=== PATIENT | female | born 1980 | race Two or more races ===

== ENCOUNTER 2016-06-27 13:14 | Emergency (ER) | payer OTHER ==
[2016-06-27 13:26] VITALS: TEMP 98; BMI 27.1
--- NOTE | 2016-06-27 13:28 | PDOC ---
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 HISTORY OF PRESENT ILLNESS: The patient's significant other states they were lying in bed this afternoon and while she was sleeping she began shaking and her eyes rolled back inside her head. He states it lasted about 1 minute and then she woke up with no knowledge of what happened. She admits that 2 days ago she had a few episodes of diarrhea, yesterday she vomited and felt lightheaded. She denies biting her tongue, urinary or bowel incontinence, neck pain, changes in vision/hearing. She admits she has chronically low sugar and has had low BP since she lost 110 pounds over the past 1 year. Vital signs on arrival are within normal limits. REVIEW OF SYSTEMS: GENERAL/CONSTITUTIONAL: No fever/chills. No weakness. No weight change. HEAD, EYES, EARS, NOSE AND THROAT: No change in vision. No ear pain or discharge. No sore throat. No tongue biting. CARDIOVASCULAR: No chest pain or shortness of breath. RESPIRATORY: No cough, wheezing, or hemoptysis. GASTROINTESTINAL: No abd pain, nausea, vomiting, diarrhea. GENITOURINARY: No dysuria, frequency, or change in urination. MUSCULOSKELETAL: No joint or muscle swelling or pain. No neck or back pain. SKIN: No rash or easy bruising. NEUROLOGIC: +witnessed seizure. +headache. PHYSICAL EXAM: GENERAL: The patient is awake, alert, and fully oriented, in no acute distress. She is well appearing and ambulatory. HEAD: Normal with no signs of trauma. No hematomas. ENT: Pupils equal, round and reactive to light, extraocular movements intact, sclera anicteric, conjunctiva clear. Neck supple. No tongue lacerations. LUNGS: Clear to auscultation bilaterally. Normal excursion. No respiratory distress or use of accessory muscles. CV: RRR, S1/S2, no MRG. Cap refill < 2 sec. ABDOMEN: Soft, non-distended, non-tender even to deep palpation, no hepatomegaly or splenomegaly, no masses. EXTREMITIES: Normal range of motion, no edema. NEUROLOGICAL: Normal speech, normal gait. CN II-XII grossly intact. PSYCH: Normal mood, normal affect. SKIN: Warm, dry, normal turgor, no rashes or lesions noted. Past History - Past Medical History Allergies/Adverse Reactions: Allergies Allergy/AdvReac Type Severity Reaction Status Date / Time Iodinated Contrast Media - Allergy Verified 06/27/16 13:26 Oral and [Iodinated Contrast Media - IV Dye] mushroom Allergy Verified 06/27/16 13:26 Home Medications: Ambulatory Orders Cyanocobalamin [Vitamin B12 -] 1,000 mcg PO DAILY 06/27/16 Loratadine [Claritin] 10 mg PO DAILY 06/27/16 Meclizine HCl 0 mg PO PRN PRN 06/27/16 Methocarbamol 500 mg PO BID 06/27/16 Metoprolol Tartrate 25 mg PO BID 06/27/16 Naproxen [EC-Naprosyn] 375 mg PO BID PRN 06/27/16 Omeprazole 40 mg PO DAILY 06/27/16 Anemia: Yes Asthma: Yes Cancer: No Cardiac Disorders: Yes (tachy) CVA: No COPD: No CHF: No Dementia: No Diabetes: ("chronically hypoglycemic") GI Disorders: Yes (GASTRIC REFLUX) Disorders: No HTN: Yes Hypercholesterolemia: No Liver Disease: No Seizures: Yes Thyroid Disease: Yes - Surgical History Abdominal Surgery: Yes Appendectomy: No Cardiac Surgery: No Cholecystectomy: No GI Surgery: Yes (gastric bypass: 08/22/2015) Lung Surgery: No Neurologic Surgery: No - Reproductive History (#): 6 Para: 3 Tubal Ligation: Yes - Immunization History Td Vaccination: Yes TDAP Vaccination: Yes Immunization Up to Date: Yes - Psycho/Social/Smoking Cessation Hx Anxiety: No Suicidal Ideation: No Smoking Status: Yes Smoking History: Never smoked Have you smoked in the past 12 months: No Number of Cigarettes Smoked Daily: 0 Cigars Per Day: 0 Hx Alcohol Use: No Drug/Substance Use Hx: No Substance Use Type: None Hx Substance Use Treatment: No *Physical Exam - Vital Signs Last Vital Signs Temp Pulse Resp BP Pulse Ox 98 F 72 18 104/80 100 06/27/16 13:21 06/27/16 13:21 06/27/16 13:21 06/27/16 13:21 06/27/16 13:21 Heart Score/ECG Review - ECG Intrepretation Comment:: Twelve-lead EKG was performed and reviewed by Dr. Talley. There is normal sinus rhythm with a normal rate. The axis is normal. The intervals are normal. There are no ST or T wave abnormalities. Impression: Normal twelve-lead EKG ED Treatment Course - LABORATORY CBC & Chemistry Diagram: 06/27/16 13:50 06/27/16 13:50 Medical Decision Making - Medical Decision Making A/P: 36 y/o female with prior history of stress induced seizures (not on medication) with witnessed seizure today. Plan is as follows: 1. EKG 2. Labs to check glucose and electrolytes 3. UA/hcg 4. Head CT 5. IV fluids Labs normal EKG normal Head CT IMPRESSION: No evidence of acute intracranial pathology. Discussed all results with the patient. Will not start her on daily seizure medication. Instructed her to f/u with Dr. Fiore as soon as possible and return to the ER with any worsening or concerning symptoms. The patient verbalizes understanding of all instructions, has no further questions and is awaiting discharge. *DC/Admit/Observation/Transfer Diagnosis at time of Disposition: Seizure - Discharge Dispostion Disposition: HOME Condition at time of disposition: Good - Referrals Referrals: Santino Guevara [Primary Care Provider] - Ryland Fiore MD [Staff Physician] - Call tomorrow - Patient Instructions Printed Discharge Instructions: DI for Seizure (Not Epilepsy/Seizure Disorder) Additional Instructions: Discharge Instructions: -All of your lab work and the CT scan of your head were normal -Please call Dr. Fiore tomorrow to schedule a follow up appointment -Return to the ER with any worsening or concerning symptoms
[2016-06-27] MEDS ORDERED: SODIUM CHLORIDE 500 ML IV STA (13:37)
[2016-06-27 14:26] LABS: BASOPHIL 0.5 % (0-2.0); EOSINOPHIL 3.6 % (0-4.5); MCH 29.6 pg (25.7-33.7); MCHC 33.6 g/dl (32.0-36.0); MEAN CELL VOLUME 88.1 fl (80-96); NEUTROPHILS 69.6 % (42.8-82.8); PLATELET COUNT 162 K/MM3 (134-434); RDW 13.4 % (11.6-15.6); WHITE BLOOD COUNT 7.4 K/mm3 (4.0-10.0)
[2016-06-27 14:49] LABS: ALBUMIN 3.5 g/dl (3.4-5.0); ANION GAP 5 (8-16); CALCIUM 8.6 mg/dL (8.5-10.1); CO2 27 mmol/L (21-32); CREATININE 0.8 mg/dL (0.55-1.02); GLUCOSE,RANDOM 87 mg/dL (74-106); SGOT/AST 11 U/L (15-37); SGPT/ALT 18 U/L (12-78)
[2016-06-27 14:51] LABS: ALK PHOS 88 U/L (45-117); BILIRUBIN,TOTAL 0.7 mg/dL (0.2-1.0); TOT PROT 6.4 g/dl (6.4-8.2)
--- NOTE | 2016-06-27 16:46 | PDOC ---
*Physical Exam - Vital Signs Last Vital Signs Temp Pulse Resp BP Pulse Ox 98 F 72 18 160/90 100 06/27/16 13:21 06/27/16 13:21 06/27/16 13:21 06/27/16 14:41 06/27/16 13:21 ED Treatment Course - LABORATORY CBC & Chemistry Diagram: 06/27/16 13:50 06/27/16 13:50 - ADDITIONAL ORDERS Additional order review: Laboratory Results 06/27/16 06/27/16 15:06 13:50 Sodium 139 Potassium 4.6 Chloride 107 Carbon Dioxide 27 Anion Gap 5 L BUN 9 Creatinine 0.8 Creat Clearance w eGFR > 60 Random Glucose 87 Calcium 8.6 Magnesium 2.0 Total Bilirubin 0.7 D AST 11 L D ALT 18 D Alkaline Phosphatase 88 Total Protein 6.4 Albumin 3.5 D Serum , Qual Negative 06/27/16 13:50 RBC 4.69 MCV 88.1 MCHC 33.6 RDW 13.4 MPV 10.0 Neutrophils % 69.6 Lymphocytes % 20.7 Monocytes % 5.6 Eosinophils % 3.6 D Basophils % 0.5 - Medications Given in the ED: ED Medications Discontinued Medications Generic Name Dose Route Start Last Admin Trade Name Freq PRN Reason Stop Dose Admin Sodium Chloride 500 mls @ 500 mls/hr 06/27/16 13:37 06/27/16 14:41 Normal Saline - IV 06/27/16 14:36 500 mls/hr ASDIR STA Administration Medical Decision Making - Medical Decision Making 06/27/16 16:43 Patient seen and evaluated with the nurse practitioner. I agree with the overall evaluation, assessment, and management with the following summary of visit: 36y/o F h/o seizures now resolved and off antiepileptics, h/o gastric bypass p/ w GTC seizure in her sleep this AM. lasted < 1 minute, brief post-ictal now feels well. no recent infections. VSS neuro intact labs, CT head, urine all negative. agrees with d/c, understands return criteria. If sz repeat, should restart her meds. Otherwise will f/u with neuro. *DC/Admit/Observation/Transfer Diagnosis at time of Disposition: Seizure - Discharge Dispostion Disposition: HOME Condition at time of disposition: Good - Referrals Referrals: Ryland Fiore MD [Staff Physician] - Call tomorrow Santino Guevara [Primary Care Provider] - - Patient Instructions Printed Discharge Instructions: DI for Seizure (Not Epilepsy/Seizure Disorder) Additional Instructions: Discharge Instructions: -All of your lab work and the CT scan of your head were normal -Please call Dr. Fiore tomorrow to schedule a follow up appointment -Return to the ER with any worsening or concerning symptoms - Post Discharge Activity
[2016-06-27 16:49] VITALS: BP 152/70; PULSE 69
--- NOTE | 2016-06-28 12:30 | EKG ---
Test Reason : Blood Pressure : / mmHG Vent. Rate : 065 BPM Atrial Rate : 065 BPM P-R Int : 138 ms QRS Dur : 056 ms QT Int : 364 ms P-R-T Axes : 000 059 031 degrees QTc Int : 378 ms POOR DATA QUALITY, INTERPRETATION MAY BE ADVERSELY AFFECTED NORMAL SINUS RHYTHM NORMAL ECG WHEN COMPARED WITH ECG OF 30-NOV-2012 15:21, QT HAS SHORTENED Confirmed by MARIANA ELLSWORTH, JUAN ALBERTO ([id number]) on 06/28/2016 12:30:07 PM Referred By: Confirmed By:JUAN ALBERTO PEÑA MD
== END 2016-06-27 16:49 | disposition home or self-care (01) ==
LOC: JER 13:14
PROC: 3E0337Z Introduction of Electrolytic and Water Balance Substance into Peripheral Vein, Percutaneous Approach (ICD-10-PCS; principal; 2016-06-27)
DX: G40.509 Epileptic seizures related to external causes, not intractable, without status epilepticus (principal); I10 Essential (primary) hypertension; K21.9 Gastro-esophageal reflux disease without esophagitis; E16.1 Other hypoglycemia; E07.9 Disorder of thyroid, unspecified
CPT/HCPCS: 36415; 70450-TC; 80053; 83735; 84703; 85025; 93005; 93010; 99283-25

== ENCOUNTER 2016-07-25 21:36 | Emergency (ER) | payer OTHER ==
[2016-07-25 23:04] VITALS: BP 109/66; PULSE 68; TEMP 99.5; BMI 25.8
--- NOTE | 2016-07-26 00:18 | PDOC ---
History of Present Illness - History of Present Illness Initial Comments: 07/26/16 00:44 Patient is a 36 year old female with significant medical hx of asthma, vertigo, GERD, and HTN who is presenting to the ED with two days of left sided chest pain , nasal congestion, sore throat, and cough. Patient describes her chest pain as sharp and non-radiating that hurts when she presses on it. The patient also endorses some facial tenderness, chills, and productive cough with green sputum production. Denies fever. Patient notes shes taken percocet for her symptoms which provided relief. Lnmp: 2012 (uterine ablation) <Rebecca Mota - Last Filed: 07/26/16 00:44> - General History Source: Patient, Old Records Exam Limitations: No Limitations <Muriel Vargas - Last Filed: 07/26/16 00:51> <Justice Ramos - Last Filed: 07/26/16 06:20> - General Chief Complaint: Pain Stated Complaint: ASTHMA Time Seen by Provider: 07/25/16 23:24 Past History <Rebecca Mota - Last Filed: 07/26/16 00:44> - Past Medical History Anemia: Yes Asthma: Yes Cancer: No Cardiac Disorders: Yes (tachy) CVA: No COPD: No CHF: No Dementia: No Diabetes: ("chronically hypoglycemic") GI Disorders: Yes (GASTRIC REFLUX) Disorders: No HTN: Yes Hypercholesterolemia: No Liver Disease: No Seizures: Yes Thyroid Disease: Yes - Surgical History Abdominal Surgery: Yes Appendectomy: No Cardiac Surgery: No Cholecystectomy: No GI Surgery: Yes (gastric bypass: 08/22/2015) Lung Surgery: No Neurologic Surgery: No - Reproductive History (#): 6 Para: 3 Tubal Ligation: Yes - Immunization History Td Vaccination: Yes TDAP Vaccination: Yes Immunization Up to Date: Yes - Psycho/Social/Smoking Cessation Hx Anxiety: No Suicidal Ideation: No Smoking Status: Yes Smoking History: Never smoked Have you smoked in the past 12 months: No Number of Cigarettes Smoked Daily: 0 Cigars Per Day: 0 Information on smoking cessation initiated: No Hx Alcohol Use: No Drug/Substance Use Hx: No Substance Use Type: None Hx Substance Use Treatment: No <Muriel Vargas - Last Filed: 07/26/16 00:51> <Justice Ramos - Last Filed: 07/26/16 06:20> - Past Medical History Allergies/Adverse Reactions: Allergies Allergy/AdvReac Type Severity Reaction Status Date / Time Iodinated Contrast Media - Allergy Verified 07/26/16 00:42 Oral and [Iodinated Contrast Media - IV Dye] mushroom Allergy Verified 07/26/16 00:42 Home Medications: Ambulatory Orders Cyanocobalamin [Vitamin B12 -] 1,000 mcg PO DAILY 06/27/16 Loratadine [Claritin] 10 mg PO DAILY 06/27/16 Meclizine HCl 0 mg PO PRN PRN 06/27/16 Methocarbamol 500 mg PO BID 06/27/16 Metoprolol Tartrate 25 mg PO BID 06/27/16 Naproxen [EC-Naprosyn] 375 mg PO BID PRN 06/27/16 Omeprazole 40 mg PO DAILY 06/27/16 Amoxicillin/Potassium Clav [Augmentin 875-125 Tablet] 1 each PO BID #14 tablet 07/26/16 Ibuprofen 800 mg PO TID #30 tablet 07/26/16 Loratadine [Claritin] 10 mg PO DAILY #30 tablet 07/26/16 Review of Systems - Review of Systems Comments:: 07/26/16 00:45 GENERAL/CONSTITUTIONAL: Chills, generalized weakness. No fever. HEAD, EYES, EARS, NOSE AND THROAT: Sore throat, nasal congestion. Facial tenderness. No change in vision. No ear pain or discharge. CARDIOVASCULAR: Chest pain. No shortness of breath. RESPIRATORY: Productive cough. No wheezing or hemoptysis. GASTROINTESTINAL: No nausea, vomiting, diarrhea or constipation. GENITOURINARY: No dysuria, frequency, or change in urination. MUSCULOSKELETAL: No joint or muscle swelling or pain. No neck or back pain. ENDOCRINE: No increased thirst. No abnormal weight change. SKIN: No rash NEUROLOGIC: No headache, vertigo, loss of consciousness, or change in strength/ sensation. <Rebecca Mota - Last Filed: 07/26/16 00:44> *Physical Exam - Vital Signs Last Vital Signs Temp Pulse Resp BP Pulse Ox 99.5 F 68 14 109/66 100 07/25/16 21:47 07/25/16 21:47 07/25/16 21:47 07/25/16 21:47 07/25/16 21:47 - Physical Exam Comments: 07/26/16 00:47 GENERAL: Awake, alert, and fully oriented, in no acute distress HEAD: No signs of trauma EYES: PERRLA, EOMI, sclera anicteric, conjunctiva clear ENT: Auricles normal inspection, hearing grossly normal, nares patent. Left TM erythematous. Right TM normal with positive light reflex. Oropharynx mildly erythematous but no exudates. Moist mucosa NECK: Normal ROM, supple, posterior cervical lymphadenopathy, JVD, or masses LUNGS: Breath sounds equal, clear to auscultation bilaterally. No wheezes, and no crackles HEART: Regular rate and rhythm, normal S1 and S2, no murmurs, rubs or gallops ABDOMEN: Soft, nontender, normoactive bowel sounds. No guarding, no rebound. No masses EXTREMITIES: Normal range of motion, no edema. No clubbing or cyanosis. No cords, erythema, or tenderness NEUROLOGICAL: Cranial nerves II through XII grossly intact. Normal speech, normal gait SKIN: Warm, Dry, normal turgor, no rashes or lesions noted. HEMATOLOGIC/LYMPHATIC: No anemia, easy bleeding, or history of blood clots. ALLERGIC/IMMUNOLOGIC: No hives or skin allergy. <Rebecca Mota - Last Filed: 07/26/16 00:44> - Vital Signs Last Vital Signs Temp Pulse Resp BP Pulse Ox 99.5 F 68 14 109/66 100 07/25/16 21:47 07/25/16 21:47 07/25/16 21:47 07/25/16 21:47 07/25/16 21:47 <Muirel Vargas - Last Filed: 07/26/16 00:51> - Vital Signs Last Vital Signs Temp Pulse Resp BP Pulse Ox 99.5 F 68 14 109/66 100 07/25/16 21:47 07/25/16 21:47 07/25/16 21:47 07/25/16 21:47 07/25/16 21:47 <Justice Ramos - Last Filed: 07/26/16 06:20> ED Treatment Course - Medications Given in the ED: ED Medications Discontinued Medications Generic Name Dose Route Start Last Admin Trade Name Freq PRN Reason Stop Dose Admin Acetaminophen 1,000 mg 07/26/16 00:26 07/26/16 00:32 Tylenol - PO 07/26/16 00:27 1,000 mg ONCE ONE Administration <Rebecca Mota - Last Filed: 07/26/16 00:44> - ADDITIONAL ORDERS Additional order review: Laboratory Results 07/26/16 00:19 Urine HCG, Qual Negative 07/26/16 00:20 Influenza Types A,B Antigen (SURINDER) - Final Nasopharyngeal Swab - Final 07/26/16 00:20 Group A Strep Rapid Antigen - Final Throat - Medications Given in the ED: ED Medications Discontinued Medications Generic Name Dose Route Start Last Admin Trade Name Roz PRN Reason Stop Dose Admin Acetaminophen 1,000 mg 07/26/16 00:26 07/26/16 00:32 Tylenol - PO 07/26/16 00:27 1,000 mg ONCE ONE Administration Amoxicillin/Clavulanate Potassium 1 tab 07/26/16 01:30 07/26/16 01:54 Augmentin - 875mg Tablet PO 07/26/16 01:31 1 tab ONCE ONE Administration <Justice Ramos - Last Filed: 07/26/16 06:20> Medical Decision Making - Medical Decision Making 07/26/16 00:51 36-year-old female with history of asthma, vertigo presents the emergency department with 2 day history of left-sided neck and ear pain as well as cough productive with green sputum and pleuritic chest pain. Differential diagnosis includes but is not limited to: Influenza, URI, pneumonia, strep pharyngitis, otitis media. Plan: 1. EKG 2. Chest x-ray 3. Influenza PCR 4. Rapid check 5. Observe and reevaluate <Muriel Vargas - Last Filed: 07/26/16 00:51> *DC/Admit/Observation/Transfer - Attestations Scribe Attestion: 07/26/16 00:49 Documentation prepared by Rebecca Mota, acting as health care / medical job titles for Muriel Vargas MD. <Rebecca Mota - Last Filed: 07/26/16 00:44> - Attestations Physician Attestion: 07/26/16 00:53 I, Dr. Muriel Vargas, attest that the scribes documentation that appears above has been prepared under my direction and personally reviewed by me in its entirety. I confirmed that the note above accurately reflects all work, treatment, procedures, and medical decision-making performed by me. <Muriel Vargas - Last Filed: 07/26/16 00:51> - Discharge Dispostion Admit: No <TimothyJustice solis - Last Filed: 07/26/16 06:20> Diagnosis at time of Disposition: Left otitis media, URI (upper respiratory infection) - Discharge Dispostion Disposition: HOME Condition at time of disposition: Stable - Prescriptions Prescriptions: Amoxicillin/Potassium Clav [Augmentin 875-125 Tablet] 1 each PO BID #14 tablet Loratadine [Claritin] 10 mg PO DAILY #30 tablet Ibuprofen 800 mg PO TID #30 tablet - Referrals Referrals: Santino Guevara [Primary Care Provider] -
[2016-07-26] MEDS ORDERED: ACETAMINOPHEN 500 MG TABLET (FP) PO ONE (00:26)
[2016-07-26] MEDS ORDERED: ACETAMINOPHEN 325 MG TABLET (FP) ONE (00:30)
[2016-07-26] MEDS ORDERED: AMOX TR/POT CLAV 875MG/125MG TABLETS (FP) PO ONE (01:30)
[2016-07-26] MEDS ORDERED: AMOX TR/POT CLAV 875MG/125MG TABLETS (FP) ONE (01:54)
--- NOTE | 2016-07-26 11:32 | EKG ---
Test Reason : Blood Pressure : / mmHG Vent. Rate : 073 BPM Atrial Rate : 073 BPM P-R Int : 150 ms QRS Dur : 076 ms QT Int : 366 ms P-R-T Axes : 064 050 034 degrees QTc Int : 403 ms NORMAL SINUS RHYTHM NORMAL ECG WHEN COMPARED WITH ECG OF 27-JUN-2016 13:57, NO SIGNIFICANT CHANGE WAS FOUND Confirmed by JUAN ALBERTO PEÑA MD ([id number]) on 07/26/2016 11:32:26 AM Referred By: Confirmed By:JUAN ALBERTO PEÑA MD
== END 2016-07-26 06:28 | disposition home or self-care (01) ==
LOC: JER 21:36
DX: J06.9 Acute upper respiratory infection, unspecified (principal); H66.92 Otitis media, unspecified, left ear
CPT/HCPCS: 71020-TC; 84703; 87070; 87430; 87804; 93005; 93010; 99282-25

== ENCOUNTER 2016-09-08 12:30 | Emergency (ER) | payer OTHER ==
[2016-09-08 12:36] VITALS: BMI 25.8
--- NOTE | 2016-09-08 12:48 | PDOC ---
History of Present Illness - General History Source: Patient Exam Limitations: No Limitations <Ghazal Nava - Last Filed: 09/08/16 16:28> - General History Source: Patient Exam Limitations: No Limitations - History of Present Illness Initial Comments: 09/08/16 13:38 The patient is a 36 year old female with past medical history of hypertension, GERD, vertigo, stress induced seizures who presents to the ED with complaints of RUQ pain for the past several days. She states the pain is stabbing and radiates down to her RLQ. It is accompanied with nausea, vomiting, and diarrhea as well. She denies any melena or hematochezia. She reports eating breakfast this morning and drinking plenty of water. The patient denies any fever, chills , cough, shortness of breath, chest pain, or urinary symptoms. She adds that she suffers from chronically low blood sugar and low blood pressure. Surgical Hx: Gastric bypass 1 year ago, , uterine ablation PCP: Isabell Beth <Airam Benitez - Last Filed: 09/08/16 16:32> - General Chief Complaint: Pain Stated Complaint: ABD PAIN (PCP SENT) Time Seen by Provider: 09/08/16 12:46 Past History - Past Medical History Anemia: Yes Asthma: Yes Cancer: No Cardiac Disorders: Yes (tachy) CVA: No COPD: No CHF: No Dementia: No Diabetes: ("chronically hypoglycemic") GI Disorders: Yes (GASTRIC REFLUX) Disorders: No HTN: Yes Hypercholesterolemia: No Liver Disease: No Seizures: Yes Thyroid Disease: Yes - Surgical History Abdominal Surgery: Yes Appendectomy: No Cardiac Surgery: No Cholecystectomy: No GI Surgery: Yes (gastric bypass: 08/22/2015) Lung Surgery: No Neurologic Surgery: No - Reproductive History (#): 6 Para: 3 Tubal Ligation: Yes - Immunization History Td Vaccination: Yes TDAP Vaccination: Yes Immunization Up to Date: Yes - Psycho/Social/Smoking Cessation Hx Anxiety: No Suicidal Ideation: No Smoking Status: Yes Smoking History: Never smoked Have you smoked in the past 12 months: No Number of Cigarettes Smoked Daily: 0 Cigars Per Day: 0 Hx Alcohol Use: No Drug/Substance Use Hx: No Substance Use Type: None Hx Substance Use Treatment: No <Ghazal Nava - Last Filed: 09/08/16 16:28> <Airam Benitez - Last Filed: 09/08/16 16:32> - Past Medical History Allergies/Adverse Reactions: Allergies Allergy/AdvReac Type Severity Reaction Status Date / Time Iodinated Contrast Media - Allergy Verified 09/08/16 12:36 Oral and [Iodinated Contrast Media - IV Dye] mushroom Allergy Verified 09/08/16 12:36 Home Medications: Ambulatory Orders Cyanocobalamin [Vitamin B12 -] 1,000 mcg PO DAILY 06/27/16 Methocarbamol 500 mg PO BID 06/27/16 Metoprolol Tartrate 25 mg PO BID 06/27/16 Omeprazole 40 mg PO DAILY 06/27/16 Ibuprofen 800 mg PO TID #30 tablet 07/26/16 Loratadine [Claritin] 10 mg PO DAILY #30 tablet 07/26/16 Dicyclomine HCl [Bentyl] 10 mg PO BID PRN #10 capsule 09/08/16 Ondansetron HCl [Zofran] 4 mg PO BID PRN #10 tablet 09/08/16 Oxycodone HCl/Acetaminophen [Percocet 10-325 mg Tablet] 1 each PO BID 09/08/16 Review of Systems - Review of Systems Able to Perform ROS?: Yes Comments:: 09/08/16 13:39 GENERAL/CONSTITUTIONAL: No fever or chills. No weakness. HEAD, EYES, EARS, NOSE AND THROAT: No change in vision. No ear pain or discharge. No sore throat. CARDIOVASCULAR: No chest pain or shortness of breath. RESPIRATORY: No cough, wheezing, or hemoptysis. GASTROINTESTINAL: Present: RUQ pain, nausea, vomiting, diarrhea No constipation. GENITOURINARY: No dysuria, frequency, or change in urination. MUSCULOSKELETAL: No joint or muscle swelling or pain. No neck or back pain. SKIN: No rash NEUROLOGIC: No headache, vertigo, loss of consciousness, or change in strength/ sensation. ENDOCRINE: No increased thirst. No abnormal weight change. HEMATOLOGIC/LYMPHATIC: No anemia, easy bleeding, or history of blood clots. ALLERGIC/IMMUNOLOGIC: No hives or skin allergy. All Other Systems: Reviewed and Negative <Airam Benitez - Last Filed: 09/08/16 16:32> *Physical Exam - Vital Signs Last Vital Signs Temp Pulse Resp BP Pulse Ox 98.3 F 70 20 110/59 100 07/01/17 12:33 09/08/16 12:33 09/08/16 12:33 09/08/16 12:33 09/08/16 12:33 <Ghazal Nava - Last Filed: 09/08/16 16:28> - Vital Signs Last Vital Signs Temp Pulse Resp BP Pulse Ox 98.3 F 70 20 110/59 100 09/08/16 12:33 09/08/16 12:33 09/08/16 12:33 09/08/16 12:33 09/08/16 12:33 - Physical Exam Comments: 09/08/16 13:41 GENERAL: Awake, alert, and fully oriented, in no acute distress HEAD: No signs of trauma EYES: PERRLA, EOMI, sclera anicteric, conjunctiva clear ENT: Auricles normal inspection, hearing grossly normal, nares patent, oropharynx clear without exudates. Moist mucosa NECK: Normal ROM, supple, no lymphadenopathy, JVD, or masses LUNGS: Breath sounds equal, clear to auscultation bilaterally. No wheezes, and no crackles HEART: Regular rate and rhythm, normal S1 and S2, no murmurs, rubs or gallops ABDOMEN: RUQ and RLQ tenderness, RUQ is worse than RLQ. Soft, normoactive bowel sounds. No guarding, no rebound. No masses EXTREMITIES: Normal range of motion, no edema. No clubbing or cyanosis. No cords, erythema, or tenderness NEUROLOGICAL: Cranial nerves II through XII grossly intact. Normal speech, normal gait SKIN: Warm, Dry, normal turgor, no rashes or lesions noted. <Airam Benitez - Last Filed: 09/08/16 16:32> ED Treatment Course - LABORATORY CBC & Chemistry Diagram: 09/08/16 13:13 09/08/16 13:13 <Ghazal Nava - Last Filed: 09/08/16 16:28> - LABORATORY CBC & Chemistry Diagram: 09/08/16 13:13 09/08/16 13:13 - ADDITIONAL ORDERS Additional order review: Laboratory Results 09/08/16 12:52 Serum , Qual Negative Urine Color Yellow Urine Appearance Clear Urine pH 6.0 Urine Protein Negative Urine Glucose (UA) Negative Urine Ketones Trace H Urine Blood Negative Urine Nitrite Negative Urine Bilirubin Negative Urine Urobilinogen Negative Ur Leukocyte Esterase Negative 09/08/16 13:13 RBC 4.66 MCV 87.2 MCHC 33.7 RDW 13.0 MPV 9.9 Neutrophils % 64.6 Lymphocytes % 25.6 D Monocytes % 7.2 Eosinophils % 1.8 Basophils % 0.8 <Airam Benitez - Last Filed: 09/08/16 16:32> Medical Decision Making - Medical Decision Making 09/08/16 12:47 A portion of this note was documented by scribe services under my direction. I have reviewed the details of the note, within reason, and agree with the documentation with the following case summary and management plan written by me. Nursing documentation reviewed and incorporated into medical decision making This is a 36 yo F with a history of gastric bypass, prior history of lichen planus (per patient caused by IV contrast) Pt presents to the ER with a complaint of abdominal pain, located on the right side of the abdomen for several days Pain located in the RUQ by does radiate down to the RLQ Pain increases when she eats She denies fevers or chills She has had no vomiting History of chronic back pain as well No recent travel No ill contacts Currently pain is sharp, constant Pain worsens with palpation of the abdomen No alleviating factors DD: cholelithiasis, cholecystitis, colitis, Appendicitis Will do labs Will do US Dr Murray was consulted by CNM He saw this patient in consultation 09/08/16 16:10 Laboratory Tests 09/08/16 09/08/16 09/08/16 12:52 13:13 13:13 WBC 8.0 Hgb 13.7 Hct 40.6 Plt Count 174 Sodium 140 Potassium 4.0 Chloride 103 Carbon Dioxide 29 BUN 14 D Creatinine 0.7 Random Glucose 85 Serum , Qual Negative Urine Blood Negative Urine Nitrite Negative Ur Leukocyte Esterase Negative 09/08/16 16:13 CT: no acute appendicitis, no colitis, no mass, no fluid collection U/S no evidence of cholelithiasis, cholecystitis Vitals repeated Pt states her blood pressure runs low Dr Murray updated Will discharge to home follow up with bariatric surgeon 09/08/16 16:28 <Ghazal Nava - Last Filed: 09/08/16 16:28> - Medical Decision Making 09/08/16 14:15 Abdominal Ultrasound as reviewed by Dr. Leong reports normal abdominal sonogram without acute pathology. 09/08/16 16:31 Abdominal/Pelvic C scan as reviewed by Dr. Leong report no acute pathology. <Airam Benitez - Last Filed: 09/08/16 16:32> *DC/Admit/Observation/Transfer - Discharge Dispostion Admit: No <Ghazal Nava - Last Filed: 09/08/16 16:28> - Attestations Scribe Attestion: 09/08/16 13:41 Documentation prepared by Airam Benitez, acting as district medical examiner for Ghazal Nava MD. <Airam Benitez - Last Filed: 09/08/16 16:32> Diagnosis at time of Disposition: Abdominal pain Qualifiers: Abdominal location: right upper quadrant Qualified Code(s): R10.11 - Right upper quadrant pain - Discharge Dispostion Disposition: HOME Condition at time of disposition: Stable - Prescriptions Prescriptions: Dicyclomine HCl [Bentyl] 10 mg PO BID PRN #10 capsule PRN Reason: abdominal pain Ondansetron HCl [Zofran] 4 mg PO BID PRN #10 tablet PRN Reason: Nausea - Referrals Referrals: Isabell Beth [Primary Care Provider] - - Patient Instructions Printed Discharge Instructions: DI for Abdominal Pain-Adult Additional Instructions: Thank you for coming in to the ER today Please take medications as prescribed Please follow up with your gastric surgeon within 1 week (to re assess your surgical site) Please also follow up with Project Management Professor as you may need an endoscopy Please return to the ER for persistent symptoms or new symptoms Please review your studies
--- NOTE | 2016-09-08 13:14 | CONSULT ---
Consult Consult Specialty:: Surgery Reason for Consultation:: Abdominal pain - History of Present Illness History of Present Illness: 36 female presents with on and off abdominal pain x several days Pain is mostly in her RUQ but radiates to the RLQ States that it increases when she eats Has a history of a Abhay en Y gastric Bypass last year at [facility] Denies fevers/chills No vomiting + Diarrhea History of chronic back pain as well - History Source History Provided By: Patient Limitations to Obtaining History: No Limitations - Past Medical History Gastrointestinal: Yes: Other (Morbid obesity s/p abhay en Y gastric bypass) ...LMP: 08/11/15 - Past Surgical History Past Surgical History: Yes: Bariatric Surgery (Gastric bypass) - Alcohol/Substance Use Hx Alcohol Use: No - Smoking History Smoking history: Never smoked Have you smoked in the past 12 months: No Aproximately how many cigarettes per day: 0 Home Medications - Allergies Allergies/Adverse Reactions: Allergies Allergy/AdvReac Type Severity Reaction Status Date / Time Iodinated Contrast Media - Allergy Verified 09/08/16 12:36 Oral and [Iodinated Contrast Media - IV Dye] mushroom Allergy Verified 09/08/16 12:36 - Home Medications Home Medications: Ambulatory Orders Cyanocobalamin [Vitamin B12 -] 1,000 mcg PO DAILY 06/27/16 Loratadine [Claritin] 10 mg PO DAILY 06/27/16 Meclizine HCl 0 mg PO PRN PRN 06/27/16 Methocarbamol 500 mg PO BID 06/27/16 Metoprolol Tartrate 25 mg PO BID 06/27/16 Naproxen [EC-Naprosyn] 375 mg PO BID PRN 06/27/16 Omeprazole 40 mg PO DAILY 06/27/16 Amoxicillin/Potassium Clav [Augmentin 875-125 Tablet] 1 each PO BID #14 tablet 07/26/16 Ibuprofen 800 mg PO TID #30 tablet 07/26/16 Loratadine [Claritin] 10 mg PO DAILY #30 tablet 07/26/16 Family Disease History - Family Disease History Family History: Unremarkable Review of Systems - Review of Systems Constitutional: denies: Chills, Fever Neck: reports: No Symptoms Cardiovascular: denies: Chest Pain Respiratory: denies: Cough Gastrointestinal: reports: Abdominal Pain, Diarrhea. denies: Nausea, Vomiting Genitourinary: reports: No Symptoms Neurological: denies: Change in LOC Pain Intensity: 4 Physical Exam Vital Signs: Vital Signs Temperature 98.3 F 09/08/16 12:33 Pulse Rate 70 09/08/16 12:33 Respiratory Rate 20 09/08/16 12:33 Blood Pressure 110/59 09/08/16 12:33 O2 Sat by Pulse Oximetry (%) 100 09/08/16 12:33 Constitutional: Yes: Calm Eyes: Yes: WNL HENT: Yes: WNL Neck: Yes: Supple Cardiovascular: Yes: Regular Rate and Rhythm Respiratory: Yes: CTA Bilaterally Gastrointestinal: Yes: Soft, Tenderness (RUQ mild tenderness, no Mccray's sign) . No: Tenderness, Rebound Extremities: Yes: WNL Neurological: Yes: Alert, Oriented Problem List - Problems (1) Abdominal pain Code(s): R10.9 - UNSPECIFIED ABDOMINAL PAIN Qualifiers: Abdominal location: right upper quadrant Qualified Code(s): R10.11 - Right upper quadrant pain Assessment/Plan 36 female with Right sided abdominal pain mostly in the RUQ NPO IV fluids CT A/P- rule out appendicitis U/S- evaluate her gallbladder CBC, CMP Will follow
[2016-09-08 13:15] LABS: URINE APPEARANCE CLEAR; URINE BILIRUBIN NEGATIVE (NEGATIVE); URINE BLOOD NEGATIVE (NEGATIVE); URINE COLOR YELLOW; URINE GLUCOSE (UA) NEGATIVE (NEGATIVE); URINE KETONE TRACE (NEGATIVE); URINE LEUK ESTERASE NEGATIVE (NEGATIVE); URINE NITRITE NEGATIVE (NEGATIVE); URINE PROTEIN NEGATIVE (NEGATIVE); URINE UROBILINOGEN NEGATIVE E.U./dl (0.2-1.0)
[2016-09-08 13:16] LABS: BASOPHIL 0.8 % (0-2.0); EOSINOPHIL 1.8 % (0-4.5); MCH 29.4 pg (25.7-33.7); MCHC 33.7 g/dl (32.0-36.0); MEAN CELL VOLUME 87.2 fl (80-96); MEAN PLT VOLUME 9.9 fl (7.5-11.1); NEUTROPHILS 64.6 % (42.8-82.8); PLATELET COUNT 174 K/MM3 (134-434)
[2016-09-08 13:40] LABS: ALK PHOS 91 U/L (45-117); ANION GAP 8 (8-16); BILIRUBIN,TOTAL 0.5 mg/dL (0.2-1.0); CO2 29 mmol/L (21-32); CREATININE 0.7 mg/dL (0.55-1.02); GLUCOSE,RANDOM 85 mg/dL (74-106); SGOT/AST 9 U/L (15-37); SGPT/ALT 17 U/L (12-78); TOT PROT 7.2 g/dl (6.4-8.2)
[2016-09-08 16:20] VITALS: BP 97/58; PULSE 65; TEMP 98.2
== END 2016-09-08 16:46 | disposition home or self-care (01) ==
LOC: JER 12:30
DX: R10.9 Unspecified abdominal pain (principal); Z98.84 Bariatric surgery status; I10 Essential (primary) hypertension
CPT/HCPCS: 36415; 74176-TC; 76705-TC; 80053; 81003; 84703; 85025; 87086; 99284-25

== ENCOUNTER 2016-10-13 13:10 | Emergency (ER) | payer OTHER ==
[2016-10-13 13:18] VITALS: BP 108/65; PULSE 67; TEMP 98.1; BMI 24.3
[2016-10-13] MEDS ORDERED: MAG HYDROX/AL HYDROX/SIMETH 30 ML UNIT-DOSE CUP PO ONE (13:35)
[2016-10-13] MEDS ORDERED: FAMOTIDINE 20 MG/50 ML IVPB 50 ML IVPB ONE ×2 (13:35→13:51)
[2016-10-13] MEDS ORDERED: SUCRALFATE 1 GM/10 ML UNIT DOSE CUPS PO ONE (13:35)
[2016-10-13] MEDS ORDERED: morphine CARPU-JECT 4 MG/1 ML DISP.SYRIN IVPUSH ONE (13:35)
--- NOTE | 2016-10-13 13:47 | PDOC ---
History of Present Illness - General Chief Complaint: Pain, Acute Stated Complaint: BACK/STOMACH PAIN Time Seen by Provider: 10/13/16 13:27 History Source: Patient - History of Present Illness Timing/Duration: reports: other (this am) Abdominal Pain Onset Location: reports: RUQ, epigastric Past History - Past Medical History Allergies/Adverse Reactions: Allergies Allergy/AdvReac Type Severity Reaction Status Date / Time Iodinated Contrast- Oral and Allergy Verified 10/13/16 13:15 IV Dye [Iodinated Contrast Media - IV Dye] mushroom Allergy Verified 10/13/16 13:15 Home Medications: Ambulatory Orders Cyanocobalamin [Vitamin B12 -] 1,000 mcg PO DAILY 06/27/16 Methocarbamol 500 mg PO BID 06/27/16 Metoprolol Tartrate 25 mg PO BID 06/27/16 Omeprazole 40 mg PO DAILY 06/27/16 Ibuprofen 800 mg PO TID #30 tablet 07/26/16 Loratadine [Claritin] 10 mg PO DAILY #30 tablet 07/26/16 Dicyclomine HCl [Bentyl] 10 mg PO BID PRN #10 capsule 09/08/16 Ondansetron HCl [Zofran] 4 mg PO BID PRN #10 tablet 09/08/16 Oxycodone HCl/Acetaminophen [Percocet 10-325 mg Tablet] 1 each PO BID 09/08/16 Sucralfate 1 gm PO BID #420 oral.susp 10/13/16 Anemia: Yes Asthma: Yes Cancer: No Cardiac Disorders: Yes (tachy) CVA: No COPD: No CHF: No Dementia: No Diabetes: ("chronically hypoglycemic") GI Disorders: Yes (GASTRIC REFLUX) Disorders: No HTN: Yes Hypercholesterolemia: No Liver Disease: No Seizures: Yes Thyroid Disease: Yes - Surgical History Abdominal Surgery: Yes Appendectomy: No Cardiac Surgery: No Cholecystectomy: No GI Surgery: Yes (gastric bypass: 08/22/2015) Lung Surgery: No Neurologic Surgery: No - Reproductive History (#): 6 Para: 3 Tubal Ligation: Yes - Immunization History Td Vaccination: Yes TDAP Vaccination: Yes Immunization Up to Date: Yes - Psycho/Social/Smoking Cessation Hx Anxiety: No Suicidal Ideation: No Smoking Status: Yes Smoking History: Never smoked Have you smoked in the past 12 months: No Number of Cigarettes Smoked Daily: 0 Cigars Per Day: 0 Hx Alcohol Use: No Drug/Substance Use Hx: No Substance Use Type: None Hx Substance Use Treatment: No Review of Systems - Review of Systems Constitutional: No: Chills, Fever Respiratory: No: Cough, Shortness of Breath Cardiac (ROS): No: Chest Pain ABD/GI: Yes: Nausea. No: Blood Streaked Bowels, Constipated, Diarrhea, Rectal Bleeding, Vomiting : No: Burning, Dysuria, Flank Pain, Hematuria Musculoskeletal: Yes: Back Pain Neurological: No: Numbness, Tingling, Weakness *Physical Exam - Vital Signs Last Vital Signs Temp Pulse Resp BP Pulse Ox 98.1 F 67 19 108/65 98 10/13/16 13:15 10/13/16 13:15 10/13/16 13:15 10/13/16 13:15 10/13/16 13:15 - Physical Exam General Appearance: Yes: Appropriately Dressed. No: Apparent Distress HEENT: positive: Normal Voice Neck: positive: Supple Respiratory/Chest: positive: Lungs Clear, Normal Breath Sounds. negative: Respiratory Distress Cardiovascular: positive: Regular Rate, S1, S2 Gastrointestinal/Abdominal: positive: Normal Bowel Sounds, Tender (minimal ttp to RUQ and epigastrium), Soft. negative: Distended, Guarding, Rebound, Mass, Hepatomegaly, Spleenomegaly Musculoskeletal: positive: Normal Inspection. 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 Patient states this a.m. she developed right upper quadrant pain that is constant, with no exacerbating or alleviating factors. Also endorses nausea, no vomiting, acute change in bowel movements or dysuria. Patient states she's had similar right upper quadrant pain in the past and was seen here at [facility] and had negative US and CAT scan. Patient also complaining of epigastric pain that might be similar to her ulcer but is unsure. Took galviscon and tums w/ no relief. No melena or hematochezia. Patient also reports that her usual back pain was exacerbated this a.m. and that Percocet is no longer working. No LE weakness, saddle anesthesia or B/B incontinence. Denies any recent trauma. Patient adds that her menses came on this a.m. but denies any lower abdominal cramping See exam RUQ Recurrent Neg US (no gallstones seen) and CT > 3 weeks ago at [facility] Well brianna w/ minimal ttp on exam, neg murpehys -labs -pain control Epigastric pain Endorses h/o ulcer on scope 6 months ago at OSH, neg for hpylori per pt On omeprazole daily +ttp to epigastrium on exam -GI cocktail -reassess Acute on chronic back pain On perc w/ no relief now No e/o cauda equina or infxn -pain control 10/13/16 13:47 10/13/16 14:40 Patient reports feeling significantly better with meds. Labs unremarkable. Patient requesting refill of her percocet in ED. I performed ISTOP on pt, and noted multiple rx for percocet, which appears to be written by 1 provider, for the most part. No suspicious activity on records. I explained to patient that she will need refill from her pain management doctor who she already has an agreement with but that I would give her 1 percocet tab to take at home as needed until she can see her pain provider. Prescription for sucralfate will also be sent to pharmacy. Patient instructed to follow-up with her heavy equipment technician 10/13/16 14:48 *DC/Admit/Observation/Transfer Diagnosis at time of Disposition: Abdominal pain Qualifiers: Abdominal location: unspecified location Qualified Code(s): R10.9 - Unspecified abdominal pain Low back pain Qualifiers: Chronicity: acute Back pain laterality: unspecified Sciatica presence: without sciatica Qualified Code(s): M54.5 - Low back pain - Discharge Dispostion Disposition: HOME Condition at time of disposition: Improved - Prescriptions Prescriptions: Sucralfate 1 gm PO BID #420 oral.susp - Patient Instructions Printed Discharge Instructions: Low Back Pain Additional Instructions: Take meds as directed and f/u with your GI doc and your pain management doctor
[2016-10-13] MEDS ORDERED: morphine CARPU-JECT 4 MG/1 ML DISP.SYRIN ONE (13:50)
[2016-10-13] MEDS ORDERED: SUCRALFATE 1 GM TABLET (FP) ONE (13:50)
[2016-10-13] MEDS ORDERED: MAG HYDROX/AL HYDROX/SIMETH 30 ML UNIT-DOSE CUP ONE (13:51)
[2016-10-13 14:07] LABS: BASOPHIL 0.7 % (0-2.0); EOSINOPHIL 2.8 % (0-4.5); MCHC 33.2 g/dl (32.0-36.0); MEAN CELL VOLUME 87.6 fl (80-96); MEAN PLT VOLUME 9.2 fl (7.5-11.1); NEUTROPHILS 65.4 % (42.8-82.8); PLATELET COUNT 176 K/MM3 (134-434); RDW 13.4 % (11.6-15.6); WHITE BLOOD COUNT 7.7 K/mm3 (4.0-10.0)
[2016-10-13 14:11] LABS: URINE APPEARANCE CLEAR; URINE BLOOD NEGATIVE (NEGATIVE); URINE COLOR AMBER; URINE GLUCOSE (UA) NEGATIVE (NEGATIVE); URINE KETONE NEGATIVE (NEGATIVE); URINE LEUK ESTERASE NEGATIVE (NEGATIVE); URINE NITRITE NEGATIVE (NEGATIVE); URINE PROTEIN NEGATIVE (NEGATIVE); URINE UROBILINOGEN 4.0 E.U/dl mg/dL (0.2-1.0)
[2016-10-13 14:32] LABS: ALBUMIN 3.6 g/dl (3.4-5.0); ANION GAP 5 (8-16); BILIRUBIN,TOTAL 0.5 mg/dL (0.2-1.0); CALCIUM 8.6 mg/dL (8.5-10.1); CO2 28 mmol/L (21-32); CREATININE 0.8 mg/dL (0.55-1.02); GLUCOSE,RANDOM 91 mg/dL (74-106); SGOT/AST 8 U/L (15-37); SGPT/ALT 19 U/L (12-78); TOT PROT 6.4 g/dl (6.4-8.2)
[2016-10-13 14:33] LABS: ALK PHOS 80 U/L (45-117)
[2016-10-13] MEDS ORDERED: OXYCODONE/APAP 5/325MG COMBO TABLET PO ONE (14:40)
[2016-10-13] MEDS ORDERED: OXYCODONE/APAP 5/325MG COMBO TABLET ONE (14:51)
--- NOTE | 2016-10-13 18:50 | PDOC ---
*Physical Exam - Vital Signs Last Vital Signs Temp Pulse Resp BP Pulse Ox 98.1 F 67 19 108/65 98 10/13/16 13:15 10/13/16 13:15 10/13/16 13:15 10/13/16 13:15 10/13/16 13:15 ED Treatment Course - LABORATORY CBC & Chemistry Diagram: 10/13/16 13:50 10/13/16 13:50 - ADDITIONAL ORDERS Additional order review: Laboratory Results 10/13/16 10/13/16 13:50 13:50 Sodium 138 Potassium 4.4 Chloride 105 Carbon Dioxide 28 Anion Gap 5 L BUN 15 Creatinine 0.8 Creat Clearance w eGFR > 60 Random Glucose 91 Calcium 8.6 Total Bilirubin 0.5 AST 8 L ALT 19 Alkaline Phosphatase 80 Total Protein 6.4 Albumin 3.6 Lipase 74 Urine Color Felicia Urine Appearance Clear Urine pH 5.0 Ur Specific [place] >= 1.030 H Urine Protein Negative Urine Glucose (UA) Negative Urine Ketones Negative Urine Blood Negative Urine Nitrite Negative Urine Bilirubin 2.0 Urine Urobilinogen 4.0 e.u/dl H Ur Leukocyte Esterase Negative 10/13/16 13:50 RBC 4.48 MCV 87.6 MCHC 33.2 RDW 13.4 MPV 9.2 Neutrophils % 65.4 Lymphocytes % 24.5 Monocytes % 6.6 Eosinophils % 2.8 Basophils % 0.7 - Medications Given in the ED: ED Medications Discontinued Medications Generic Name Dose Route Start Last Admin Trade Name Freq PRN Reason Stop Dose Admin Al Hydroxide/Mg Hydroxide 30 ml 10/13/16 13:35 10/13/16 14:01 Mylanta Oral Suspension - PO 10/13/16 13:36 30 ml ONCE ONE Administration Famotidine/Sodium Chloride 50 mls @ 100 mls/hr 10/13/16 13:35 10/13/16 14:01 Pepcid 20 Mg Premixed Ivpb - IVPB 10/13/16 14:04 100 mls/hr ONCE ONE Administration Morphine Sulfate 2 mg 10/13/16 13:35 10/13/16 14:01 Morphine Injection - IVPUSH 10/13/16 13:36 2 mg ONCE ONE Administration Oxycodone/Acetaminophen 1 combo 10/13/16 14:40 10/13/16 14:56 Percocet 5/325 - PO 10/13/16 14:41 1 combo ONCE ONE Administration Sucralfate 1 gm 10/13/16 13:35 10/13/16 14:01 Carafate Oral Suspension - PO 10/13/16 13:36 1 gm ONCE ONE Administration Medical Decision Making - Medical Decision Making 10/13/16 18:52 Agree with PA's evaluation, asseessment, and plan. 36 F with acute on chronic abdominal pain, now resolved s/p GI meds - DC home with GI f/u *DC/Admit/Observation/Transfer Diagnosis at time of Disposition: Abdominal pain Qualifiers: Abdominal location: unspecified location Qualified Code(s): R10.9 - Unspecified abdominal pain Low back pain Qualifiers: Chronicity: acute Back pain laterality: unspecified Sciatica presence: without sciatica Qualified Code(s): M54.5 - Low back pain - Discharge Dispostion Disposition: HOME Condition at time of disposition: Improved - Prescriptions Prescriptions: Sucralfate 1 gm PO BID #420 oral.susp - Referrals Referrals: Santino Guevara [Primary Care Provider] - - Patient Instructions Printed Discharge Instructions: Low Back Pain Additional Instructions: Take meds as directed and f/u with your GI doc and your pain management doctor - Post Discharge Activity - Attestations Physician Attestion: 10/13/16 18:53 I, Dr. Rogers Castaneda MD, attest that this document has been prepared under my direction and personally reviewed by me in its entirety. I further attest, that it accurately reflects all work, treatment, procedures and medical decision -making performed by me.
== END 2016-10-13 14:58 | disposition home or self-care (01) ==
LOC: JER 13:10
PROC: 3E033GC Introduction of Other Therapeutic Substance into Peripheral Vein, Percutaneous Approach (ICD-10-PCS; principal; 2016-10-13)
PROC: 3E033NZ Introduction of Analgesics, Hypnotics, Sedatives into Peripheral Vein, Percutaneous Approach (ICD-10-PCS; 2016-10-13)
DX: R10.9 Unspecified abdominal pain (principal); M54.5 Low back pain; G89.29 Other chronic pain; I10 Essential (primary) hypertension; D64.9 Anemia, unspecified; J45.909 Unspecified asthma, uncomplicated; K21.9 Gastro-esophageal reflux disease without esophagitis; G40.909 Epilepsy, unspecified, not intractable, without status epilepticus; Z91.041 Radiographic dye allergy status; Z91.018 Allergy to other foods; Z98.84 Bariatric surgery status
CPT/HCPCS: 36415; 80053; 81003; 83690; 85025; 96365; 96375; 99284-25

== ENCOUNTER 2016-11-01 03:10 | Emergency (ER) | payer OTHER ==
[2016-11-01] MEDS ORDERED: SODIUM CHLORIDE 0.9% 1000 ML INFUS.BAG IV ONE (03:24)
[2016-11-01 03:34] VITALS: BP 112/73; PULSE 72; TEMP 98.3; BMI 24.3
--- NOTE | 2016-11-01 03:50 | PDOC ---
Attending Attestation - Resident Resident Name: Maurice Mix - ED Attending Attestation I have performed the following: I have examined & evaluated the patient, The case was reviewed & discussed with the resident, I agree w/resident's findings & plan, Exceptions are as noted - HPI HPI: 11/01/16 03:48 history of gastric bypass. Patient has hypoglycemia. Patient states she ate just prior to going to bed. Pt s/p seizure due to hypoglycemia. Pt denies any complaints at this time. Denies fever or dysuria - Physicial Exam PE: 11/01/16 03:48 *Physical Exam General Appearance: Yes: Appropriately Dressed. No: Apparent Distress, Intoxicated HEENT: positive: EOMI, JOSE, Normal ENT Inspection, Normal Voice, TMs Normal, Pharynx Normal. negative: Pale Conjunctivae, Photophobia, Scleral Icterus (R), Scleral Icterus (L) Neck: positive: Trachea midline, Normal Thyroid, Supple. negative: Tender, Rigid, Carotid bruit, Stridor, Lymphadenopathy (R), Lymphadenopathy (L), Thyromegaly Respiratory/Chest: positive: Lungs Clear, Normal Breath Sounds. negative: Chest Tender, Respiratory Distress, Accessory Muscle Use, Labored Respiration, RES, Crackles, Rales, Rhonchi, Stridor, Wheezing, Dullness Cardiovascular: positive: Regular Rhythm, Regular Rate, S1, S2. negative: Edema , JVD, Murmur, Bradycardia, Tachycardia Vascular Pulses: Dorsalis-Pedis (R): 2+, Doralis-Pedis (L): 2+ Gastrointestinal/Abdominal: positive: Normal Bowel Sounds, Flat, Soft. negative : Tender, Organomegaly, Pulsatile Mass, Increased Bowel Sounds, Decreased BS, Distended, Guarding, Rebound, Hernia, Hepatomegaly, Spleenomegaly Lymphatic: negative: Adenopathy, Tenderness Musculoskeletal: positive: Normal Inspection. negative: CVA Tenderness, Decreased Range of Motion Extremity: positive: Normal Capillary Refill, Normal Inspection, Normal Range of Motion, Pelvis Stable. negative: Tender, Pedal Edema, Swelling, Erythema Integumentary: positive: Normal Color, Dry, Warm. 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 negative: EOM Palsy, Facial Droop, Sensory Deficit - Medical Decision Making 11/01/16 19:37 Pt discharged as all studies were stable.
[2016-11-01 03:59] LABS: BASOPHIL 0.5 % (0-2.0); MCH 29.6 pg (25.7-33.7); MCHC 33.7 g/dl (32.0-36.0); MEAN CELL VOLUME 88.1 fl (80-96); MEAN PLT VOLUME 9.9 fl (7.5-11.1); NEUTROPHILS 61.1 % (42.8-82.8); PLATELET COUNT 184 K/MM3 (134-434); RDW 13.8 % (11.6-15.6); WHITE BLOOD COUNT 9.6 K/mm3 (4.0-10.0)
--- NOTE | 2016-11-01 04:03 | PDOC ---
History of Present Illness - General Stated Complaint: DIABETES Time Seen by Provider: 11/01/16 03:23 History Source: Patient Exam Limitations: No Limitations - History of Present Illness Initial Comments: 11/01/16 04:49 The patient is a 36F with a PMH of hypoglycemia who presented to the ED via EMS for a witnessed seizure, possibly 2/2 to a hypoglycemic episode. The daughter is present and providing some of the history. The daughter states that she heard her mother having some deep breathing then saw her shaking. The mother was disoriented when she woke up from her seizure. No head trauma and no tongue biting was noted. EMS was called and BG was 62 on their arrival. BP was 128/62. They administered D10 with fluids and her BG was 142 on recheck. She was stable on arrival. Past History - Past Medical History Allergies/Adverse Reactions: Allergies Allergy/AdvReac Type Severity Reaction Status Date / Time Iodinated Contrast- Oral and Allergy Verified 11/01/16 04:35 IV Dye [Iodinated Contrast Media - IV Dye] mushroom Allergy Verified 11/01/16 04:35 Home Medications: Ambulatory Orders Metoprolol Tartrate 25 mg PO BID 06/27/16 Oxycodone HCl/Acetaminophen [Percocet 10-325 mg Tablet] 1 each PO BID 09/08/16 Metformin HCl [Glucophage] 500 mg PO 11/01/16 Anemia: Yes Asthma: Yes Cancer: No Cardiac Disorders: Yes (tachy) CVA: No COPD: No CHF: No Dementia: No Diabetes: ("chronically hypoglycemic") GI Disorders: Yes (GASTRIC REFLUX) Disorders: No HTN: Yes Hypercholesterolemia: No Liver Disease: No Seizures: Yes Thyroid Disease: Yes - Surgical History Abdominal Surgery: Yes Appendectomy: No Cardiac Surgery: No Cholecystectomy: No GI Surgery: Yes (gastric bypass: 08/22/2015) Lung Surgery: No Neurologic Surgery: No - Reproductive History (#): 6 Para: 3 Tubal Ligation: Yes - Immunization History Td Vaccination: Yes TDAP Vaccination: Yes Immunization Up to Date: Yes - Psycho/Social/Smoking Cessation Hx Anxiety: No Suicidal Ideation: No Smoking Status: Yes Smoking History: Never smoked Have you smoked in the past 12 months: No Number of Cigarettes Smoked Daily: 0 Cigars Per Day: 0 Hx Alcohol Use: No Drug/Substance Use Hx: No Substance Use Type: None Hx Substance Use Treatment: No Review of Systems - Review of Systems Able to Perform ROS?: Yes Is the patient limited [place]ian proficient: No Constitutional: No: Chills, Fever HEENTM: No: Blurred Vision Respiratory: No: Shortness of Breath Cardiac (ROS): No: Chest Pain ABD/GI: No: Nausea, Vomiting, Other (abd pain) : No: Burning, Dysuria Neurological: Yes: Headache. No: Numbness, Tingling, Weakness *Physical Exam - Vital Signs Last Vital Signs Temp Pulse Resp BP Pulse Ox 98.3 F 72 18 112/73 100 11/01/16 03:15 11/01/16 03:15 11/01/16 03:15 11/01/16 03:15 11/01/16 03:15 - Physical Exam General Appearance: Yes: Nourished, Appropriately Dressed. No: Mild Distress HEENT: positive: Normal Voice, Hearing Grossly Normal Respiratory/Chest: positive: Lungs Clear, Normal Breath Sounds. negative: Chest Tender, Respiratory Distress, Accessory Muscle Use Cardiovascular: positive: Regular Rhythm, Regular Rate, S1, S2. negative: Diastolic Murmur, Systolic Murmur Gastrointestinal/Abdominal: positive: Normal Bowel Sounds, Flat, Soft. negative : Tender, Protuberent, Distended, Guarding, Rebound Extremity: negative: Swelling, Calf Tenderness Integumentary: positive: Dry, Warm. 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 negative: EOM Palsy, Facial Droop, Numbness, Sensory Deficit, Depressed Affect ED Treatment Course - LABORATORY CBC & Chemistry Diagram: 11/01/16 03:34 11/01/16 03:34 Medical Decision Making - Medical Decision Making 11/01/16 05:24 The patient is a 36F with a PMH of hypoglycemia who presented to the ED via EMS after having a witnessed seizure. The patient did not hit her head. She is currently on a D10 drip and BG is being monitored. Basic labs have been sent. Will reassess when labs return. 11/01/16 06:14 Repeat BG is 170. Patient desires d/c. All labs WNL. *DC/Admit/Observation/Transfer Diagnosis at time of Disposition: Hypoglycemia - Discharge Dispostion Disposition: HOME Condition at time of disposition: Improved Admit: No - Patient Instructions Printed Discharge Instructions: DI for Hypoglycemia, Hypoglycemia Additional Instructions: Please return to the ED if symptoms persist, worsen, or if new symptoms arise. Please follow up with your primary care doctor in 2-3 days. - Attestations Physician Attestion: 11/01/16 06:15 I, Dr. Maurice Mix, attest that this document has been prepared under my direction and personally reviewed by me in its entirety. I further attest, that it accurately reflects all work, treatment, procedures, and medical decision- making performed by me.
[2016-11-01 04:22] LABS: ALBUMIN 3.6 g/dl (3.4-5.0); ALK PHOS 76 U/L (45-117); ANION GAP 6 (8-16); BILIRUBIN,TOTAL 0.3 mg/dL (0.2-1.0); CALCIUM 8.5 mg/dL (8.5-10.1); CO2 29 mmol/L (21-32); CREATININE 0.8 mg/dL (0.55-1.02); GLUCOSE,RANDOM 79 mg/dL (74-106); SGOT/AST 6 U/L (15-37); SGPT/ALT 17 U/L (12-78); TOT PROT 6.4 g/dl (6.4-8.2)
[2016-11-01 05:17] LABS: URINE APPEARANCE CLEAR; URINE BILIRUBIN NEGATIVE (NEGATIVE); URINE BLOOD NEGATIVE (NEGATIVE); URINE COLOR YELLOW; URINE GLUCOSE (UA) 1+ (NEGATIVE); URINE KETONE NEGATIVE (NEGATIVE); URINE LEUK ESTERASE NEGATIVE (NEGATIVE); URINE NITRITE NEGATIVE (NEGATIVE); URINE PROTEIN NEGATIVE (NEGATIVE)
--- NOTE | 2016-11-01 10:51 | EKG ---
Test Reason : Blood Pressure : / mmHG Vent. Rate : 063 BPM Atrial Rate : 063 BPM P-R Int : 146 ms QRS Dur : 076 ms QT Int : 378 ms P-R-T Axes : 076 071 058 degrees QTc Int : 386 ms NORMAL SINUS RHYTHM SEPTAL INFARCT , AGE UNDETERMINED ABNORMAL ECG WHEN COMPARED WITH ECG OF 26-JUL-2016 01:16, NO SIGNIFICANT CHANGE WAS FOUND Confirmed by MARIANA ELLSWORTH, JUAN ALBERTO ([id number]) on 11/01/2016 10:51:01 AM Referred By: Confirmed By:JUAN ALBERTO PEÑA MD
== END 2016-11-01 05:20 | disposition home or self-care (01) ==
LOC: JER 03:10
DX: E11.649 Type 2 diabetes mellitus with hypoglycemia without coma (principal); Z79.84 Long term (current) use of oral hypoglycemic drugs; G40.909 Epilepsy, unspecified, not intractable, without status epilepticus
CPT/HCPCS: 36415; 80053; 81003; 84703; 85025; 93005; 93010; 99282-25

== ENCOUNTER 2017-01-08 11:35 | Emergency (ER) | payer OTHER ==
[2017-01-08 11:52] VITALS: BP 117/66; PULSE 78; TEMP 98.2; BMI 24.3
--- NOTE | 2017-01-08 13:11 | PDOC ---
History of Present Illness - General Chief Complaint: Pain, Acute Stated Complaint: POST OP/ MOUTH PAIN Time Seen by Provider: 01/08/17 12:51 History Source: Patient Exam Limitations: No Limitations - History of Present Illness Initial Comments: 01/08/17 13:29 Chief complaint:Headache , pain at extraction site upper and rt. lower posterior molar HPI: She is a 36-year-old female with a history of anemia, asthma, tachycardia, GERD, hypertension, and gastric sleeve here today due to having the patient describes as a migraine generalized headache and nausea today unrelieved by taking ibuprofen. Patient reports having extraction of her bilateral upper wisdom tooth and right lower wisdom tooth on 12/31/2016. Patient denies any fever. So reports being slightly nauseous denies any vomiting. Patient denies any chance of had tubal ligation. PMH: asthma, gerd, Meds: pen vk 500 mg bid Allergies: iodinated contrast, oral and IV dye, mushrrom PSH:, gastric bypass, gerd tubal ligation, anemia, tachycardia REVIEW OF SYSTEMS GENERAL/CONSTITUTIONAL: No fever or chills. No weakness. No weight change. HEAD, EYES, EARS, NOSE AND THROAT: No change in vision, photophobia, phonophobia. No ear pain or discharge. No sore throat Pain posterior upper and rt lower posterior molar site CARDIOVASCULAR: No chest pain or shortness of breath. RESPIRATORY: No cough, wheezing, or hemoptysis. GASTROINTESTINAL: nausea, no vomiting. No diarrhea or constipation. No rectal bleeding. GENITOURINARY: No dysuria, frequency, or change in urination. MUSCULOSKELETAL: No joint or muscle swelling or pain. No neck or back pain. SKIN AND BREASTS: No rash or easy bruising. NEUROLOGIC: headache, denies vertigo, loss of consciousness, altered mental status, or loss of sensation. PHYSICAL EXAM General Appearance: Appropriately dressed. No apparent distress, no intoxication HEENT: EOMI, JOSE. No nystagmus. Normal voice. TMs normal, pharynx normal. No pallor of conjunctivae, no scleral icterus, extraction cavity posterior molar b/ l upper and rt. lower minimal surrounding edema Neck: Supple, trachea midline. No tenderness, rigidity, carotid bruit, stridor , lymphadenopathy, thyromegaly. Respiratory/Chest: Lungs CTAB. Breath sounds normal. No chest tenderness, despiratory ristress, accessory muscle Use, labored respiration, crackles, rales, rhonchi, stridor, wheezing, dullness Cardiovascular: Regular Rhythm, Regular Rate, S1, S2. No JVD, Murmur, Bradycardia, Tachycardia Vascular Pulses: Dorsalis-Pedis (R): 2+, Doralis-Pedis (L): 2+] Gastrointestinal/Abdominal: positive for Normal Bowel Sounds, Flat, Soft. No Tenderness, Organomegaly, Pulsatile Mass, Distention, Guarding, Rebound, Hernia , Hepatomegaly, Spleenomegaly Musculoskeletal: Normal Inspection. No CVA Tenderness, Decreased Range of Motion] Integumentary: Normal Color, Dry, Warm, . 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 No appreciable EOM Palsy, Facial Droop or Sensory Deficit 01/08/17 13:41 01/08/17 14:37 Timing/Duration: getting worse Severity: mild Associated Symptoms: reports: headaches, nausea/vomiting (NAUSEA TODAY ) Past History - Past Medical History Allergies/Adverse Reactions: Allergies Allergy/AdvReac Type Severity Reaction Status Date / Time Iodinated Contrast- Oral and Allergy Severe Swelling Verified 01/08/17 11:47 IV Dye [Iodinated Contrast Media - IV Dye] mushroom Allergy Severe Rash Verified 01/08/17 11:47 Home Medications: Ambulatory Orders Albuterol Sulfate [Proair Respiclick] 90 mcg IH ASDIR 01/08/17 Omeprazole 20 mg PO ASDIR 01/08/17 Anemia: Yes Asthma: Yes Cancer: No Cardiac Disorders: Yes (tachy) CVA: No COPD: No CHF: No Dementia: No Diabetes: ("chronically hypoglycemic") GI Disorders: Yes (GASTRIC REFLUX) Disorders: No HTN: Yes Hypercholesterolemia: No Liver Disease: No Seizures: Yes Thyroid Disease: Yes - Surgical History Abdominal Surgery: Yes Appendectomy: No Cardiac Surgery: No Cholecystectomy: No GI Surgery: Yes (gastric bypass: 08/22/2015) Lung Surgery: No Neurologic Surgery: No - Reproductive History (#): 6 Para: 3 Tubal Ligation: Yes - Immunization History Td Vaccination: Yes TDAP Vaccination: Yes Immunization Up to Date: Yes - Suicide/Smoking/Psychosocial Hx Smoking Status: Yes Smoking History: Never smoked Have you smoked in the past 12 months: No Number of Cigarettes Smoked Daily: 0 Cigars Per Day: 0 Hx Alcohol Use: No Drug/Substance Use Hx: No Substance Use Type: None Hx Substance Use Treatment: No Review of Systems - Review of Systems Able to Perform ROS?: Yes Constitutional: No: Symptoms Reported HEENTM: Yes: Mouth Pain (site of extractions wisdom upper and rt. lower) Respiratory: No: Symptoms reported Cardiac (ROS): No: Symptoms Reported ABD/GI: Yes: Nausea : No: Symptoms Reported Musculoskeletal: No: Symptoms Reported Integumentary: No: Symptoms Reported Neurological: Yes: Headache (generalized ) *Physical Exam - Vital Signs Last Vital Signs Temp Pulse Resp BP Pulse Ox 98.2 F 78 18 117/66 100 01/08/17 11:47 01/08/17 11:47 01/08/17 11:47 01/08/17 11:47 01/08/17 11:47 - Physical Exam General Appearance: Yes: Appropriately Dressed HEENT: positive: TMs Normal, Other (b/l upper posterior extraction site, rt. lower minimal surrounding edema). negative: Pharyngeal Erythema, Tonsillar Exudate, Tonsillar Erythema, Nasal Congestion, Rhinorrhea, Sinus Tenderness Neck: negative: Lymphadenopathy (R), Lymphadenopathy (L) Respiratory/Chest: positive: Lungs Clear, Normal Breath Sounds. negative: Chest Tender, Respiratory Distress Cardiovascular: positive: Regular Rhythm, Regular Rate, S1, S2 Gastrointestinal/Abdominal: positive: Normal Bowel Sounds, Soft. 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 negative: Respond to painful stimul, Numbness, Sensory Deficit Medical Decision Making - Medical Decision Making 01/08/17 13:41 She is a 36-year-old female with a history of anemia, asthma, tachycardia, GERD , hypertension, and gastric sleeve here today due to having the patient describes as a migraine generalized headache and nausea today unrelieved by taking ibuprofen. Patient reports having extraction of her bilateral upper wisdom tooth and right lower wisdom tooth on 12/31/2016. Patient denies any fever. So reports being slightly nauseous denies any vomiting. Patient denies any chance of had tubal ligation. Migraine Nausea PLAN: IV insert NS 1 liter bolus toradol 30 mg IV push reglan 10 mg IV PB Search Terms: Susan Mendosa, 1980 Search Date: 01/08/2017 01:16:30 PM This report was requested by: Katherine Dietrich | Reference #: [id number] Others' Prescriptions Patient Name: Susan Shaikh Date: 1980 Address: [address] [place] [address] Sex: Female Rx Written Rx Dispensed Drug Quantity Days Supply Prescriber Name 12/29/2016 12/31/2016 zolpidem tartrate 5 mg tablet 30 30 Ryanne Guevara MD 12/31/2016 12/31/2016 hydrocodone-acetaminophen 5-325 tablet 20 5 Dilshad Acuña () Patient Name: Susan Mendosa Date: 1980 Address: [address] [place] [address] Sex: Female Rx Written Rx Dispensed Drug Quantity Days Supply Prescriber Name 12/10/2016 12/24/2016 oxycodone-acetaminophen 10-325 mg tab 90 30 Aguila , Priscilla 01/08/17 14:39 feeling much better will go home follow up with oral surgeon continue with pen VK until finished *DC/Admit/Observation/Transfer Diagnosis at time of Disposition: Pain, dental Migraine Qualifiers: Migraine type: unspecified Status migrainosus presence: without status migrainosus Intractability: not intractable Qualified Code(s): G43.909 - Migraine, unspecified, not intractable, without status migrainosus - Discharge Dispostion Disposition: HOME Condition at time of disposition: Stable - Referrals Referrals: Santino Guevara [Primary Care Provider] - - Patient Instructions Additional Instructions: FOLLOW UP WITH ORAL SURGEON SOON POSSIBLE CONTINUE PENICILLIN UNTIL COMPLETED RETURN TO EMERGENCY ROOM IF SYMPTOMS WORSEN ANY FACIAL SWELLING OR FEVER OR WORSENING PAIN TAKE ACETAMINOPHEN NEEDED DIRECTED BY ACADEMIC ASSOCIATE PATIENT VOICED understanding of discharge instructions and all questions were answered Thank you for choosing [facility] emergency room for your medical needs today
[2017-01-08] MEDS ORDERED: KETOROLAC TROMETHAMINE 60 MG/2 ML VIAL IVPUSH ONE (13:20)
[2017-01-08] MEDS ORDERED: METOCLOPRAMIDE HCL INJECTION 10 MG/2 ML VIAL IVPB ONE (13:22)
[2017-01-08] MEDS ORDERED: METOCLOPRAMIDE HCL INJECTION 10 MG/2 ML VIAL ONE (13:23)
[2017-01-08] MEDS ORDERED: KETOROLAC TROMETHAMINE 30 MG/1 ML VIAL ONE (13:24)
[2017-01-08] MEDS ORDERED: SODIUM CHLORIDE 1,000 ML IV STA (13:47)
== END 2017-01-08 14:56 | disposition home or self-care (01) ==
LOC: JERFT 11:35
PROC: 3E0337Z Introduction of Electrolytic and Water Balance Substance into Peripheral Vein, Percutaneous Approach (ICD-10-PCS; principal; 2017-01-08)
PROC: 3E0333Z Introduction of Anti-inflammatory into Peripheral Vein, Percutaneous Approach (ICD-10-PCS; 2017-01-08)
PROC: 3E033GC Introduction of Other Therapeutic Substance into Peripheral Vein, Percutaneous Approach (ICD-10-PCS; 2017-01-08)
DX: G43.909 Migraine, unspecified, not intractable, without status migrainosus (principal); K08.9 Disorder of teeth and supporting structures, unspecified; G89.18 Other acute postprocedural pain
CPT/HCPCS: 96361; 96374; 96375; 99281-25

== ENCOUNTER 2017-03-27 10:49 | Emergency (ER) | payer OTHER ==
[2017-03-27 11:00] VITALS: BMI 24.3
--- NOTE | 2017-03-27 13:41 | PDOC ---
History of Present Illness - General Chief Complaint: Lightheaded Stated Complaint: FELL Time Seen by Provider: 03/27/17 13:24 History Source: Patient - History of Present Illness Initial Comments: 03/27/17 13:38 Patient is a 36 y.o. female with a PMH of seizure disorder (on Gabapentin, most recent seizure 01/2017 2/2 to hypoglycemia) and HTN who presents to the ED today following a mechanical fall down a flight of stairs. Patient states she was walking down a flight of stairs in her apartment complex when she caught her shoe on a nailhead protruding from the staircase. Patient states she attempted to brace her fall using the siderails but fell backwards hitting her back but denies any head trauma/LOC. Patient was immediately ambulatory after the fall and is now c/o diffuse back pain and B/L UE pain. Allergies: IV contrast Surgical: Gastric Bypass Past History - Past Medical History Allergies/Adverse Reactions: Allergies Allergy/AdvReac Type Severity Reaction Status Date / Time Iodinated Contrast- Oral and Allergy Severe Swelling Verified 03/27/17 11:00 IV Dye [Iodinated Contrast Media - IV Dye] mushroom Allergy Severe Rash Verified 03/27/17 11:00 Home Medications: Ambulatory Orders Gabapentin 100 mg PO HS 03/27/17 Metoprolol Succinate [Toprol Xl] 50 mg PO DAILY 03/27/17 Anemia: Yes Asthma: Yes Cancer: No Cardiac Disorders: Yes (tachy) CVA: No COPD: No CHF: No Dementia: No Diabetes: ("chronically hypoglycemic") GI Disorders: Yes (GASTRIC REFLUX) Disorders: No HTN: Yes Hypercholesterolemia: No Liver Disease: No Seizures: Yes Thyroid Disease: Yes - Surgical History Abdominal Surgery: No Appendectomy: No Cardiac Surgery: No Cholecystectomy: No GI Surgery: Yes (gastric bypass: 08/22/2015) Lung Surgery: No Neurologic Surgery: No - Reproductive History (#): 6 Para: 3 Tubal Ligation: Yes - Immunization History Td Vaccination: Yes TDAP Vaccination: Yes Immunization Up to Date: Yes - Suicide/Smoking/Psychosocial Hx Smoking Status: Yes Smoking History: Never smoked Have you smoked in the past 12 months: No Number of Cigarettes Smoked Daily: 0 Cigars Per Day: 0 Hx Alcohol Use: No Drug/Substance Use Hx: No Substance Use Type: None Hx Substance Use Treatment: No Review of Systems - Review of Systems Constitutional: No: Chills, Fever HEENTM: No: Blurred Vision, Double Vision Respiratory: No: Shortness of Breath Cardiac (ROS): No: Chest Pain ABD/GI: No: Constipated, Diarrhea, Nausea, Vomiting : No: Burning, Dysuria Musculoskeletal: Yes: Back Pain *Physical Exam - Vital Signs Last Vital Signs Temp Pulse Resp BP Pulse Ox 98.1 F 92 H 18 119/63 100 03/27/17 10:56 03/27/17 10:56 03/27/17 10:56 03/27/17 10:56 03/27/17 10:56 - Physical Exam General Appearance: Yes: Nourished, Appropriately Dressed HEENT: positive: EOMI, JOSE Neck: positive: Tender, Supple Respiratory/Chest: positive: Lungs Clear Cardiovascular: positive: S1, S2 Vascular Pulses: Dorsalis-Pedis (R): 2+, Doralis-Pedis (L): 2+ Gastrointestinal/Abdominal: positive: Normal Bowel Sounds, Soft Musculoskeletal: positive: Vertebral Tenderness Extremity: positive: Normal Capillary Refill, Normal Inspection, Normal Range of Motion, Pelvis Stable Integumentary: positive: Normal Color, Dry, Warm 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 On PE patient is hemodynamically stable, has full ROM of her extremities, neurologically intact and displays vertebral tenderness. Will XR spine and pain control with Tylenol. 03/27/17 15:54 C/L/T/S imaging negative for acute fracture or dislocation. Patient ambulatory , improved, tolerating PO intake and affirms understanding of her follow-up care. Patient to be discharged home with return precautions and NSAIDs for pain relief. *DC/Admit/Observation/Transfer Diagnosis at time of Disposition: Back pain - Discharge Dispostion Disposition: HOME Condition at time of disposition: Good Admit: No - Referrals Referrals: Santino Guevara [Primary Care Provider] - - Patient Instructions Printed Discharge Instructions: DI for Low Back Pain Additional Instructions: You can use Ibuprofen for your pain. Please return to the Emergency Department for any new/worsening/concerning symptoms. - Post Discharge Activity
[2017-03-27] MEDS ORDERED: IBUPROFEN 400 MG TABLET (FP) PO ONE ×2 (13:57→14:11)
--- NOTE | 2017-03-27 14:05 | PDOC ---
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 She states that she fell after catching her foot on a nail. No LOC. She states she tried to brace herself as she fell. Presents with BUE pain and diffuse back pain. Did not take anything for pain HVAC R TECH. - Physicial Exam PE: GENERAL: Awake, alert, and fully oriented, in no acute distress HEAD: No signs of trauma EYES: PERRLA, EOMI, sclera anicteric, conjunctiva clear ENT: Auricles normal inspection, hearing grossly normal, nares patent, oropharynx clear without exudates. Moist mucosa NECK: Normal ROM, supple, no lymphadenopathy, JVD, or masses LUNGS: Breath sounds equal, clear to auscultation bilaterally. No wheezes, and no crackles HEART: Regular rate and rhythm, normal S1 and S2, no murmurs, rubs or gallops ABDOMEN: Soft, nontender, normoactive bowel sounds. No guarding, no rebound. No masses EXTREMITIES: Normal range of motion, no edema. No clubbing or cyanosis. No cords, erythema, or tenderness NEUROLOGICAL: Cranial nerves II through XII grossly intact. Normal speech, normal gait SKIN: Warm, Dry, normal turgor, no rashes or lesions noted. SPINE: +Mild midline tenderness to C5-6, mid-T spine, and L3-5. +B/L lumbar soft tissue tenderness. - Medical Decision Making XR obtained for C, T, and L-spine. No acute findings. Low suspicion for fx. Stable for DC home.
[2017-03-27 16:45] VITALS: BP 110/72; PULSE 74; TEMP 98.5
== END 2017-03-27 16:45 | disposition home or self-care (01) ==
LOC: JER 10:49
DX: M54.89 Other dorsalgia (principal); W10.8XXA Fall (on) (from) other stairs and steps, initial encounter; Y93.89 Activity, other specified; Y92.038 Other place in apartment as the place of occurrence of the external cause; Y99.8 Other external cause status; I10 Essential (primary) hypertension; G40.509 Epileptic seizures related to external causes, not intractable, without status epilepticus; K21.9 Gastro-esophageal reflux disease without esophagitis
CPT/HCPCS: 72050-TC; 72070-TC; 72100-TC; 84703; 99282-25

== ENCOUNTER 2018-02-10 17:56 | Emergency (ER) | payer OTHER ==
[2018-02-10 18:13] VITALS: BMI 21.2
--- NOTE | 2018-02-10 18:15 | PDOC ---
Rapid Medical Evaluation Chief Complaint: Pain, Acute Time Seen by Provider: 02/10/18 18:10 Medical Evaluation: Allergies Allergy/AdvReac Type Severity Reaction Status Date / Time Iodinated Contrast- Oral and Allergy Severe Swelling Verified 02/10/18 18:09 IV Dye [Iodinated Contrast Media - IV Dye] mushroom Allergy Severe Rash Verified 02/10/18 18:09 12 18:10 I have performed a brief in-person evaluation of this patient. The patient presents with a chief complaint of:RUQ pain, worse after meals x 3 days. Pertinent physical exam findings: pale, RUQ tenderness I have ordered the following: CBC.CMP.Lipase. UA, UCG, US -RUQ The patient will proceed to the ED for further evaluation. 02/10/18 18:13 Discharge Disposition - Diagnosis Abdominal pain Qualifiers: Abdominal location: right upper quadrant Qualified Code(s): R10.11 - Right upper quadrant pain - Referrals Referrals: Santino Guevara [Primary Care Provider] - - Patient Instructions - Post Discharge Activity
[2018-02-10 18:38] LABS: BASO % 0.7 % (0-2.0); EOS % 2.6 % (0-4.5); HEMATOCRIT 41.1 % (32.4-45.2); HEMOGLOBIN 14.1 GM/dL (10.7-15.3); LYMPH % 18.7 % (8-40); MCH 30.2 pg (25.7-33.7); MCHC 34.4 g/dl (32.0-36.0); MEAN CELL VOLUME 87.7 fl (80-96); MEAN PLT VOLUME 9.5 fl (7.5-11.1); MONO % 4.6 % (3.8-10.2); NEUT % 73.4 % (42.8-82.8); PLATELET COUNT 228 K/MM3 (134-434); RBC 4.68 M/mm3 (3.60-5.2); RDW 12.4 % (11.6-15.6); WHITE BLOOD COUNT 8.7 K/mm3 (4.0-10.0)
[2018-02-10 18:42] LABS: URINE APPEARANCE CLEAR; URINE BILIRUBIN NEGATIVE (<2.0 mg/dL); URINE COLOR YELLOW; URINE GLUCOSE (UA) 1+ (NEGATIVE); URINE KETONE TRACE (NEGATIVE); URINE LEUK ESTERASE NEGATIVE (NEGATIVE); URINE NITRITE NEGATIVE (NEGATIVE); URINE PROTEIN NEGATIVE (NEGATIVE); URINE UROBILINOGEN 4.0 E.U/dl mg/dL (0.2-1.0)
[2018-02-10 18:44] LABS: HCG,QUALITATIVE URINE Negative
[2018-02-10 19:22] LABS: LIPASE 107 U/L (73-393)
--- NOTE | 2018-02-10 19:33 | PDOC ---
History of Present Illness - General Chief Complaint: Pain, Acute Stated Complaint: PAIN Time Seen by Provider: 02/10/18 18:10 History Source: Patient Exam Limitations: No Limitations - History of Present Illness Initial Comments: 02/10/18 19:29 Pt is a 37yo F with PMH of fibromyalgia, gastric bypass 2015, presenting to ED with complaints of RUQ pain that started 4 days ago. Pt says pain is in the RUQ , worsened after eating, radiates to the back, feels like a stabbing pain, 10/10 , not relieved by anything associated with nausea and 2 episodes of emesis which she describes as green that happened after she ate. She endorses fevers at home up to 101. She denies headaches, chest pain, diarrhea, blood in stool, urinary symptoms, numbness/tingling, weakness. Bypass done at [facility]. LMP today. Last BM today. PMD: Sun PMH: see hpi PSH: gastric bypass, breast reduction Meds: Percocet, gabapentin Allergies: contrast Past History - Past Medical History Allergies/Adverse Reactions: Allergies Allergy/AdvReac Type Severity Reaction Status Date / Time Iodinated Contrast- Oral and Allergy Severe Swelling Verified 02/10/18 18:09 IV Dye [Iodinated Contrast Media - IV Dye] mushroom Allergy Severe Rash Verified 02/10/18 18:09 Home Medications: Ambulatory Orders Gabapentin 100 mg PO HS 03/27/17 Oxycodone HCl/Acetaminophen [Percocet 5-325 mg Tablet] 1 tab PO Q6H PRN Tizanidine HCl [Zanaflex (Nf)] 4 mg PO ASDIR 02/10/18 Anemia: Yes Asthma: Yes Cancer: No Cardiac Disorders: Yes (tachy) CVA: No COPD: No CHF: No Dementia: No Diabetes: ("chronically hypoglycemic") GI Disorders: Yes (GASTRIC REFLUX) Disorders: No HTN: Yes Hypercholesterolemia: No Liver Disease: No Seizures: Yes Thyroid Disease: Yes - Surgical History Abdominal Surgery: No Appendectomy: No Cardiac Surgery: No Cholecystectomy: No GI Surgery: Yes (gastric bypass: 08/22/2015) Lung Surgery: No Neurologic Surgery: No - Reproductive History (#): 6 Para: 3 Tubal Ligation: Yes - Immunization History Td Vaccination: Yes TDAP Vaccination: Yes Immunization Up to Date: Yes - Suicide/Smoking/Psychosocial Hx Smoking Status: Yes Smoking History: Never smoked Have you smoked in the past 12 months: No Number of Cigarettes Smoked Daily: 0 Cigars Per Day: 0 Hx Alcohol Use: No Drug/Substance Use Hx: No Substance Use Type: None Hx Substance Use Treatment: No Review of Systems - Review of Systems Constitutional: Yes: Fever. No: Chills HEENTM: No: Symptoms Reported Respiratory: No: Cough, Shortness of Breath, Hemoptysis Cardiac (ROS): No: Chest Pain, Lightheadedness, Palpitations, Syncope ABD/GI: Yes: See HPI, Nausea, Vomiting. No: Constipated, Diarrhea, Rectal Bleeding, Tarry Stools : No: Burning, Dysuria Musculoskeletal: Yes: See HPI, Back Pain. No: Gout, Joint Pain, Neck Pain Integumentary: No: Symptoms Reported Neurological: No: Headache, Numbness, Tingling, Tremors, Weakness *Physical Exam - Vital Signs Last Vital Signs Temp Pulse Resp BP Pulse Ox 97.9 F 84 20 119/76 100 02/10/18 18:11 02/10/18 18:11 02/10/18 18:11 02/10/18 18:11 02/10/18 18:11 - Physical Exam General Appearance: Yes: Nourished, Appropriately Dressed. No: Apparent Distress HEENT: positive: EOMI, JOSE, Normal ENT Inspection Neck: positive: Trachea midline, Supple. negative: Lymphadenopathy (R), Lymphadenopathy (L) Respiratory/Chest: positive: Lungs Clear, Normal Breath Sounds. negative: Crackles, Rales, Rhonchi, Stridor, Wheezing Cardiovascular: positive: Regular Rhythm, Regular Rate, S1, S2. negative: Edema , JVD, Murmur Vascular Pulses: Carotid (R): 2+, Carotid (L): 2+, Dorsalis-Pedis (R): 2+, Doralis-Pedis (L): 2+ Gastrointestinal/Abdominal: positive: Normal Bowel Sounds, Soft, Tenderness (RUQ , RLQ). negative: Guarding, Rebound, Hernia, Mass Musculoskeletal: positive: CVA Tenderness (R). negative: CVA Tenderness (L), Vertebral Tenderness Extremity: positive: Normal Capillary Refill. negative: Swelling, Calf Tenderness Integumentary: positive: Normal Color, Dry, Warm, Other (old scar on abdomen from adhesive reaction) Neurologic: positive: shaper machine hand II-XII NML intact, Fully Oriented, Alert, Normal Mood/ Affect, Normal Response, Motor Strength 5/5 Moderate Sedation - Procedure Monitoring Vital Signs: Procedure Monitoring Vital Signs Temperature 97.9 F 02/10/18 18:11 Pulse Rate 84 02/10/18 18:11 Respiratory Rate 20 02/10/18 18:11 Blood Pressure 119/76 02/10/18 18:11 O2 Sat by Pulse Oximetry (%) 100 02/10/18 18:11 ED Treatment Course - LABORATORY CBC & Chemistry Diagram: 02/10/18 18:17 02/10/18 19:18 - ADDITIONAL ORDERS Additional order review: Laboratory Results 02/10/18 02/10/18 18:24 18:17 Lipase 107 Urine Color Yellow Urine Appearance Clear Urine pH 5.0 Ur Specific [place] 1.030 Urine Protein Negative Urine Glucose (UA) 1+ H Urine Ketones Trace H Urine Blood Negative Urine Nitrite Negative Urine Bilirubin Negative Urine Urobilinogen 4.0 e.u/dl H Ur Leukocyte Esterase Negative Urine HCG, Qual Negative 02/10/18 18:17 RBC 4.68 MCV 87.7 MCHC 34.4 RDW 12.4 D MPV 9.5 Neutrophils % 73.4 D Lymphocytes % 18.7 D Monocytes % 4.6 Eosinophils % 2.6 Basophils % 0.7 Medical Decision Making - Medical Decision Making Pt is a 37yo F with PMH of fibromyalgia, gastric bypass 2016, presenting to ED with complaints of RUQ pain that started 4 days ago. Vitals: wnl PE: RUQ >RLQ tenderness, R CVA/back tenderness. DDx: cholecystitis, pancreatitis, appendicitis, pancreatitis, nephrolithiaisis, pyelonephritis. Labs ordered by E. Upreg and UA negative. CBC and CMP wnl. RUQ ultrasound ordered. U/S: contracted GB. no signs of stones or evidence of cholecystis. Orderd fluids, 2mg morhpine and pepcid. CT ordered. CT showed signs of s/p bypass otherwise no pathology. Do not have reason as to why pt is having pain. Will possibly need endoscopy. 02/10/18 22:26 Pt has GI and can schedule appointment for this week. Feels better, pain is reduced. No acute pathology at this time, can be dc home. Has appropriate follow up. Pt agreed to plan. *DC/Admit/Observation/Transfer Diagnosis at time of Disposition: Abdominal pain Qualifiers: Abdominal location: right upper quadrant Qualified Code(s): R10.11 - Right upper quadrant pain - Discharge Dispostion Disposition: HOME Condition at time of disposition: Improved - Referrals Referrals: Santino Guevara [Primary Care Provider] - - Patient Instructions Printed Discharge Instructions: DI for Abdominal Pain-Adult Additional Instructions: You were seen here today for abdominal pain. Your tests were normal. The ultrasound did not show evidence of gallbladder disease and the CT scan did not show evidence of any infection or problems with your other organs. I highly recommend you make an appointment with your securities analyst for further evaluation and management of your symptoms. It is important to make this appointment to see what may be causing your pain. Continue to take antacids when you eat. Stay hydrated. Come back to the emergency room if your pain gets worse, you are unable to eat anything, there is blood in the vomit, you develop fever, you do not have any bowel movements or if any new concerning symptom develops. Thank you - Post Discharge Activity
[2018-02-10 19:44] LABS: ALBUMIN 4.2 g/dl (3.4-5.0); ALK PHOS 94 U/L (45-117); ANION GAP 11 MMOL/L (8-16); BILIRUBIN,TOTAL 0.4 mg/dL (0.2-1); BLOOD UREA NITROGEN 15 mg/dL (7-18); CALCIUM 9.1 mg/dL (8.5-10.1); CHLORIDE 105 mmol/L (98-107); CO2 24 mmol/L (21-32); CREATININE 0.8 mg/dL (0.55-1.3); GLUCOSE,RANDOM 93 mg/dL (74-106); POTASSIUM 4.1 mmol/L (3.5-5.1); SGOT/AST 14 U/L (15-37); SGPT/ALT 20 U/L (13-61); SODIUM 140 mmol/L (136-145); TOT PROT 7.7 g/dl (6.4-8.2)
[2018-02-10] MEDS ORDERED: morphine CARPU-JECT 4 MG/1 ML DISP.SYRIN IVPUSH ONE (20:42)
[2018-02-10] MEDS ORDERED: SODIUM CHLORIDE 1,000 ML IV STA (20:42)
[2018-02-10] MEDS ORDERED: FAMOTIDINE 20 MG/50 ML IVPB 20 MG/50 ML MG IVPB ONE ×2 (20:42→20:52)
[2018-02-10] MEDS ORDERED: MORPHINE SULFATE 2 MG/ML VIAL ONE (20:51)
--- NOTE | 2018-02-10 21:44 | PDOC ---
Attending Attestation - [facility] HPI: 02/10/18 22:23 The patient is a 37 year old female, with a significant PMH of fibromyalgia and gastric bypass in 2016 who presents to the emergency department with right upper quadrant pain for the past 4 days. Patient describes the right upper quadrant pain as stabbing in nature, 10/10 in severity, that is exacerbated after food intake and associated with nausea and 2 episodes of non bloody, green colored vomit. Patient states she follows up with GI, cannot recall the name of the doctor. The patient denies chest pain, shortness of breath, headache and dizziness. Denies fever, chills, diarrhea and constipation. Denies dysuria, frequency, urgency and hematuria. Allergies: Contrast Past surgical history: gastric bypass Social history: No reported alcohol, drug or cigarette use. PCP: Dr. Guevara <Garima Bills - Last Filed: 02/10/18 22:36> - Resident Resident Name: Sondra Nathan - ED Attending Attestation I have performed the following: I have examined & evaluated the patient, The case was reviewed & discussed with the resident, I agree w/resident's findings & plan, Exceptions are as noted - HPI HPI: 02/10/18 21:43 37 yo female p/w RUQ pain - Physicial Exam PE: 02/10/18 21:44 wnwd 37 yo female head ncat neck supple, no jvd,no bruits lungs cta b/l cvs [id number] abd RUQ tenderness ext no edema,no deformities no cva tenderness skin warm and dry neuro axox3, no focal neuro deficits psych appropriate - Medical Decision Making 02/10/18 22:37 37 yo female with 3 days of RUQ pain, no fever ct scan abd/pel and abd ultrasound did not show any acute surgical emergencies labs were unremarkable 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
[2018-02-10 23:00] VITALS: BP 110/78; PULSE 88; TEMP 98.3
== END 2018-02-10 23:00 | disposition home or self-care (01) ==
LOC: JER 17:56
PROC: 3E033GC Introduction of Other Therapeutic Substance into Peripheral Vein, Percutaneous Approach (ICD-10-PCS; principal; 2018-02-10)
PROC: 3E033NZ Introduction of Analgesics, Hypnotics, Sedatives into Peripheral Vein, Percutaneous Approach (ICD-10-PCS; 2018-02-10)
PROC: 3E0337Z Introduction of Electrolytic and Water Balance Substance into Peripheral Vein, Percutaneous Approach (ICD-10-PCS; 2018-02-10)
DX: R10.11 Right upper quadrant pain (principal)
CPT/HCPCS: 36415; 74176-TC; 76705-TC; 80053; 81003; 83690; 84703; 85025; 96361; 96365; 96375; 99282-25; J7030

== ENCOUNTER 2018-02-24 19:45 | Emergency (ER) | payer OTHER ==
[2018-02-24 19:57] VITALS: BP 96/66; PULSE 72; TEMP 97.9; BMI 25.7
--- NOTE | 2018-02-24 20:02 | PDOC ---
Rapid Medical Evaluation Chief Complaint: Pain Medical Evaluation: Allergies Allergy/AdvReac Type Severity Reaction Status Date / Time Iodinated Contrast- Oral and Allergy Severe Swelling Verified 02/24/18 19:56 IV Dye [Iodinated Contrast Media - IV Dye] mushroom Allergy Severe Rash Verified 02/24/18 19:56 Vital Signs Temp Pulse Resp BP Pulse Ox 97.9 F 72 18 96/66 99 02/24/18 19:54 02/24/18 19:54 02/24/18 19:54 02/24/18 19:54 02/24/18 19:54 02/24/18 20:01 I have performed a brief in-person evaluation of this patient. The patient presents with a chief complaint of:general malaise and dysuria Pertinent physical exam findings: pale, abd soft/ no rebound or guarding I have ordered the following: urinalysis, UCG The patient will proceed to the ED for further evaluation. 02/24/18 20:18 02/24/18 20:19 Discharge Disposition - Diagnosis Abdominal pain - Referrals Referrals: Santino Guevara [Primary Care Provider] - - Patient Instructions - Post Discharge Activity
[2018-02-24 20:13] LABS: URINE APPEARANCE CLEAR; URINE BILIRUBIN NEGATIVE (<2.0 mg/dL); URINE COLOR YELLOW; URINE GLUCOSE (UA) NEGATIVE (NEGATIVE); URINE KETONE NEGATIVE (NEGATIVE); URINE LEUK ESTERASE NEGATIVE (NEGATIVE); URINE NITRITE NEGATIVE (NEGATIVE); URINE PROTEIN NEGATIVE (NEGATIVE)
[2018-02-24 20:16] LABS: HCG,QUALITATIVE URINE Negative
--- NOTE | 2018-02-24 21:42 | PDOC ---
History of Present Illness - General Chief Complaint: Pain Stated Complaint: BACK PAIN Time Seen by Provider: 02/24/18 20:57 History Source: Patient Exam Limitations: No Limitations - History of Present Illness Initial Comments: 02/24/18 21:27 37 yo female pmh fibromyalgia, gastric bypass in 2016 and recently being seen by psych for anxiety/bipolar presents to the ED with bilateral flank pain. Pt seen in this ED 2 weeks ago for the same complaints but now it is bilateral. Abdomen/pelvis CT and RUQ US normal at that time. Pt describes pain as sharp and radiates to the RUQ, made worse with movement. Admits to 1 episode of NB/NB vomiting yesterday and recent constipation. Pt recently seen by PCP and Pain specialist who prescribes Percocets and tizanadine for pain Denies burning or pain on with urination, cloudy or foul smelling urine, F/C, abdominal pain, cp, SOB. Past History - Past Medical History Allergies/Adverse Reactions: Allergies Allergy/AdvReac Type Severity Reaction Status Date / Time Iodinated Contrast- Oral and Allergy Severe Swelling Verified 02/24/18 19:56 IV Dye [Iodinated Contrast Media - IV Dye] mushroom Allergy Severe Rash Verified 02/24/18 19:56 Home Medications: Ambulatory Orders Gabapentin 100 mg PO HS 03/27/17 Oxycodone HCl/Acetaminophen [Percocet 5-325 mg Tablet] 1 tab PO Q6H PRN Tizanidine HCl [Zanaflex (Nf)] 4 mg PO ASDIR 02/10/18 Anemia: Yes Asthma: Yes Cancer: No Cardiac Disorders: Yes (tachy) CVA: No COPD: No CHF: No Dementia: No Diabetes: ("chronically hypoglycemic") GI Disorders: Yes (GASTRIC REFLUX) Disorders: No HTN: Yes Hypercholesterolemia: No Liver Disease: No Seizures: Yes Thyroid Disease: Yes - Surgical History Abdominal Surgery: No Appendectomy: No Cardiac Surgery: No Cholecystectomy: No GI Surgery: Yes (gastric bypass: 08/22/2015) Lung Surgery: No Neurologic Surgery: No - Reproductive History (#): 6 Para: 3 Tubal Ligation: Yes - Immunization History Td Vaccination: Yes TDAP Vaccination: Yes Immunization Up to Date: Yes - Suicide/Smoking/Psychosocial Hx Smoking Status: Yes Smoking History: Never smoked Have you smoked in the past 12 months: No Number of Cigarettes Smoked Daily: 0 Cigars Per Day: 0 Hx Alcohol Use: No Drug/Substance Use Hx: No Substance Use Type: None Hx Substance Use Treatment: No Review of Systems - Review of Systems Constitutional: No: Chills, Fever Respiratory: No: Shortness of Breath Cardiac (ROS): No: Chest Pain, Edema ABD/GI: Yes: Vomiting (1 episode yesterday) : Yes: Frequency, Flank Pain (bilateral). No: Burning, Dysuria Psychiatric: Yes: Anxiety *Physical Exam - Vital Signs Last Vital Signs Temp Pulse Resp BP Pulse Ox 97.9 F 72 18 96/66 99 02/24/18 19:54 02/24/18 19:54 02/24/18 19:54 02/24/18 19:54 02/24/18 19:54 - Physical Exam General Appearance: Yes: Nourished, Appropriately Dressed. No: Apparent Distress HEENT: positive: EOMI Respiratory/Chest: positive: Lungs Clear, Normal Breath Sounds Cardiovascular: positive: Regular Rhythm, Regular Rate, S1, S2. negative: Edema , JVD, Murmur Vascular Pulses: Dorsalis-Pedis (R): 4+, Doralis-Pedis (L): 4+ Gastrointestinal/Abdominal: positive: Normal Bowel Sounds, Flat, Soft, Tenderness (distractable RUQ). negative: Pulsatile Mass, Distended, Guarding, Rebound Musculoskeletal: negative: CVA Tenderness Integumentary: positive: Normal Color, Dry, Warm Neurologic: positive: Fully Oriented, Alert, Normal Mood/Affect, Normal Response Moderate Sedation - Procedure Monitoring Vital Signs: Procedure Monitoring Vital Signs Temperature 97.9 F 02/24/18 19:54 Pulse Rate 72 02/24/18 19:54 Respiratory Rate 18 02/24/18 19:54 Blood Pressure 96/66 02/24/18 19:54 O2 Sat by Pulse Oximetry (%) 99 02/24/18 19:54 ED Treatment Course - LABORATORY CBC & Chemistry Diagram: 02/24/18 21:52 - ADDITIONAL ORDERS Additional order review: Laboratory Results 02/24/18 20:08 Urine Color Yellow Urine Appearance Clear Urine pH 6.0 Ur Specific [place] 1.025 Urine Protein Negative Urine Glucose (UA) Negative Urine Ketones Negative Urine Blood Negative Urine Nitrite Negative Urine Bilirubin Negative Urine Urobilinogen 2.0 H Ur Leukocyte Esterase Negative Urine HCG, Qual Negative Medical Decision Making - Medical Decision Making 02/24/18 22:40 37 yo female pmh fibromyalgia and recent ED visit with similar complaints ( negative Abdomen/Pelvis CT and RUQ US) presents for bilateral flank pain. Vitals: WNL DDX includes but is not limited to: Nephrolithiasis (no blood in UA) gall stone (negative recent RUQ US) Muscle strain, fibromyalgia Discussed options with pt regarding recent negative findings and radiation burden if more scans were done today along with the fact that any scan would be unlikely to find a source of her pain. Pt understands and is agreeable with plan to check UA and CMP with MG (pt adamant that she had low mg in the past that caused pain and therefore would like it checked today.) 02/24/18 22:59 Mg normal and pt resting comfortably in bed, able to ambulate and fulfill all ADLs Will DC the pt with PCP follow up and discussion with Pain specialist. Patient should continue taking home dosed medications as prescribed. strict return precautions given *DC/Admit/Observation/Transfer Diagnosis at time of Disposition: Abdominal pain Qualifiers: Abdominal location: unspecified location Qualified Code(s): R10.9 - Unspecified abdominal pain - Discharge Dispostion Disposition: HOME Condition at time of disposition: Stable Decision to Admit order: No - Referrals Referrals: Santino Guevara [Primary Care Provider] - - Patient Instructions Printed Discharge Instructions: DI for Abdominal Pain-Adult Additional Instructions: Please make appointment with your Primary Care Provider and Pain specialist within the next 24-48 hours. Continue taking your medications as prescribed by your Physicians Return to the [facility] for new or concerning symptoms including but not limited to: high fevers, severe abdominal pain, inability to have bowel movements, pain with urination or generalized weakness. Thank you - Post Discharge Activity
--- NOTE | 2018-02-24 22:34 | PDOC ---
Attending Attestation - HPI HPI: 02/24/18 22:34 The patient is a 37 year old female, with a significant past medical history of fibromyalgia and gastric bypass (2016), who presents to the emergency department with worsening bilateral flank pain. The patient was most recently seen in this emergency department on 02/10/2018 with similar complaints. She describes the flank pain as sharp and notes that the flank pain on the right does radiate around to the front. She reports one episode of nonbilious nonbloody emesis yesterday but no episodes since then. She denies fever, chills , headache, shortness of breath or chest pain. Allergies: Iodinated Contrast Past surgical history: Gastric Bypass (2016). Social history: Non-smoker. Denies alcohol or drug use. PCP: Dr. Guevara Documentation prepared by Florinda Kumar, acting as medical support specialist for Antoinette Schmitz MD. - Physicial Exam PE: 02/24/18 22:34 GENERAL: Awake, alert, and fully oriented, in no acute distress. HEAD: No signs of trauma. EYES: PERRLA, EOMI, sclera anicteric, conjunctiva clear. ENT: Auricles normal inspection, hearing grossly normal, nares patent, oropharynx clear without exudates. Moist mucosa. NECK: Normal ROM, supple, no lymphadenopathy, JVD, or masses. LUNGS: Breath sounds equal, clear to auscultation bilaterally. No wheezes, and no crackles. HEART: Regular rate and rhythm, normal S1 and S2, no murmurs, rubs or gallops. ABDOMEN: Soft, nontender, normoactive bowel sounds. No guarding, no rebound. No masses. EXTREMITIES: Normal range of motion, no edema. No clubbing or cyanosis. No cords , erythema, or tenderness. NEUROLOGICAL: Cranial nerves II through XII intact. Normal speech, normal gait. SKIN: Warm, dry, normal turgor, no rashes or lesions noted. Documentation prepared by Florinda Kumar, acting as medical support specialist for Antoinette Schmitz MD. <Florinda Castellanos - Last Filed: 02/24/18 22:37> - Resident Resident Name: Bandar Pacheco (]) - ED Attending Attestation I have performed the following: I have examined & evaluated the patient, The case was reviewed & discussed with the resident, I agree w/resident's findings & plan, Exceptions are as noted - Medical Decision Making 02/25/18 00:10 37 yo female p/w multiple complaints which include chronic epigastric and flank pain,fibromylagia with diffuse muscle soreness,insomnia, anxiety and depression SHe feels that her magnesium maybe low -she had a benign physicial exam normal vital signs normal magnesium and labs abd she was discharged to continue her care with her GI doctor, pain doctor, her tester electronic scale and psychiatrist <Antoinette Schmitz - Last Filed: 02/25/18 00:26>
[2018-02-24 22:58] LABS: ALBUMIN 3.8 g/dl (3.4-5.0); ALK PHOS 86 U/L (45-117); ANION GAP 5 MMOL/L (8-16); BILIRUBIN,TOTAL 0.3 mg/dL (0.2-1); BLOOD UREA NITROGEN 15 mg/dL (7-18); CALCIUM 8.5 mg/dL (8.5-10.1); CHLORIDE 105 mmol/L (98-107); CO2 27 mmol/L (21-32); CREATININE 0.8 mg/dL (0.55-1.3); GLUCOSE,RANDOM 74 mg/dL (74-106); MAGNESIUM 2.2 mg/dL (1.8-2.4); POTASSIUM 4.5 mmol/L (3.5-5.1); SGOT/AST 13 U/L (15-37); SGPT/ALT 18 U/L (13-61); SODIUM 137 mmol/L (136-145)
== END 2018-02-25 00:10 | disposition home or self-care (01) ==
LOC: JER 19:45
DX: R10.9 Unspecified abdominal pain (principal); M79.7 Fibromyalgia; I10 Essential (primary) hypertension; Z98.84 Bariatric surgery status; R00.0 Tachycardia, unspecified; E07.9 Disorder of thyroid, unspecified; R56.9 Unspecified convulsions; E16.2 Hypoglycemia, unspecified
CPT/HCPCS: 36415; 80053; 81003; 83735; 84703; 99281-25

== ENCOUNTER 2018-07-08 16:42 | Emergency (ER) | payer OTHER ==
--- NOTE | 2018-07-08 16:56 | PDOC ---
Rapid Medical Evaluation Chief Complaint: Pain Time Seen by Provider: 07/08/18 16:52 Medical Evaluation: Allergies Allergy/AdvReac Type Severity Reaction Status Date / Time Iodinated Contrast- Oral and Allergy Severe Swelling Verified 02/24/18 19:56 IV Dye [Iodinated Contrast Media - IV Dye] mushroom Allergy Severe Rash Verified 02/24/18 19:56 07/08/18 16:54 I have performed a brief in person evaluation at triage on this patient. CC: Pain HPI: Pt is a 38 YO female who states that her pain management provider ordered cervical spine and lumbar spine xrays and she states they informed her, "I might have a fracture." Pt takes Percocet, Lyrica and Zanaflex for her pain. She denies injury or trauma. PE: Skin: clear Lungs: clear Heart: RRR MS: Moves all extremities without difficulty Neuro: Alert and oriented Psych: Appropriate affect Pt will proceed to [facility] for further evaluation. Discharge Disposition - Diagnosis Pain - Referrals - Patient Instructions - Post Discharge Activity
[2018-07-08 16:57] VITALS: BP 107/68; PULSE 82; TEMP 98; BMI 26.2
--- NOTE | 2018-07-08 17:28 | PDOC ---
History of Present Illness - General Chief Complaint: Pain Stated Complaint: SENT BY PCP Time Seen by Provider: 07/08/18 16:52 - History of Present Illness Initial Comments: 07/08/18 17:26 38-year-old female with a past medical history significant for chronic pain of the neck and back without radicular symptoms presents for evaluation from her pain management doctor to rule out a fracture of her cervical and lumbar spine. She did have an MRI done earlier this month however those results are not available and the facility where she had the MRI done does not want to fax her results to the hospital. She has no systemic symptoms loss of bowel bladder function saddle paresthesias or radicular symptoms. Past History - Past Medical History Allergies/Adverse Reactions: Allergies Allergy/AdvReac Type Severity Reaction Status Date / Time Iodinated Contrast- Oral and Allergy Severe Swelling Verified 07/08/18 16:53 IV Dye [Iodinated Contrast Media - IV Dye] mushroom Allergy Severe Rash Verified 07/08/18 16:53 Home Medications: Ambulatory Orders Gabapentin 100 mg PO HS 03/27/17 Oxycodone HCl/Acetaminophen [Percocet 5-325 mg Tablet] 1 tab PO Q6H PRN Tizanidine HCl [Zanaflex (Nf)] 4 mg PO ASDIR 02/10/18 Anemia: Yes Asthma: Yes Cancer: No Cardiac Disorders: Yes (tachy) CVA: No COPD: No CHF: No Dementia: No Diabetes: ("chronically hypoglycemic") GI Disorders: Yes (GASTRIC REFLUX) Disorders: No HTN: Yes Hypercholesterolemia: No Liver Disease: No Seizures: Yes Thyroid Disease: Yes - Surgical History Abdominal Surgery: No Appendectomy: No Cardiac Surgery: No Cholecystectomy: No GI Surgery: Yes (gastric bypass: 08/22/2015) Lung Surgery: No Neurologic Surgery: No - Reproductive History (#): 6 Para: 3 Tubal Ligation: Yes - Immunization History Td Vaccination: Yes TDAP Vaccination: Yes Immunization Up to Date: Yes - Suicide/Smoking/Psychosocial Hx Smoking Status: Yes Smoking History: Never smoked Have you smoked in the past 12 months: No Number of Cigarettes Smoked Daily: 0 Cigars Per Day: 0 Hx Alcohol Use: No Drug/Substance Use Hx: No Substance Use Type: None Hx Substance Use Treatment: No Review of Systems - Review of Systems Constitutional: No: Fever : No: Incontinence Musculoskeletal: Yes: Back Pain, Neck Pain *Physical Exam - Vital Signs Last Vital Signs Temp Pulse Resp BP Pulse Ox 98.0 F 82 16 107/68 100 07/08/18 16:55 07/08/18 16:55 07/08/18 16:55 07/08/18 16:55 07/08/18 16:55 - Physical Exam Comments: 07/08/18 17:27 Cervical spine skin color and temperature are normal. Decreased range of motion mild bilateral paracervical musculature spasm and tenderness. 5 out of 5 strength bilateral upper extremities without gross sensorimotor deficits neurovascularly intact. Lumbar spine skin color and temperature are normal. Mild right and left paralumbar musculature spasm and tenderness 5 out of 5 lower extremity strength no gross sensorimotor deficits neurovascularly intact. ED Treatment Course - RADIOLOGY Radiology Studies Ordered: Category Date Time Status CERVICAL SPINE CT W/O CONTR [CT] Stat CT Scan 07/08/18 17:[address] W/O CONTRAST [CT] Stat CT Scan 07/08/18 17:23 Ordered Medical Decision Making - Medical Decision Making 07/08/18 17:27 CT ordered to rule out fracture of the cervical and lumbar spine. Rash this patient has had increased neck and back pain over the last week. I am unsure of her underlying pathology. 07/08/18 20:42 Radiology called several times, pt eloped prior to results of CT scans *DC/Admit/Observation/Transfer Diagnosis at time of Disposition: Pain, Neck pain, Chronic lower back pain - Discharge Dispostion Disposition: ELOPED - Referrals - Patient Instructions - Post Discharge Activity
== END 2018-07-08 20:44 | disposition left against medical advice (07) ==
LOC: JERFT 16:42
DX: M62.830 Muscle spasm of back (principal); M54.2 Cervicalgia; M54.5 Low back pain; G89.29 Other chronic pain; I10 Essential (primary) hypertension; K21.9 Gastro-esophageal reflux disease without esophagitis; Z86.2 Personal history of diseases of the blood and blood-forming organs and certain disorders involving the immune mechanism; Z87.09 Personal history of other diseases of the respiratory system
CPT/HCPCS: 72125-TC; 72131-TC; 99281-25

== ENCOUNTER 2018-09-26 17:41 | Emergency (ER) | payer OTHER ==
[2018-09-26 17:55] VITALS: BP 117/71; PULSE 78; TEMP 98.2; BMI 25.8
--- NOTE | 2018-09-26 17:55 | PDOC ---
Rapid Medical Evaluation Chief Complaint: Pain, Acute Time Seen by Provider: 09/26/18 17:52 Medical Evaluation: Allergies Allergy/AdvReac Type Severity Reaction Status Date / Time Iodinated Contrast- Oral and Allergy Severe Swelling Verified 09/26/18 17:52 IV Dye [Iodinated Contrast Media - IV Dye] mushroom Allergy Severe Rash Verified 09/26/18 17:52 09/26/18 17:53 I have performed a brief in-person evaluation of this patient. The patient presents with a chief complaint of: lower abd pain w/ nausea/ vomiting. H/o fibromyalgia, gastric bypass, anxiety, ? bipolar Pertinent physical exam findings:stable but appears anxious I have ordered the following:labs/ua The patient will proceed to the ED for further evaluation. Discharge Disposition - Diagnosis Abdominal pain Qualifiers: Abdominal location: unspecified location Qualified Code(s): R10.9 - Unspecified abdominal pain - Referrals - Patient Instructions - Post Discharge Activity
--- NOTE | 2018-09-26 19:08 | PDOC ---
History of Present Illness - General Chief Complaint: Pain, Acute Stated Complaint: ABD PAIN Time Seen by Provider: 09/26/18 17:52 - History of Present Illness Initial Comments: 09/26/18 19:01 CHIEF COMPLAINT: LLQ pain HISTORY OF PRESENT ILLNESS: 38 yo F with hx of fibromyalgia, s/p tubal ligation 2007 presents to ED with LLQ pain x 1 week. LMP was last week and the pain started during the period so she thought the pain was from menstruation. Patient states she was given "hormonal medicine by a doctor in [facility]" because my boyfriend and I are trying to have a baby again. Patient reports that "something feels heavy and feels like it wants to come out of my vagina or like my ovary is about to explode or something." Patient denies any vaginal bleeding or discharge. Patient c/o of nausea and states she vomited once today. No recent travel or sick contacts. PAST MEDICAL HISTORY: fibromyalgia FAMILY HISTORY: Denies SOCIAL HISTORY: Denies tobacco, alcohol, illicit drug use. SURGICAL HISTORY: tubal ligation 2007, "uterus ablation" in 2011, gastric bypass 2015 ALLERGIES: iodine, mushroom REVIEW OF SYSTEMS General/Constitutional: Denies fever or chills. Denies weakness, weight change. HEENT: Denies change in vision. Denies ear pain or discharge. Denies sore throat. Cardiovascular: Denies chest pain or shortness of breath. Respiratory: Denies cough, wheezing, or hemoptysis. Gastrointestinal: Nausea, vomiting. Denies diarrhea, constipation. Denies rectal bleeding. Genitourinary: Denies dysuria, frequency, or change in urination. Musculoskeletal: Denies joint or muscle swelling or pain. Denies neck or back pain. Skin: Denies rash or easy bruising. Neurologic: Denies headache, vertigo, loss of consciousness, or loss of sensation. PHYSICAL EXAM General Appearance: Well-appearing, appropriately dressed. No apparent distress , no intoxication. HEENT: EOMI, PERRLA, normal ENT inspection, normal voice, TMs normal, pharynx normal. No conjunctival pallor. No photophobia, scleral icterus. Neck: Supple. Trachea midline. No tenderness, rigidity, carotid bruit, stridor , lymphadenopathy, or thyromegaly. Respiratory/Chest: Lungs CTAB. No shortness of breath, chest tenderness, respiratory distress, accessory muscle use. No crackles, rales, rhonchi, stridor , wheezing, dullness Cardiovascular: RRR. S1, S2. No JVD, murmur, bradycardia, tachycardia. Vascular Pulses: Dorsalis-Pedis (R): 2+, Dorsalis-Pedis (L): 2+ Gastrointestinal/Abdominal: Marked LLQ vs L pelvic tenderness. Normal bowel sounds. Abdomen soft, non-distended. No tenderness or rebound tenderness. No organomegaly, pulsatile mass, guarding, hernia, hepatomegaly, splenomegaly. Lymphatic: No adenopathy, tenderness. Musculoskeletal/Extremities: Normal inspection. FROM of all extremities, normal capillary refill. Pelvis Stable. No CVA tenderness. No tenderness to extremities, pedal edema, swelling, erythema or deformity. Integumentary: Appropriate color, dry, warm. No cyanosis, erythema, jaundice or rash Neurologic: body and fender mechanic II-XII intact. Fully oriented, alert. Appropriate mood/affect. Motor strength 5/5. No appreciable EOM palsy, facial droop or sensory deficit. Past History - Past Medical History Allergies/Adverse Reactions: Allergies Allergy/AdvReac Type Severity Reaction Status Date / Time Iodinated Contrast- Oral and Allergy Severe Swelling Verified 09/26/18 17:52 IV Dye [Iodinated Contrast Media - IV Dye] mushroom Allergy Severe Rash Verified 09/26/18 17:52 Home Medications: Ambulatory Orders Gabapentin 100 mg PO HS 03/27/17 Oxycodone HCl/Acetaminophen [Percocet 5-325 mg Tablet] 1 tab PO Q6H PRN Tizanidine HCl [Zanaflex (Nf)] 4 mg PO ASDIR 02/10/18 Anemia: Yes Asthma: Yes Cancer: No Cardiac Disorders: Yes (tachy) CVA: No COPD: No CHF: No Dementia: No Diabetes: ("chronically hypoglycemic") GI Disorders: Yes (GASTRIC REFLUX) Disorders: No HTN: Yes Hypercholesterolemia: No Liver Disease: No Seizures: Yes Thyroid Disease: Yes - Surgical History Abdominal Surgery: No Appendectomy: No Cardiac Surgery: No Cholecystectomy: No GI Surgery: Yes (gastric bypass: 08/22/2015) Lung Surgery: No Neurologic Surgery: No - Reproductive History (#): 6 Para: 3 Tubal Ligation: Yes - Immunization History Td Vaccination: Yes TDAP Vaccination: Yes Immunization Up to Date: Yes - Suicide/Smoking/Psychosocial Hx Smoking Status: Yes Smoking History: Never smoked Have you smoked in the past 12 months: No Number of Cigarettes Smoked Daily: 0 Cigars Per Day: 0 Hx Alcohol Use: No Drug/Substance Use Hx: No Substance Use Type: None Hx Substance Use Treatment: No *Physical Exam - Vital Signs Last Vital Signs Temp Pulse Resp BP Pulse Ox 98.2 F 78 18 117/71 98 09/26/18 17:52 09/26/18 17:52 09/26/18 17:52 09/26/18 17:52 09/26/18 17:52 ED Treatment Course - RADIOLOGY Radiology Studies Ordered: Category Date Time Status TRANSVAGINAL ULTRASOUND US [US] Stat Ultrasound 09/26/18 18:59 Ordered Medical Decision Making - Medical Decision Making 09/26/18 19:08 38 yo F with hx of fibromyalgia, s/p tubal ligation 2007 presents to ED with LLQ pain x 1 week. -labs, UA, Upreg -TVUS 09/28/18 01:26 Pt eloped. *DC/Admit/Observation/Transfer Diagnosis at time of Disposition: Abdominal pain Qualifiers: Abdominal location: unspecified location Qualified Code(s): R10.9 - Unspecified abdominal pain - Discharge Dispostion Disposition: ELOPED - Referrals - Patient Instructions - Post Discharge Activity
== END 2018-09-26 20:14 | disposition left against medical advice (07) ==
LOC: JER 17:41
DX: R10.9 Unspecified abdominal pain (principal); I10 Essential (primary) hypertension; M79.7 Fibromyalgia; Z87.09 Personal history of other diseases of the respiratory system; Z87.19 Personal history of other diseases of the digestive system; Z98.84 Bariatric surgery status
CPT/HCPCS: 99282-25

== ENCOUNTER → 2018-11-05 | Outpatient (CLI) | payer OTHER | LOC: YHH 15:38 ==

== ENCOUNTER 2018-12-17 09:40 | Emergency (ER) | payer OTHER ==
[2018-12-17 09:47] VITALS: BP 100/58; PULSE 75; TEMP 98.5; BMI 27.2
[2018-12-17] MEDS ORDERED: KETOROLAC TROMETHAMINE 30 MG/1 ML VIAL IM ONE (10:15)
[2018-12-17] MEDS ORDERED: KETOROLAC TROMETHAMINE 30 MG/1 ML VIAL ONE (10:19)
--- NOTE | 2018-12-17 11:06 | PDOC ---
History of Present Illness - General Chief Complaint: Injury Stated Complaint: FALL / BACK PAIN Time Seen by Provider: 12/17/18 10:07 - History of Present Illness Initial Comments: 12/17/18 11:06 CHIEF COMPLAINT: fall HISTORY OF PRESENT ILLNESS: 38 yo F with hx of fibromyalgia and tuba ligation presents to fast track s/p fall. Patient states she was walking down steps and her shoe got caught on a nail that tripped her. Patient states she did not fall to the ground but caught herself on the railing with her right arm. She c/ o of pain to her right shoulder. No recent travel or sick contacts. PAST MEDICAL HISTORY: Denies past medical history FAMILY HISTORY: Denies SOCIAL HISTORY: Denies tobacco, alcohol, illicit drug use. SURGICAL HISTORY: Denies ALLERGIES: contrast, mushroom REVIEW OF SYSTEMS General/Constitutional: Denies fever or chills. Denies weakness, weight change. HEENT: Denies change in vision. Denies ear pain or discharge. Denies sore throat. Cardiovascular: Denies chest pain or shortness of breath. Respiratory: Denies cough, wheezing, or hemoptysis. Gastrointestinal: Denies nausea, vomiting, diarrhea or constipation. Denies rectal bleeding. Genitourinary: Denies dysuria, frequency, or change in urination. Musculoskeletal: R shoulder pain and knee pain. Skin and breasts: Denies rash or easy bruising. Neurologic: Denies headache, vertigo, loss of consciousness, or loss of sensation. Psychiatric: Denies depression or anxiety. PHYSICAL EXAM General Appearance: Well-appearing, appropriately dressed. No apparent distress , no intoxication. HEENT: EOMI, PERRLA, normal ENT inspection, normal voice, TMs normal, pharynx normal. No conjunctival pallor. No photophobia, scleral icterus. Neck: Supple. Trachea midline. No tenderness, rigidity, carotid bruit, stridor , lymphadenopathy, or thyromegaly. Respiratory/Chest: Lungs CTAB. No shortness of breath, chest tenderness, respiratory distress, accessory muscle use. No crackles, rales, rhonchi, stridor , wheezing, dullness Cardiovascular: RRR. S1, S2. No JVD, murmur, bradycardia, tachycardia. Vascular Pulses: Dorsalis-Pedis (R): 2+, Dorsalis-Pedis (L): 2+ Gastrointestinal/Abdominal: Normal bowel sounds. Abdomen soft, non-distended. No tenderness or rebound tenderness. No organomegaly, pulsatile mass, guarding , hernia, hepatomegaly, splenomegaly. Lymphatic: No adenopathy, tenderness. Musculoskeletal/Extremities: +Neer/Hewitt test to R shoulder. No midline spine tenderness. Normal inspection. FROM of all extremities, normal capillary refill. Pelvis Stable. No CVA tenderness. No tenderness to extremities, pedal edema, swelling, erythema or deformity. Integumentary: Appropriate color, dry, warm. No cyanosis, erythema, jaundice or rash Neurologic: gear lapper II-XII intact. Fully oriented, alert. Appropriate mood/affect. Motor strength 5/5. No appreciable EOM palsy, facial droop or sensory deficit. 12/17/18 11:26 Past History - Past Medical History Allergies/Adverse Reactions: Allergies Allergy/AdvReac Type Severity Reaction Status Date / Time Iodinated Contrast Media Allergy Severe Swelling Verified 12/17/18 09:48 [Iodinated Contrast Media - IV Dye] mushroom Allergy Severe Rash Verified 12/17/18 09:48 Home Medications: Ambulatory Orders Gabapentin 100 mg PO HS 03/27/17 Oxycodone HCl/Acetaminophen [Percocet 5-325 mg Tablet] 1 tab PO Q6H PRN Tizanidine HCl [Zanaflex (Nf)] 4 mg PO ASDIR 02/10/18 Anemia: Yes Asthma: Yes Cancer: No Cardiac Disorders: Yes (tachy) CVA: No COPD: No CHF: No Dementia: No Diabetes: ("chronically hypoglycemic") GI Disorders: Yes (GASTRIC REFLUX) Disorders: No HTN: Yes Hypercholesterolemia: No Liver Disease: No Seizures: Yes Thyroid Disease: Yes Other medical history: FIBROMIALGIA - Surgical History Abdominal Surgery: No Appendectomy: No Cardiac Surgery: No Cholecystectomy: No GI Surgery: Yes (gastric bypass: 08/22/2015) Lung Surgery: No Neurologic Surgery: No - Reproductive History (#): 6 Para: 3 Tubal Ligation: Yes - Immunization History Td Vaccination: Yes TDAP Vaccination: Yes Immunization Up to Date: Yes - Psycho Social/Smoking Cessation Hx Smoking Status: Yes Smoking History: Never smoked Have you smoked in the past 12 months: No Number of Cigarettes Smoked Daily: 0 Cigars Per Day: 0 Hx Alcohol Use: No Drug/Substance Use Hx: No Substance Use Type: None Hx Substance Use Treatment: No *Physical Exam - Vital Signs Last Vital Signs Temp Pulse Resp BP Pulse Ox 98.5 F 75 16 100/58 L 100 12/17/18 09:44 12/17/18 09:44 12/17/18 09:44 10 09:44 12/17/18 09:44 ED Treatment Course - RADIOLOGY Radiology Studies Ordered: Category Date Time Status SHOULDER-RIGHT [RAD] Stat Radiology 12/17/18 10:15 Ordered - Medications Given in the ED: ED Medications Discontinued Medications Generic Name Dose Route Start Last Admin Trade Name Freq PRN Reason Stop Dose Admin Ketorolac Tromethamine 30 mg 12/17/18 10:15 12/17/18 10:25 Toradol Injection - IM 12/17/18 10:16 30 mg ONCE ONE Administration Medical Decision Making - Medical Decision Making 12/17/18 11:18 38 yo F with hx of fibromyalgia presents to fast track s/p fall. Patient is s/p tubal ligation. -toradol IM -shoulder x-ray 12/17/18 11:20 Patient has a hx of chronic neck and back pain and is persistently c/o of pain today. Will refer to pain management. Discharge - Discharge Information Problems reviewed: Yes Clinical Impression/Diagnosis: Muscle spasm Fall Qualifiers: Encounter type: initial encounter Qualified Code(s): W19.XXXA - Unspecified fall, initial encounter Shoulder pain, right Qualifiers: Chronicity: chronic Qualified Code(s): M25.511 - Pain in right shoulder; G89.29 - Other chronic pain Condition: Stable Disposition: HOME - Admission No - Follow up/Referral Referrals: Adam Malone [Primary Care Provider] - Viraj Palacios MD [Staff Physician] - - Patient Discharge Instructions Patient Printed Discharge Instructions: DI for Muscle Strain, DI for Shoulder Pain Additional Instructions: Please take medications as prescribed. Follow up with pain management for continued management of your chronic pain. If you develop any new or worsening symptoms, please return to the ER. - Post Discharge Activity
== END 2018-12-17 11:42 | disposition home or self-care (01) ==
LOC: JERFT 09:40
PROC: 3E0233Z Introduction of Anti-inflammatory into Muscle, Percutaneous Approach (ICD-10-PCS; principal; 2018-12-17)
DX: M62.838 Other muscle spasm (principal); M25.511 Pain in right shoulder; G89.29 Other chronic pain; W10.9XXA Fall (on) (from) unspecified stairs and steps, initial encounter; Y93.89 Activity, other specified; Y92.89 Other specified places as the place of occurrence of the external cause; Z91.041 Radiographic dye allergy status; J45.909 Unspecified asthma, uncomplicated; D64.9 Anemia, unspecified; R00.0 Tachycardia, unspecified; M79.7 Fibromyalgia; R56.9 Unspecified convulsions; K21.9 Gastro-esophageal reflux disease without esophagitis; I10 Essential (primary) hypertension; Z91.018 Allergy to other foods
CPT/HCPCS: 73030-TC-RT-FY; 96372; 99281-25

== ENCOUNTER 2018-12-26 14:04 | Emergency (ER) | payer OTHER ==
--- NOTE | 2018-12-26 14:09 | PDOC ---
Rapid Medical Evaluation Medical Evaluation: Allergies Allergy/AdvReac Type Severity Reaction Status Date / Time Iodinated Contrast Media Allergy Severe Swelling Verified 12/17/18 09:48 [Iodinated Contrast Media - IV Dye] mushroom Allergy Severe Rash Verified 12/17/18 09:48 12/26/18 14:07 I have performed a brief in-person evaluation of this patient. The patient presents with a chief complaint of: worsening back and neck pain s/ p fall on the . H/o fibromyalgia, ran out of her percocet. Pt sees pain management and has an appointment Saturday. Also c/o mild lightheadedness. The patient will proceed to the ED for further evaluation. 12/26/18 14:12 Discharge Disposition - Diagnosis Chronic lower back pain - Referrals Referrals: Adam Malone [Primary Care Provider] - - Patient Instructions - Post Discharge Activity
[2018-12-26 14:34] VITALS: TEMP 98.1; BMI 25.8
--- NOTE | 2018-12-26 14:53 | PDOC ---
History of Present Illness - General Chief Complaint: Lightheaded Stated Complaint: CVA/TIA Time Seen by Provider: 12/26/18 14:10 History Source: Patient Exam Limitations: No Limitations - History of Present Illness Initial Comments: 12/26/18 14:53 Susan Mendosa is a 38F with PMH fibromyalgia, gastric bypass, , tubal ligation presenting with worsening lower back pain after a fall 9 days ago. Patient has history of fibromyalgia manifesting as chronic lower back and neck pain. Tripped on a nail on a narrow staircase 9 days ago, fell forward and landed on her R side, no head injury or LOC. Presented to [facility] ED, got a Toradol shot and sent home with PMD f/u. Patient states that pain has developed in R lower back that is worse than her normal fibromyalgia, difficulty walking with shooting pain down R leg. Denies numbness/tingling, bowel/bladder retention , able to ambulate with difficulty. Sees pain management Dr. Thakur, apparently her 90 count prescription for Percocet was decreased to 60 count last month without a discussion about tapering, so she ran out earlier this month, increased use due to lower back pain. Has sharp pulsing SORIA to back of head with pressure behind eyes consistent with previous migraines but worse, gets better with conservative management. NKDA PSH: gastric bypass, c-sections x2, tubal ligation Allergy to tape and contrast, causes lichen planus/skin breakdown rash Past History - Past Medical History Allergies/Adverse Reactions: Allergies Allergy/AdvReac Type Severity Reaction Status Date / Time Iodinated Contrast Media Allergy Severe Swelling Verified 12/26/18 14:11 [Iodinated Contrast Media - IV Dye] mushroom Allergy Severe Rash Verified 12/26/18 14:11 Home Medications: Ambulatory Orders Gabapentin 100 mg PO HS 03/27/17 Oxycodone HCl/Acetaminophen [Percocet 5-325 mg Tablet] 1 tab PO Q6H PRN Tizanidine HCl [Zanaflex (Nf)] 4 mg PO ASDIR 02/10/18 Ibuprofen 600 mg PO TID PRN #15 tablet 12/26/18 Anemia: Yes Asthma: Yes Cancer: No Cardiac Disorders: Yes (tachy) CVA: No COPD: No CHF: No Dementia: No Diabetes: ("chronically hypoglycemic") GI Disorders: Yes (GASTRIC REFLUX) Disorders: No HTN: Yes Hypercholesterolemia: No Liver Disease: No Seizures: Yes Thyroid Disease: Yes Other medical history: fibromyasia - Surgical History Abdominal Surgery: No Appendectomy: No Cardiac Surgery: No Cholecystectomy: No GI Surgery: Yes (gastric bypass: 08/22/2015) Lung Surgery: No Neurologic Surgery: No - Reproductive History (#): 6 Para: 3 Tubal Ligation: Yes - Immunization History Td Vaccination: Yes TDAP Vaccination: Yes Immunization Up to Date: Yes - Psycho Social/Smoking Cessation Hx Smoking Status: Yes Smoking History: Never smoked Have you smoked in the past 12 months: No Number of Cigarettes Smoked Daily: 0 Cigars Per Day: 0 Hx Alcohol Use: No Drug/Substance Use Hx: No Substance Use Type: None Hx Substance Use Treatment: No Review of Systems - Review of Systems Constitutional: Yes: Weight Stable. No: Chills, Fever, Loss of Appetite, Malaise, Weakness HEENTM: No: Blurred Vision, Hearing Loss, Difficulty Swallowing, Mouth Swelling Respiratory: No: Cough, Shortness of Breath, SOB at Rest Cardiac (ROS): No: Chest Pain, Irregular Heart Rate, Lightheadedness, Palpitations ABD/GI: No: Constipated, Diarrhea, Nausea, Vomiting : No: Burning, Dysuria, Discharge, Frequency, Flank Pain, Hematuria, Incontinence Musculoskeletal: Yes: Back Pain, Joint Pain, Muscle Pain, Neck Pain Integumentary: No: Symptoms Reported Neurological: Yes: Headache. No: Numbness, Paresthesia, Tremors, Weakness, Unsteady Gait Endocrine: No: Symptoms Reported Hematologic/Lymphatic: No: Symptoms Reported All Other Systems: Reviewed and Negative *Physical Exam - Vital Signs Last Vital Signs Temp Pulse Resp BP Pulse Ox 98.1 F 82 16 114/68 98 12/26/18 14:06 12/26/18 14:06 12/26/18 14:06 12/26/18 14:06 12/26/18 14:06 - Physical Exam General Appearance: Yes: Nourished, Appropriately Dressed, Mild Distress HEENT: positive: EOMI, JOSE, Normal ENT Inspection, Normal Voice, Symmetrical, Pharynx Normal, Hearing Grossly Normal. negative: Scleral Icterus (R), Scleral Icterus (L), Pharyngeal Erythema, Tonsillar Exudate, Tonsillar Erythema Neck: positive: Tender (R posterior neck, no midline tenderness), Trachea midline, Normal Thyroid, Supple. negative: Lymphadenopathy (R), Lymphadenopathy (L) Respiratory/Chest: positive: Lungs Clear, Normal Breath Sounds, Accessory Muscle Use. negative: Chest Tender, Respiratory Distress, Crackles, Rales, Rhonchi Cardiovascular: positive: Regular Rhythm, Regular Rate. negative: Murmur Gastrointestinal/Abdominal: positive: Normal Bowel Sounds, Tender (RUQ), Soft. negative: Organomegaly Musculoskeletal: positive: Normal Inspection, Decreased Range of Motion, Muscle Spasm (R sided spasm notable, L normal). negative: Vertebral Tenderness Extremity: positive: Normal Capillary Refill, Normal Inspection, Other (postive straight leg raise R side). negative: Normal Range of Motion (pain limited), Tender Integumentary: positive: Normal Color, Dry, Warm. negative: Pale, Cold, Clammy Neurologic: positive: Fully Oriented, Alert, Normal Mood/Affect, Normal Response , Motor Strength 5/5, Other (able to stand and walk, difficulty walking but can walk unassisted) Medical Decision Making - Medical Decision Making 12/26/18 14:53 Susan Mendosa is a 38F with PMH fibromyalgia, gastric bypass, , tubal ligation presenting with worsening lower back pain after a fall 9 days ago. Patient presentation concerning for lumbar spine pain and gait difficulty in the context of fall. On exam, abd pain and back pain are reproducible, and back exam notable for muscle spasm. Low concern for lumbar spinal fracture, no saddle anesthesia or numbness, +straight leg raise consistent with sciatica, no prior lumbar imaging from fall 9 days ago. Will get urine test, then give 15mg Toradol for pain. XR lumbar spine for worsening back pain. 12/26/18 16:22 Trigger point 1% lidocaine injection performed with 12cc lidocaine, back feels better 10 minutes after. Will get XR back and give 15mg Toradol, then dispo home with RICE instructions. Discharge - Discharge Information Problems reviewed: Yes Clinical Impression/Diagnosis: Fall (on) (from) other stairs and steps, subsequent encounter Chronic lower back pain Qualifiers: Back pain laterality: unspecified Sciatica presence: with sciatica Sciatica laterality: sciatica of right side Qualified Code(s): M54.41 - Lumbago with sciatica, right side; G89.29 - Other chronic pain Condition: Improved Disposition: HOME - Follow up/Referral Referrals: Adam Malone [Primary Care Provider] - - Patient Discharge Instructions Patient Printed Discharge Instructions: DI for Low Back Pain, How To Perform RICE (Rest, Ice, Compress, Elevate) Additional Instructions: Today you were evaluated for lower back pain that is worse than your normal. We evaluated your back and found that you had some very tense muscles. To correct this, we performed a trigger point injection of numbing medications and you felt significant relief. We also got an X-ray of your back that did not show any abnormalities. Your back pain is likely related to a pulled muscle in your back after your fall. Please use hot packs and stretch your back as much as possible to relive the muscle tension. Please follow-up with your primary doctor in the next 3 days for further care, and your pain doctor on Saturday. Let him know that the trigger point injection was effective. If you experience worsening pain, become unable to walk, lose control of your bowel or bladder, have abdominal pain, numbness, or tingling, please return to the emergency room. - Post Discharge Activity
[2018-12-26] MEDS ORDERED: LIDOCAINE HCL 1%, 10 MG/ML (50 mL VIAL) SQ ONE (15:59)
--- NOTE | 2018-12-26 16:08 | PDOC ---
Documentation entered by Dre Griffith SCRIBE, acting as scribe for Rogers Castaneda MD. Rogers Castaneda MD: This documentation has been prepared by the Nacho kinsey Daniel, SCRIBE, under my direction and personally reviewed by me in its entirety. I confirm that the documentation accurately reflects all work, treatment, procedures, and medical decision making performed by me. Attending Attestation - Resident Resident Name: Mark Hardy - ED Attending Attestation I have performed the following: I have examined & evaluated the patient, The case was reviewed & discussed with the resident, I agree w/resident's findings & plan, Exceptions are as noted - HPI HPI: 12/26/18 15:24 The patient is a 38 year old female with a past medical history of fibromyalgia here today for evaluation of worsening lower back pain. The patient reports that she fell 9 days ago and came here for evaluation. She was discharged and given pain management follow up. Patient states that since then her back pain has worsened. She also notes some intermittent lightheadedness when the pain becomes severe. Denies any lightheadedness currently. Patient denies headache. Denies fever, chills. Denies chest pain, shortness of breath. Denies nausea, vomiting, diarrhea, abdominal pain. Allergies: iodinated contrast media, mushroom Surgical history: tubal ligation, gastric bypass, PCP: Adam Malone - Physicial Exam PE: 12/26/18 16:06 "GENERAL: Awake, alert, and fully oriented, in no acute distress. HEAD: No signs of trauma EYES: PERRLA, EOMI, sclera anicteric, conjunctiva clear ENT: Auricles normal inspection, hearing grossly normal, nares patent, oropharynx clear without exudates. Moist mucosa NECK: Nontender, no stepoffs, Normal ROM, supple, no lymphadenopathy, JVD, or masses LUNGS: Breath sounds equal, clear to auscultation bilaterally. No wheezes, and no crackles HEART: Regular rate and rhythm, normal S1 and S2, no murmurs, rubs or gallops ABDOMEN: Soft, nontender, normoactive bowel sounds. No guarding, no rebound. No masses EXTREMITIES: Normal range of motion, no edema. No clubbing or cyanosis. No cords, erythema, or tenderness NEUROLOGICAL: Cranial nerves II through XII intact. 5/5 strength and sensation in all extremities, Normal speech, normal gait, normal cerebellar function SKIN: Warm, Dry, normal turgor, no rashes or lesions noted. BACK: + R paraspinal TTP, no midline TTP, no stepoffs - Medical Decision Making 12/26/18 16:07 38 F with muscle spasm L lower back. - XR to r/o fx - Trigger point injection - Toradol, flexeril 12/26/18 16:25 Trigger point injection performed with 1% lidocaine 12cc Pt reports significant improvement in pain after trigger point injection Pt now able to ambulate around ED comfortably. XR negative Pt is well appearing, with normal vitals. Clinically stable for DC at this time. I discussed the physical exam findings, ancillary test results and final diagnoses with the patient. I answered all of the patient's questions. The patient was satisfied with the care received and felt comfortable with the discharge plan and treatment plan. The patient agrees to follow up with the primary care physician within 24-72 hours.
[2018-12-26] MEDS ORDERED: LIDOCAINE HCL 1%, 10 MG/ML (20ML VIAL) ONE (16:09)
[2018-12-26] MEDS ORDERED: CYCLOBENZAPRINE HCL 10 MG TABLET (FP) PO ONE (16:26)
[2018-12-26] MEDS ORDERED: KETOROLAC TROMETHAMINE 15 MG/ML VIAL IM ONE (16:26)
[2018-12-26 18:26] VITALS: BP 118/72; PULSE 78
== END 2018-12-26 18:27 | disposition home or self-care (01) ==
LOC: JER 14:04
DX: M54.41 Lumbago with sciatica, right side (principal); Z98.84 Bariatric surgery status; G89.29 Other chronic pain; M79.7 Fibromyalgia; K21.9 Gastro-esophageal reflux disease without esophagitis; I10 Essential (primary) hypertension; E07.9 Disorder of thyroid, unspecified; Z91.018 Allergy to other foods; Z91.041 Radiographic dye allergy status; R00.0 Tachycardia, unspecified; J45.909 Unspecified asthma, uncomplicated; D64.9 Anemia, unspecified; E11.9 Type 2 diabetes mellitus without complications
CPT/HCPCS: 72100-TC-FY; 84703; 99283-25

== ENCOUNTER 2019-01-15 22:09 | Emergency (ER) | payer OTHER ==
[2019-01-15 22:18] VITALS: BP 113/69; PULSE 95; TEMP 98.6; BMI 25.8
[2019-01-15] MEDS ORDERED: IBUPROFEN 600 MG TABLET (FP) PO ONE ×2 (22:42→23:06)
[2019-01-15] MEDS ORDERED: SULFAMETHOXAZOLE/TRIMETHOPRIM 800MG/160MG D.S. TABLET PO ONE (22:42)
[2019-01-15] MEDS ORDERED: CEPHALEXIN MONOHYDRATE 500 MG CAPSULE (UD) PO ONE (22:42)
--- NOTE | 2019-01-15 22:42 | PDOC ---
History of Present Illness <Harshad Plaza - Last Filed: 01/15/19 22:50> - General History Source: Patient Exam Limitations: No Limitations <Kemi Hernandez - Last Filed: 01/16/19 00:45> - General Chief Complaint: Bite Stated Complaint: BEE STING Time Seen by Provider: 01/15/19 22:26 Past History <Harshad Plaza - Last Filed: 01/15/19 22:50> - Travel Traveled outside of the country in the last 30 days: No Close contact w/someone who was outside of country & ill: No - Past Medical History Anemia: Yes Asthma: Yes Cancer: No Cardiac Disorders: Yes CVA: No COPD: No CHF: No Dementia: No Diabetes: ("chronically hypoglycemic") GI Disorders: Yes Disorders: No HTN: Yes Hypercholesterolemia: No Liver Disease: No Seizures: Yes Thyroid Disease: Yes - Surgical History Abdominal Surgery: No Appendectomy: No Cardiac Surgery: No Cholecystectomy: No GI Surgery: Yes (gastric bypass: 08/22/2015) Lung Surgery: No Neurologic Surgery: No - Reproductive History (#): 6 Para: 3 Tubal Ligation: Yes - Immunization History Td Vaccination: Yes TDAP Vaccination: Yes Immunization Up to Date: Yes - Psycho Social/Smoking Cessation Hx Smoking Status: Yes Smoking History: Never smoked Have you smoked in the past 12 months: No Number of Cigarettes Smoked Daily: 0 Cigars Per Day: 0 Hx Alcohol Use: No Drug/Substance Use Hx: No Substance Use Type: None Hx Substance Use Treatment: No <Kemi Hernandez - Last Filed: 01/16/19 00:45> - Past Medical History Allergies/Adverse Reactions: Allergies Allergy/AdvReac Type Severity Reaction Status Date / Time Iodinated Contrast Media Allergy Severe Swelling Verified 01/15/19 22:16 [Iodinated Contrast Media - IV Dye] mushroom Allergy Severe Rash Verified 01/15/19 22:16 Home Medications: Ambulatory Orders Gabapentin 100 mg PO HS 03/27/17 Oxycodone HCl/Acetaminophen [Percocet 5-325 mg Tablet] 1 tab PO Q6H PRN Tizanidine HCl [Zanaflex (Nf)] 4 mg PO ASDIR 02/10/18 Back Brace [Ultra Support] 1 each ONCE #1 each 12/26/18 Ibuprofen 600 mg PO TID PRN #15 tablet 12/26/18 Cephalexin Monohydrate [Keflex -] 500 mg PO BID #14 capsule 01/15/19 Fluticasone Prop 0.05% Nasal [Flonase -] 1 - 2 spray NS DAILY #1 spray.pump 09/26 Ibuprofen 600 mg PO Q6H #30 tablet 01/15/19 Sulfamethoxazole/Trimethoprim [Bactrim Ds -] 1 tab PO BID #14 tablet 01/15/19 Review of Systems - Review of Systems Able to Perform ROS?: Yes Comments:: 01/16/19 00:33 CONSTITUTIONAL: Absent: fever, chills, diaphoresis, generalized weakness, malaise, loss of appetite HEENT: Absent: rhinorrhea, nasal congestion, throat pain, throat swelling, difficulty swallowing, mouth swelling, ear pain, eye pain, visual Changes MUSCULOSKELETAL: Absent: myalgia, arthralgia, joint swelling SKIN: Present: rash Absent: itching, pallor NEUROLOGIC: Absent: headache, focal weakness or paresthesias, dizziness, unsteady gait, seizure, mental status changes, bladder or bowel incontinence PSYCHIATRIC: Absent: anxiety, depression, suicidal or homicidal ideation, hallucinations. Is the patient limited [place]ayan proficient: No <Kemi Hernandez - Last Filed: 01/16/19 00:45> *Physical Exam - Vital Signs Last Vital Signs Temp Pulse Resp BP Pulse Ox 98.6 F 95 H 17 113/69 100 01/15/19 22:14 01/15/19 22:14 01/15/19 22:14 01/15/19 22:14 01/15/19 22:14 <Harshad Plaza - Last Filed: 01/15/19 22:50> - Vital Signs Last Vital Signs Temp Pulse Resp BP Pulse Ox 98.6 F 95 H 17 113/69 100 01/15/19 22:14 01/15/19 22:14 01/15/19 22:14 01/15/19 22:14 01/15/19 22:14 - Physical Exam Comments: 01/16/19 00:38 GENERAL: The patient is awake, alert, and fully oriented, in no acute distress. HEAD: Normal with no signs of trauma. EYES: Pupils equal, round and reactive to light, extraocular movements intact, sclera anicteric, conjunctiva clear. EXTREMITIES: Normal range of motion, no edema. NEUROLOGICAL: Normal speech, normal gait. PSYCH: Normal mood, normal affect. SKIN: Cellulitic area 4 cm x 2 cm ovoid distribution to the right medial thigh with a puncture leonardo in the middle of the area. Right medial myrick with 2 cm round area of cellulitis. Warm, Dry, normal turgor. <Kemi Hernandez - Last Filed: 01/16/19 00:45> Medical Decision Making - Medical Decision Making 01/15/19 22:51 The patient was seen and evaluated in conjunction with CONY Hernandez under my direct supervision, ancillary studies were reviewed.I agree with the plan as outlined by CONY Hernandez . We will treat patient for superinfection/cellulitis of bee sting <Harshad Plaza - Last Filed: 01/15/19 22:50> - Medical Decision Making 01/16/19 00:40 The patient is a 38-year-old female with past medical history of MRSA, presents to the ER today for 2 bee stings that occurred 1 week ago. She states she got stung on her right inner thigh and left lower myrick. She states that the areas became red and painful the last 2 days. She is concerned she might have another MRSA infection so she came to the ER for evaluation. Denies fevers, chills, nausea, vomiting, numbness and tingling weakness the affected extremity. A/P: Cellulitis On exam cellulitic area to the right medial thigh and left lower myrick. Central area of puncture noted where bee sting could have occurred. Given history of MRSA, will treat with Bactrim and Keflex at this time. The area was marked with a sharpie. Strict return precautions given should the infection spread. Patient to follow-up with her primary care doctor this week. Will discharge home I discussed the physical exam findings, ancillary test results and final diagnoses with the patient. I answered all of the patient's questions. The patient was satisfied with the care received and felt comfortable with the discharge plan and treatment plan. The Patient agrees to follow up with the primary care physician/specialist within 24-72 hours. Return precautions were given. <Kemi Hernandez - Last Filed: 01/16/19 00:45> Discharge <Harshad Plaza - Last Filed: 01/15/19 22:50> - Discharge Information Problems reviewed: Yes - Admission No <Kemi Hernandez - Last Filed: 01/16/19 00:45> - Discharge Information Clinical Impression/Diagnosis: Cellulitis Qualifiers: Site of cellulitis: extremity Site of cellulitis of extremity: lower extremity Laterality: right Qualified Code(s): L03.115 - Cellulitis of right lower limb Eustachian tube disorder Qualifiers: Laterality: left Qualified Code(s): H69.92 - Unspecified Eustachian tube disorder, left ear Condition: Stable Disposition: HOME - Additional Discharge Information Prescriptions: Cephalexin Monohydrate [Keflex -] 500 mg PO BID #14 capsule Fluticasone Prop 0.05% Nasal [Flonase -] 1 - 2 spray NS DAILY #1 spray.pump Ibuprofen 600 mg PO Q6H #30 tablet Sulfamethoxazole/Trimethoprim [Bactrim Ds -] 1 tab PO BID #14 tablet - Follow up/Referral Referrals: Adam Malone [Primary Care Provider] - - Patient Discharge Instructions Patient Printed Discharge Instructions: DI for Cellulitis -- Adult, DI for Eustachian Tube Dysfunction-Adult Additional Instructions: You have cellulitis. This is a skin infection. Please take the Bactrim and Keflex twice a day for one week. Please take all the antibiotics even if you feel better. You may use warm water soaks to the area. Please do this approximately 4-5 times a day. Please avoid shaving the skin around the area of redness. You may take Tylenol or Motrin as needed for pain. Follow the dosing instruction on the bottle. You also have left ear pain which is due to the fluid levels being off. Please use the nasal spray twice a day until your symptoms improve. Please follow up with your primary care doctor in 1 week. Return to the emergency department if you have worsening redness, fevers, increasing pain, or have any changes in your symptoms. - Post Discharge Activity Work/Back to School Note: Back to Work
[2019-01-15] MEDS ORDERED: SULFAMETHOXAZOLE/TRIMETHOPRIM 800MG/160MG D.S. TABLET ONE (23:06)
[2019-01-15] MEDS ORDERED: CEPHALEXIN MONOHYDRATE 500 MG CAPSULE (UD) ONE (23:06)
== END 2019-01-15 23:13 | disposition home or self-care (01) ==
LOC: JER 22:09
DX: T63.441A Toxic effect of venom of bees, accidental (unintentional), initial encounter (principal); L03.115 Cellulitis of right lower limb; L03.116 Cellulitis of left lower limb; H69.92 Unspecified Eustachian tube disorder, left ear; Z91.041 Radiographic dye allergy status; Z88.8 Allergy status to other drugs, medicaments and biological substances
CPT/HCPCS: 99281-25

== ENCOUNTER 2019-01-20 18:15 | Emergency (ER) | payer OTHER ==
[2019-01-20 18:21] VITALS: BP 116/65; PULSE 90; TEMP 98; BMI 25.8
--- NOTE | 2019-01-20 18:21 | PDOC ---
Rapid Medical Evaluation Time Seen by Provider: 01/20/19 18:17 Medical Evaluation: Allergies Allergy/AdvReac Type Severity Reaction Status Date / Time Iodinated Contrast Media Allergy Severe Swelling Verified 01/15/19 22:16 [Iodinated Contrast Media - IV Dye] mushroom Allergy Severe Rash Verified 01/15/19 22:16 01/20/19 18:17 I have performed a brief in-person evaluation of this patient. The patient presents with a chief complaint of: low back pain, "my gallbladder hurts", RUQ pain, hx of fibromyalgia, "i take percocets" Pertinent physical exam findings: RUQ tenderness I have ordered the following: labs, urine 12/31/2018 01/02/2019 pregabalin 75 mg capsule 90 30 Tyler Weeks S, PA 01/02/2019 01/02/2019 endocet 10-325 mg tablet 90 30 Tyler Weeks S, PA 12/02/2018 12/05/2018 endocet 10-325 mg tablet 60 30 Blaze, Khadar 11/03/2018 11/04/2018 endocet 10-325 mg tablet 90 30 Blaze, Khadar 10/20/2018 10/24/2018 zolpidem tartrate 5 mg tablet 30 30 Obi, Nishant 09/30/2018 10/04/2018 oxycodone-acetaminophen 10-325 mg tab 90 30 [place], Khadar The patient will proceed to the ED for further evaluation. Discharge Disposition - Diagnosis Back pain, Right upper quadrant pain - Referrals - Patient Instructions - Post Discharge Activity
--- NOTE | 2019-01-20 19:19 | PDOC ---
History of Present Illness - General Chief Complaint: Pain Stated Complaint: PAIN Time Seen by Provider: 01/20/19 18:17 History Source: Patient - History of Present Illness Initial Comments: 01/20/19 19:23 38 year old female RUQ pain for "weeks" , now worsening with nausea, burping, patient reports that pain is worse after eating. subjective fever at home yesterday. denies diarrhea, urinary symptoms, chest pain PMHX: fibromyalgia( on tizandine, percocet lyrica), chronic back pain, herniated disc, GERD. PSHX: Gastric bypass, tummy tracick( 2018), uterine ablation, Past History - Past Medical History Allergies/Adverse Reactions: Allergies Allergy/AdvReac Type Severity Reaction Status Date / Time Iodinated Contrast Media Allergy Severe Swelling Verified 01/20/19 18:21 [Iodinated Contrast Media - IV Dye] mushroom Allergy Severe Rash Verified 01/20/19 18:21 Home Medications: Ambulatory Orders Gabapentin 100 mg PO HS 03/27/17 Oxycodone HCl/Acetaminophen [Percocet 5-325 mg Tablet] 1 tab PO Q6H PRN Tizanidine HCl [Zanaflex (Nf)] 4 mg PO ASDIR 02/10/18 Back Brace [Ultra Support] 1 each MC ONCE #1 each 12/26/18 Ibuprofen 600 mg PO TID PRN #15 tablet 12/26/18 Cephalexin Monohydrate [Keflex -] 500 mg PO BID #14 capsule 01/15/19 Fluticasone Prop 0.05% Nasal [Flonase -] 1 - 2 spray NS DAILY #1 spray.pump 09/26 Ibuprofen 600 mg PO Q6H #30 tablet 01/15/19 Sulfamethoxazole/Trimethoprim [Bactrim Ds -] 1 tab PO BID #14 tablet 01/15/19 Famotidine [Pepcid] 40 mg PO DAILY #30 tablet 01/20/19 Anemia: Yes Asthma: Yes Cancer: No Cardiac Disorders: Yes CVA: No COPD: No CHF: No Dementia: No Diabetes: ("chronically hypoglycemic") GI Disorders: Yes Disorders: No HTN: Yes Hypercholesterolemia: No Liver Disease: No Seizures: Yes Thyroid Disease: Yes - Surgical History Abdominal Surgery: No (UTERINE ABLATION) Appendectomy: No Cardiac Surgery: No Cholecystectomy: No GI Surgery: Yes (gastric bypass: 08/22/2015) Lung Surgery: No Neurologic Surgery: No - Reproductive History (#): 6 Para: 3 Tubal Ligation: Yes - Immunization History Td Vaccination: Yes TDAP Vaccination: Yes Immunization Up to Date: Yes - Psycho Social/Smoking Cessation Hx Smoking Status: Yes Smoking History: Never smoked Have you smoked in the past 12 months: No Number of Cigarettes Smoked Daily: 0 Cigars Per Day: 0 Hx Alcohol Use: No Drug/Substance Use Hx: No Substance Use Type: None Hx Substance Use Treatment: No Review of Systems - Review of Systems Able to Perform ROS?: Yes Is the patient limited Chinese proficient: No Constitutional: Yes: Fever ABD/GI: Yes: Nausea, Abdominal cramping, Other (burping) : No: Symptoms Reported, See HPI, Burning, Dysuria, Discharge, Frequency, Flank Pain, Hematuria, Incontinence, Pain, Urgency, Testicular Mass, Testicular Swelling, Lesions, Testicular Pain, Other Musculoskeletal: No: Symptoms Reported, See HPI, Back Pain, Gout, Joint Pain, Joint Swelling, Muscle Pain, Muscle Weakness, Neck Pain, Joint Stiffness, Other Integumentary: No: Symptoms Reported, See HPI, Bruising, Change in Color, Change in Hair/Nails, Dryness, Erythema, Flushing, Lesions, Lumps, Pallor, Pruritus, Rash, Sweating, Other *Physical Exam - Vital Signs Last Vital Signs Temp Pulse Resp BP Pulse Ox 98 F 90 18 116/65 99 01/20/19 18:17 01/20/19 18:17 01/20/19 18:17 01/20/19 18:17 01/20/19 18:17 - Physical Exam General Appearance: Yes: Appropriately Dressed Respiratory/Chest: positive: Lungs Clear, Normal Breath Sounds Cardiovascular: positive: Regular Rhythm, Regular Rate Gastrointestinal/Abdominal: positive: Normal Bowel Sounds, Tender (RUQ, RLQ pain ), Soft Musculoskeletal: positive: Normal Inspection Extremity: positive: Normal Capillary Refill, Normal Inspection, Normal Range of Motion Integumentary: positive: Normal Color, Dry, Warm Neurologic: positive: Fully Oriented, Alert, Normal Mood/Affect ED Treatment Course - LABORATORY CBC & Chemistry Diagram: 01/20/19 20:00 01/20/19 20:00 ED Progress Note - Progress Note Progress Note: 01/20/19 19:32 A: abdominal pain P: cbc cmp Abdominal US TVUS ua Urine Medical Decision Making - Medical Decision Making 01/20/19 21:37 patient has no right lower quadrant pain. pain is now at RUQ area. pain has subsided. US reviewed with patient 01/21/19 03:59 Discharge - Discharge Information Problems reviewed: Yes Clinical Impression/Diagnosis: Back pain Qualifiers: Back pain location: low back pain Chronicity: acute Back pain laterality: unspecified Sciatica presence: without sciatica Qualified Code(s): M54.5 - Low back pain Abdominal pain Qualifiers: Abdominal location: right upper quadrant Qualified Code(s): R10.11 - Right upper quadrant pain Disposition: HOME - Additional Discharge Information Prescriptions: Famotidine [Pepcid] 40 mg PO DAILY #30 tablet - Follow up/Referral Referrals: Adam Malone [Primary Care Provider] - Rogers Gomez MD [Staff Physician] - Call tomorrow Fredi Horn MD [Staff Physician] - Call tomorrow - Patient Discharge Instructions Patient Printed Discharge Instructions: DI for Abdominal Pain-Adult Additional Instructions: Drink plenty of fluids. You may continue taking your Percocet as needed for pain. Please follow-up with a head cd reactor operator and a surgeon regarding your gallbladder. A referral was given to you today. Please return immediately to the emergency room if your symptoms worsen or you are having fever or the pain is migrating to other lower abdomen. - Post Discharge Activity Work/Back to School Note: Back to Work
[2019-01-20] MEDS ORDERED: ONDANSETRON 4 MG/2 ML VIAL IVPB ONE (19:32)
[2019-01-20] MEDS ORDERED: SODIUM CHLORIDE 0.9% 500 ML INFUS.BAG IV ONE (19:32)
[2019-01-20] MEDS ORDERED: morphine CARPU-JECT 2 MG/1 ML DISP.SYRIN IVPUSH ONE (19:32)
[2019-01-20] MEDS ORDERED: MORPHINE SULFATE 2 MG/ML VIAL ONE (20:49)
[2019-01-20] MEDS ORDERED: ONDANSETRON 4 MG/2 ML VIAL ONE (20:49)
[2019-01-20 20:52] LABS: BASO % 0.8 % (0-2.0); EOS % 3.5 % (0-4.5); HEMATOCRIT 42.7 % (32.4-45.2); HEMOGLOBIN 14.3 GM/dL (10.7-15.3); LYMPH % 26.9 % (8-40); MCH 29.4 pg (25.7-33.7); MCHC 33.4 g/dl (32.0-36.0); MEAN CELL VOLUME 87.9 fl (80-96); MEAN PLT VOLUME 9.4 fl (7.5-11.1); MONO % 5.6 % (3.8-10.2); NEUT % 63.2 % (42.8-82.8); PLATELET COUNT 265 K/MM3 (134-434); RBC 4.86 M/mm3 (3.60-5.2); RDW 12.9 % (11.6-15.6); WHITE BLOOD COUNT 7.9 K/mm3 (4.0-10.0)
[2019-01-20 21:21] LABS: ALBUMIN 4.3 g/dl (3.4-5.0); BILIRUBIN,TOTAL 0.4 mg/dL (0.2-1); BLOOD UREA NITROGEN 13.9 mg/dL (7-18); CALCIUM 9.3 mg/dL (8.5-10.1); CREATININE 0.9 mg/dL (0.55-1.3); TOT PROT 7.9 g/dl (6.4-8.2)
[2019-01-20 21:33] LABS: URINE APPEARANCE CLEAR; URINE BILIRUBIN NEGATIVE (NEGATIVE); URINE COLOR YELLOW; URINE GLUCOSE (UA) NEGATIVE (NEGATIVE); URINE KETONE NEGATIVE (NEGATIVE); URINE LEUK ESTERASE NEGATIVE (NEGATIVE); URINE NITRITE NEGATIVE (NEGATIVE); URINE PROTEIN NEGATIVE (NEGATIVE)
[2019-01-20] MEDS ORDERED: KETOROLAC TROMETHAMINE 30 MG/1 ML VIAL IVPUSH ONE (21:33)
[2019-01-20] MEDS ORDERED: traMADol HCL 50 MG TABLET PO ONE (21:33)
[2019-01-20] MEDS ORDERED: FAMOTIDINE 20 MG/50 ML IVPB 20 MG/50 ML MG IVPB ONE ×2 (21:37→21:47)
[2019-01-20] MEDS ORDERED: KETOROLAC TROMETHAMINE 30 MG/1 ML VIAL ONE (21:46)
[2019-01-20] MEDS ORDERED: traMADol HCL 50 MG TABLET ONE (21:46)
== END 2019-01-20 22:50 | disposition home or self-care (01) ==
LOC: JER 18:15
PROC: 3E033GC Introduction of Other Therapeutic Substance into Peripheral Vein, Percutaneous Approach (ICD-10-PCS; principal; 2019-01-20)
PROC: 3E033NZ Introduction of Analgesics, Hypnotics, Sedatives into Peripheral Vein, Percutaneous Approach (ICD-10-PCS; 2019-01-20)
PROC: 3E0333Z Introduction of Anti-inflammatory into Peripheral Vein, Percutaneous Approach (ICD-10-PCS; 2019-01-20)
PROC: 3E033GC Introduction of Other Therapeutic Substance into Peripheral Vein, Percutaneous Approach (ICD-10-PCS; 2019-01-20)
DX: R10.11 Right upper quadrant pain (principal); K21.9 Gastro-esophageal reflux disease without esophagitis; M79.7 Fibromyalgia; E16.2 Hypoglycemia, unspecified; Z91.041 Radiographic dye allergy status; Z91.018 Allergy to other foods; I10 Essential (primary) hypertension; E07.9 Disorder of thyroid, unspecified; Z98.84 Bariatric surgery status
CPT/HCPCS: 36415; 76705-TC; 76830-TC; 76856-TC; 80053; 81003; 83690; 84703; 85025; 96365; 96375; 99282-25

== ENCOUNTER 2019-01-25 19:30 | Emergency (ER) | payer OTHER ==
[2019-01-25 19:34] VITALS: BP 118/80; PULSE 93; TEMP 98.1; BMI 27.0
[2019-01-25] MEDS ORDERED: ACETAMINOPHEN 1000 MG/100 ML VIAL (NON FORMULARY) IVPB ONE (20:49)
[2019-01-25] MEDS ORDERED: SODIUM CHLORIDE 0.9% 500 ML INFUS.BAG IV ONE (20:55)
[2019-01-25 21:29] LABS: BASO % 0.6 % (0-2.0); EOS % 2.3 % (0-4.5); HEMATOCRIT 38.4 % (32.4-45.2); HEMOGLOBIN 12.5 GM/dL (10.7-15.3); LYMPH % 17.3 % (8-40); MCH 28.6 pg (25.7-33.7); MCHC 32.7 g/dl (32.0-36.0); MEAN CELL VOLUME 87.7 fl (80-96); MEAN PLT VOLUME 9.7 fl (7.5-11.1); MONO % 6.6 % (3.8-10.2); NEUT % 73.2 % (42.8-82.8); PLATELET COUNT 235 K/MM3 (134-434); RBC 4.38 M/mm3 (3.60-5.2); RDW 12.9 % (11.6-15.6); WHITE BLOOD COUNT 7.9 K/mm3 (4.0-10.0)
--- NOTE | 2019-01-25 21:40 | PDOC ---
History of Present Illness - General Chief Complaint: Pain Stated Complaint: PAIN Time Seen by Provider: 01/25/19 20:36 - History of Present Illness Initial Comments: 01/25/19 21:29 38 yo F PMH fibromyalgia, gastric bypass (2016) s/p tylerjohn avilesck (2018), C- section X2, tubal ligation, allergies to adhesive tape and contrast, p/w RUQ abdominal pain. Reports that it feels identical to her previous gallbladder pain , which has been worked up in the past (previous RUQ US w/ thickened gallbladder , likely physiological, without evidence of calculus). States that she has not been able to see a surgeon 2/2 insurance issues. Has called them and was recommended only doctors in the [place], and patient is adamant that she wants to see someone in [place]. Reports that her RUQ abdominal pain began yesterday, 12/18, "stabbing with an icepick". Tried ibuprofen and acetaminophen without relief. Associated with nausea (one episode of vomiting yesterday), one episode of diarrhea yesterday, and throbbing frontal SORIA, 10/18, unlike her migraines, no photophobia or phonophobia. Further complains of worsened fibromyalgia. Specifically denies CP, SOB, fevers/chills, constipation, weakness, numbness, and tingling. Sees pain management Dr. Thakur, has not had her pain medications refilled in over a week (has not been able to see him). Past History - Past Medical History Allergies/Adverse Reactions: Allergies Allergy/AdvReac Type Severity Reaction Status Date / Time Iodinated Contrast Media Allergy Severe Swelling Verified 01/25/19 19:35 [Iodinated Contrast Media - IV Dye] mushroom Allergy Severe Rash Verified 01/25/19 19:35 adhesive tape Allergy Verified 01/25/19 19:36 Home Medications: Ambulatory Orders Gabapentin 100 mg PO HS 03/27/17 Oxycodone HCl/Acetaminophen [Percocet 5-325 mg Tablet] 1 tab PO Q6H PRN Tizanidine HCl [Zanaflex (Nf)] 4 mg PO ASDIR 02/10/18 Back Brace [Ultra Support] 1 each MC ONCE #1 each 12/26/18 Ibuprofen 600 mg PO TID PRN #15 tablet 12/26/18 Cephalexin Monohydrate [Keflex -] 500 mg PO BID #14 capsule 01/15/19 Fluticasone Prop 0.05% Nasal [Flonase -] 1 - 2 spray NS DAILY #1 spray.pump 09/26 Ibuprofen 600 mg PO Q6H #30 tablet 01/15/19 Sulfamethoxazole/Trimethoprim [Bactrim Ds -] 1 tab PO BID #14 tablet 01/15/19 Famotidine [Pepcid] 40 mg PO DAILY #30 tablet 01/20/19 Anemia: Yes Asthma: Yes Cancer: No Cardiac Disorders: Yes CVA: No COPD: No CHF: No Dementia: No Diabetes: ("chronically hypoglycemic") GI Disorders: Yes Disorders: No HTN: Yes Hypercholesterolemia: No Liver Disease: No Seizures: Yes Thyroid Disease: Yes Other medical history: fibromyalgia - Surgical History Abdominal Surgery: No (UTERINE ABLATION) Appendectomy: No Cardiac Surgery: No Cholecystectomy: No GI Surgery: Yes (gastric bypass: 08/22/2015) Lung Surgery: No Neurologic Surgery: No - Reproductive History (#): 6 Para: 3 Tubal Ligation: Yes - Immunization History Td Vaccination: Yes TDAP Vaccination: Yes Immunization Up to Date: Yes - Psycho Social/Smoking Cessation Hx Smoking Status: Yes Smoking History: Never smoked Have you smoked in the past 12 months: No Number of Cigarettes Smoked Daily: 0 Cigars Per Day: 0 Information on smoking cessation initiated: No Hx Alcohol Use: No (denies) Drug/Substance Use Hx: No (denies) Substance Use Type: None Hx Substance Use Treatment: No Review of Systems - Review of Systems Comments:: 01/25/19 21:43 GENERAL/CONSTITUTIONAL: No fever or chills. No weakness. HEAD, EYES, EARS, NOSE AND THROAT: No change in vision. No ear pain or discharge. No sore throat. CARDIOVASCULAR: No chest pain or shortness of breath. RESPIRATORY: No cough, wheezing, or hemoptysis. GASTROINTESTINAL: Nausea with one episode of vomiting. One episode of diarrhea. No constipation. GENITOURINARY: No dysuria, frequency, or change in urination. MUSCULOSKELETAL: No joint or muscle swelling or pain. Chronic back pain. SKIN: No rash NEUROLOGIC: Frontal headache. No vertigo, loss of consciousness, or change in strength/sensation. ENDOCRINE: No increased thirst. No abnormal weight change. HEMATOLOGIC/LYMPHATIC: No anemia, easy bleeding, or history of blood clots. ALLERGIC/IMMUNOLOGIC: No hives or skin allergy *Physical Exam - Vital Signs Last Vital Signs Temp Pulse Resp BP Pulse Ox 98.1 F 93 H 18 118/80 98 01/25/19 19:31 01/25/19 19:31 01/25/19 19:31 01/25/19 19:31 01/25/19 19:31 - Physical Exam Comments: 01/25/19 21:44 Gen: well-developed, well-nourished, NAD Neuro: AAOX4, CN II-XII intact, FTN intact, EOMI, PERRLA, 5/5 strength, SILT HEENT: atraumatic, normocephalic, dry mucous membranes Neck: trachea midline, supple CV: regular rate, regular rhythm, no murmurs, rubs, or gallops Pulm: CTA b/l, no wheezing Abd: soft, non-distended, distractible tenderness in RUQ and epigastric regions MSK: full ROM, intact pulses Extr: no edema, no deformities Skin: warm, dry ED Treatment Course - LABORATORY CBC & Chemistry Diagram: 01/25/19 21:25 01/25/19 21:25 Medical Decision Making - Medical Decision Making 01/25/19 21:29 Patient here with acute on chronic pain, in s/o not seeing her pain specialist in over a week. - CBC, CMP, lipase - Ofirmev - fluids - reassess - likely dc for further outpatient management 01/25/19 22:42 Patient feeling much better, amenable to follow up with her pain specialist. Will dc, provide list of surgeons, encourage follow up with her pain specialist. Discharge - Discharge Information Problems reviewed: Yes Clinical Impression/Diagnosis: Chronic pain, RUQ abdominal pain Condition: Improved Disposition: HOME - Admission No - Follow up/Referral Referrals: Rogers Gomez MD [Staff Physician] - Shola Cesar MD [Staff Physician] - Moe Miller MD [Non Staff, Medical] - Dominick Allen MD [Staff Physician] - Sujatha Tejeda MD [Staff Physician] - Evan Chapin MD [Staff Physician] - Maximus Frances MD [Non Staff, Medical] - Drew Owen RES [Non Staff, Medical] - Malathi Schultz MD [Staff Physician] - - Patient Discharge Instructions Patient Printed Discharge Instructions: DI for Abdominal Pain-Adult Additional Instructions: You were seen with abdominal pain. Your labs were unremarkable, and your symptoms improved with medication. We included multiple possible surgeons whom you may call to set up an appointment with. Please follow up with your pain specialist within the next few days. Follow up with your primary care doctor within one week. Return to the ED if you develop worsening symptoms. - Post Discharge Activity
[2019-01-25] MEDS ORDERED: ACETAMINOPHEN INJECTION 100 ML IVPB ONE (21:47)
--- NOTE | 2019-01-25 21:47 | PDOC ---
Documentation entered by Estrella Guerrero SCRIBE, acting as scribe for Antoinette Schmitz MD. Antoinette Schmitz MD: This documentation has been prepared by the tayloribbruno, Estrella Guerrero SCRIBE, under my direction and personally reviewed by me in its entirety. I confirm that the documentation accurately reflects all work, treatment, procedures, and medical decision making performed by me. Attending Attestation - Resident Resident Name: Carolee Miller - ED Attending Attestation I have performed the following: I have examined & evaluated the patient, The case was reviewed & discussed with the resident, I agree w/resident's findings & plan, Exceptions are as noted - HPI HPI: 01/25/19 20:50 Slender 38 yo female p/w chronic RUQ discomfort and fibromyalgia. She would like a name of a surgeon who would accept her insurance and also she said she ran out of her Percocet for the past week. 01/25/19 21:02 - Physicial Exam PE: 01/25/19 21:40 slender 38 yo female n no acute distress head ncat neck supple lungs cta b/l cvs [id number] abd no rebound, no guarding skin warm and dry no cva tenderness neuro axox3,ambulatory - Medical Decision Making 01/25/19 21:41 this pt was here last week for RUQ pain and had labs and ultrasound of abdomen and pelvic done. It was essentially a negative work up She has had this pain for many years mark before her gastric bypass She feels that if she had her gallbladder out the pain would resolve and wants some names of surgeons who take her insurance and also she wants her percocet RX renewed She currently has a benign abd exam She denies nausea ,vomiting,fever,chills labs are unremarkable will d/c home and have her followup with her pain mgnt specialist 01/25/19 22:14
[2019-01-25 21:55] LABS: BILIRUBIN,TOTAL 0.4 mg/dL (0.2-1); BLOOD UREA NITROGEN 17.6 mg/dL (7-18); CREATININE 0.8 mg/dL (0.55-1.3); POTASSIUM 4.4 mmol/L (3.5-5.1); TOT PROT 6.9 g/dl (6.4-8.2)
== END 2019-01-25 23:38 | disposition home or self-care (01) ==
LOC: JER 19:30
PROC: 3E033NZ Introduction of Analgesics, Hypnotics, Sedatives into Peripheral Vein, Percutaneous Approach (ICD-10-PCS; principal; 2019-01-25)
DX: R10.11 Right upper quadrant pain (principal); G89.29 Other chronic pain; M79.7 Fibromyalgia; I10 Essential (primary) hypertension; E07.9 Disorder of thyroid, unspecified; Z87.09 Personal history of other diseases of the respiratory system; Z86.2 Personal history of diseases of the blood and blood-forming organs and certain disorders involving the immune mechanism; Z98.84 Bariatric surgery status; E16.2 Hypoglycemia, unspecified; Z91.018 Allergy to other foods; Z91.041 Radiographic dye allergy status; Z91.048 Other nonmedicinal substance allergy status
CPT/HCPCS: 36415; 80053; 83690; 85025; 96374; 99282-25; J0131

== ENCOUNTER 2019-03-07 19:42 | Emergency (ER) | payer OTHER ==
[2019-03-07 19:50] VITALS: BMI 27.0
--- NOTE | 2019-03-07 21:02 | PDOC ---
History of Present Illness - General Chief Complaint: Cold Symptoms Stated Complaint: COLD SYMPTOMS Time Seen by Provider: 03/07/19 20:37 History Source: Patient - History of Present Illness Initial Comments: 03/07/19 20:59 Chief complaint: Nasal congestion and cough Patient is a 38-year-old female with history of fibromyalgia, asthma who for 2 weeks has had cough and nasal congestion. No fever now. Patient states she did have fever when this started. Other family members have the flu. Patient states she used her inhaler earlier today. Patient has no signs of respiratory distress. Patient has no fever today. GENERAL/CONSTITUTIONAL: No fever, weakness. dizziness HEAD, EYES, EARS, NOSE AND THROAT: No change in vision. No ear pain or discharge. No sore throat. + Nasal congestion CARDIOVASCULAR: No chest pain RESPIRATORY: No shortness of breath +cough GASTROINTESTINAL: No pain, nausea, vomiting, diarrhea or constipation GENITOURINARY: No dysuria MUSCULOSKELETAL: No neck or back pain SKIN: No rash NEUROLOGIC: No headache, vertigo, loss of consciousness, or loss of sensation. GENERAL: The patient is awake, alert, and fully oriented, in no acute distress. HEAD: Normal with no signs of trauma. EYES: Pupils equal, round and reactive to light, sclera anicteric, conjunctiva clear. ENT: pharynx: no erythema, no exudate, uvula midline NECK: supple CHEST: clear, nontender, rr ABD: soft, nontender BACK: no tenderness or signs of injury EXTREMITIES: Normal range of motion, no edema. NEUROLOGICAL: Normal speech, normal gait. SKIN: Warm, Dry Past History - Past Medical History Allergies/Adverse Reactions: Allergies Allergy/AdvReac Type Severity Reaction Status Date / Time Iodinated Contrast Media Allergy Severe Swelling Verified 01/25/19 19:35 [Iodinated Contrast Media - IV Dye] mushroom Allergy Severe Rash Verified 01/25/19 19:35 adhesive tape Allergy Verified 01/25/19 19:36 Home Medications: Ambulatory Orders Gabapentin 100 mg PO HS 03/27/17 Oxycodone HCl/Acetaminophen [Percocet 5-325 mg Tablet] 1 tab PO Q6H PRN Tizanidine HCl [Zanaflex (Nf)] 4 mg PO ASDIR 02/10/18 Back Brace [Ultra Support] 1 each MC ONCE #1 each 12/26/18 Ibuprofen 600 mg PO TID PRN #15 tablet 12/26/18 Cephalexin Monohydrate [Keflex -] 500 mg PO BID #14 capsule 01/15/19 Fluticasone Prop 0.05% Nasal [Flonase -] 1 - 2 spray NS DAILY #1 spray.pump 09/26 Ibuprofen 600 mg PO Q6H #30 tablet 01/15/19 Sulfamethoxazole/Trimethoprim [Bactrim Ds -] 1 tab PO BID #14 tablet 01/15/19 Famotidine [Pepcid] 40 mg PO DAILY #30 tablet 01/20/19 Anemia: Yes Asthma: Yes Cancer: No Cardiac Disorders: Yes CVA: No COPD: No CHF: No Dementia: No Diabetes: ("chronically hypoglycemic") GI Disorders: Yes Disorders: No HTN: Yes Hypercholesterolemia: No Liver Disease: No Seizures: Yes Thyroid Disease: Yes - Surgical History Abdominal Surgery: No (UTERINE ABLATION) Appendectomy: No Cardiac Surgery: No Cholecystectomy: No GI Surgery: Yes (gastric bypass: 08/22/2015) Lung Surgery: No Neurologic Surgery: No - Reproductive History (#): 6 Para: 3 Tubal Ligation: Yes - Immunization History Td Vaccination: Yes TDAP Vaccination: Yes Immunization Up to Date: Yes - Psycho Social/Smoking Cessation Hx Smoking Status: Yes Smoking History: Never smoked Have you smoked in the past 12 months: No Number of Cigarettes Smoked Daily: 0 Cigars Per Day: 0 Hx Alcohol Use: No (denies) Drug/Substance Use Hx: No (denies) Substance Use Type: None Hx Substance Use Treatment: No *Physical Exam - Vital Signs Last Vital Signs Temp Pulse Resp BP Pulse Ox 98 F 77 19 115/77 98 03/07/19 19:46 03/07/19 19:46 03/07/19 19:46 03/07/19 19:46 03/07/19 19:46 Medical Decision Making - Medical Decision Making 03/07/19 21:00 Patient with 2 weeks of cough and upper respiratory symptoms, history of asthma but lungs are clear, no signs of respiratory distress or hypoxia. No fever. Other families with flu symptoms with patient is long out of the window for any treatment. No other concerning clinical findings. Patient will get supportive instructions. Discussed issues, findings, results, applicable medications and treatments and follow-up. All these were understood and all questions were answered Discharge - Discharge Information Problems reviewed: Yes Clinical Impression/Diagnosis: URI (upper respiratory infection) Qualifiers: URI type: unspecified URI Qualified Code(s): J06.9 - Acute upper respiratory infection, unspecified Condition: Stable Disposition: HOME - Admission No - Follow up/Referral Referrals: Adam Malone [Primary Care Provider] - - Patient Discharge Instructions Patient Printed Discharge Instructions: DI for Viral Upper Respiratory Infection -- Adult Additional Instructions: Drink 2-3 L of water daily You can try Sudafed for your nasal congestion this will also help with the cough from the nasal congestion. Use your inhaler as needed for wheezing Take Tylenol 650 mg every 4 hours or Motrin 600 mg every 6 hours for fever and pain Return to the nearest ER if short of breath, unable to swallow or feeling sicker Followup with your doctor in one to 2 days - Post Discharge Activity
[2019-03-07 21:14] VITALS: BP 110/68; PULSE 78; TEMP 98
== END 2019-03-07 21:23 | disposition home or self-care (01) ==
LOC: JERFT 19:42
DX: J06.9 Acute upper respiratory infection, unspecified (principal); I10 Essential (primary) hypertension; Z87.09 Personal history of other diseases of the respiratory system; E16.1 Other hypoglycemia; G40.909 Epilepsy, unspecified, not intractable, without status epilepticus; Z86.2 Personal history of diseases of the blood and blood-forming organs and certain disorders involving the immune mechanism; E07.9 Disorder of thyroid, unspecified; Z91.041 Radiographic dye allergy status; Z91.018 Allergy to other foods; Z91.09 Other allergy status, other than to drugs and biological substances
CPT/HCPCS: 99281-25

== ENCOUNTER 2019-06-30 22:21 | Emergency (ER) | payer OTHER ==
[2019-06-30 22:30] VITALS: BP 113/76; PULSE 76; TEMP 97.8; BMI 26.7
[2019-06-30] MEDS ORDERED: KETOROLAC TROMETHAMINE 30 MG/1 ML VIAL IM ONE (23:02)
[2019-07-01] MEDS ORDERED: KETOROLAC TROMETHAMINE 30 MG/1 ML VIAL ONE (00:15)
[2019-07-01 01:32] LABS: PH,URINE 6.5 (5.0-8.0); URINE APPEARANCE CLEAR; URINE BILIRUBIN NEGATIVE (NEGATIVE); URINE COLOR YELLOW; URINE GLUCOSE (UA) NEGATIVE (NEGATIVE); URINE KETONE NEGATIVE (NEGATIVE); URINE LEUK ESTERASE NEGATIVE (NEGATIVE); URINE NITRITE NEGATIVE (NEGATIVE); URINE PROTEIN NEGATIVE (NEGATIVE)
== END 2019-07-01 01:50 | disposition home or self-care (01) ==
LOC: JER 22:21
PROC: 3E023GC Introduction of Other Therapeutic Substance into Muscle, Percutaneous Approach (ICD-10-PCS; principal; 2019-06-30)
DX: R51 Headache (principal)
CPT/HCPCS: 70450-TC; 81003; 82962; 84703; 96372; 99284-25

== ENCOUNTER 2019-11-13 16:24 | Emergency (ER) | payer OTHER ==
[2019-11-13 16:30] VITALS: TEMP 100.3; BMI 26.3
[2019-11-13] MEDS ORDERED: ACETAMINOPHEN 325 MG TABLET (FP) PO ONE (17:10)
[2019-11-13] MEDS ORDERED: ACETAMINOPHEN 325 MG TABLET (FP) ONE (17:20)
[2019-11-13] MEDS ORDERED: SODIUM CHLORIDE 0.9% 500 ML INFUS.BAG IV ONE (17:21)
[2019-11-13] MEDS ORDERED: morphine CARPU-JECT 4 MG/1 ML DISP.SYRIN IVPUSH ONE (17:21)
[2019-11-13] MEDS ORDERED: METOCLOPRAMIDE HCL INJECTION 10 MG/2 ML VIAL IVPUSH ONE (17:21)
--- NOTE | 2019-11-13 17:28 | PDOC ---
History of Present Illness - General Chief Complaint: Asthma Stated Complaint: ASTHMA Time Seen by Provider: 11/13/19 17:10 History Source: Patient Exam Limitations: No Limitations - History of Present Illness Initial Comments: 11/13/19 17:22 HPI Susan Mendosa is a 39F with PMH fibromyalgia, gastric bypass (2016) s/p jami alejandro (2018), X2, tubal ligation, migraines, chronic back pain s/p lumbar surgery, covid+ tested in May with most recent test is negative 1 month ago, presenting today with chest and arm pain, shortness of breath, dizziness, muscle/body aches, fever and headache x 2 days. Tmax 101. Pt states she feels there's "something compressing my chest and making my breathing difficult." Pt also admits to productive cough, with some mucus and some blood staining. Pt admits to having sinus infection, pressure in her face; she reports having frequent sinusitis. Pt states yesterday she was coughing hard and her ears started to bleed, +ear pain. denies trauma to ears. Denies palpitation, N, V, D, abdominal pain, bladder and bowel problems, focal weakness/paresthesias, leg swelling/pain, rash. No sick contacts or travel. No new changes in medications. Allergies: IV contrast, tape, mushroom Past Medical History/PSH: fibromyalgia, gastric bypass (2016) s/p tylerjohn avilesnaresh (2018), X2, tubal ligation, migraines, chronic back pain, s/p lumbar surgery, covid+ Social history: Lives with family. No tobacco, ETOH or drug use. Meds: as documented in EMR Family history: noncontributory Review of systems Constitutional: +fever and chills HEENT: +headache and dizziness. +sinus pressure, +congestion. +ear pain. +ear bleeding. CVS: no syncope. +chest pain. Resp: +sob. + cough. Gastrointestinal: no abdominal pain, nausea, vomiting, diarrhea. Genitourinary: no urinary sx, hematuria. MUSCULOSKELETAL: No joint pain and swelling. No neck or back pain. +myalgias. SKIN: no redness or skin changes, no discharge, no rash. No wounds. Hematologic: no easy bruising/bleeding. NEUROLOGIC: No LOC or altered mental status. No weakness, numbness or tingling. Psych: no anxiety or depression Allergic/Immunologic: no allergies All other systems reviewed and negative, or as documented in HPI. Physical exam General: crying, tearful, mild distress 2/2 pain. HEENT: NCAT, PERRL, EOMI, clear conjunctiva, anicteric, moist mucus membranes, clear oropharynx, no oral lesions.. b/l T.M clear. no effusion and no bleeding. +b/l maxillary sinus tenderness to percussion. Neck: neck supple, FROM Resp: CTAB, normal and even respirations, no respiratory distress CVS: RRR, no murmurs, 2+ peripheral pulses throughout, no peripheral edema Abdomen: soft, NTND, no rebound or guarding. No CVAT. Back: nontender, normal inspection and ROM MSK: no edema, MARTÍNEZ x4, ROM intact. No clubbing or cyanosis. normal bulk and tone. Extremities: no calf tenderness Neuro: alert, oriented appropriately; no focal neurologic deficits Psych: very anxious, tearful Skin: warm and well perfused, cap refill <2 sec, normal color 11/13/19 19:10 Past History - Medical History Allergies/Adverse Reactions: Allergies Allergy/AdvReac Type Severity Reaction Status Date / Time Iodinated Contrast Media Allergy Severe Swelling Verified 11/13/19 16:28 [Iodinated Contrast Media - IV Dye] mushroom Allergy Severe Rash Verified 11/13/19 16:28 adhesive tape Allergy Verified 11/13/19 16:28 Home Medications: Ambulatory Orders Gabapentin 100 mg PO HS 03/27/17 Oxycodone HCl/Acetaminophen [Percocet 5-325 mg Tablet] 1 tab PO Q6H PRN 02/10/18 Tizanidine HCl [Zanaflex (Nf)] 4 mg PO ASDIR 02/10/18 Back Brace [Ultra Support] 1 each MC ONCE #1 each 12/26/18 Ibuprofen 600 mg PO TID PRN #15 tablet 12/26/18 Cephalexin Monohydrate [Keflex -] 500 mg PO BID #14 capsule 01/15/19 Fluticasone Prop 0.05% Nasal [Flonase -] 1 - 2 spray NS DAILY #1 spray.pump 01/15/19 Ibuprofen 600 mg PO Q6H #30 tablet 01/15/19 Sulfamethoxazole/Trimethoprim [Bactrim Ds -] 1 tab PO BID #14 tablet 01/15/19 Famotidine [Pepcid] 40 mg PO DAILY #30 tablet 01/20/19 Anemia: Yes Asthma: Yes Cancer: No Cardiac Disorders: Yes CVA: No COPD: No CHF: No Dementia: No Diabetes: ("chronically hypoglycemic") GI Disorders: Yes Disorders: No HTN: Yes Hypercholesterolemia: No Liver Disease: No Seizures: Yes Thyroid Disease: Yes Other medical history: FIBRO - Surgical History Abdominal Surgery: No (UTERINE ABLATION) Appendectomy: No Cardiac Surgery: No Cholecystectomy: No GI Surgery: Yes (gastric bypass: 08/22/2015) Lung Surgery: No Neurologic Surgery: No - Reproductive History Is Patient Now?: No (#): 6 Para: 3 Tubal Ligation: Yes - Immunization History Td Vaccination: Yes TDAP Vaccination: Yes Immunization Up to Date: No - Psycho-Social/Smoking History Smoking Status: Yes Smoking History: Never smoked Have you smoked in the past 12 months: No Number of Cigarettes Smoked Daily: 0 Cigars Per Day: 0 - Substance Abuse Hx (Audit-C & DAST Scrn) How often the patient has a drink containing alcohol: Never Score: In Men: 4 or > Positive; In Women: 3 or > Positive: 0 Screen Result (Pos requires Nsg. Audit-10AR): Negative In the last yr the pt used illegal drug/Rx for NonMed reason: No Score: Yes response is considered Positive: 0 Screen Result (Positive result requires Nsg. DAST-10): Negative *Physical Exam - Vital Signs Last Vital Signs Temp Pulse Resp BP Pulse Ox 100.3 F H 123 H 20 126/78 96 11/13/19 16:28 11/13/19 16:28 11/13/19 16:28 11/13/19 16:28 11/13/19 16:28 ED Treatment Course - LABORATORY CBC & Chemistry Diagram: 11/13/19 17:50 11/13/19 17:50 - RADIOLOGY Radiology Studies Ordered: Category Date Time Status CHEST X-RAY PORTABLE* [RAD] Stat Radiology 11/13/19 17:20 Ordered Medical Decision Making - Medical Decision Making 11/13/19 17:28 Vital Signs Temp Pulse Resp BP Pulse Ox 100.3 F H 123 H 20 126/78 96 11/13/19 16:28 11/13/19 16:28 11/13/19 16:28 11/13/19 16:28 11/13/19 16:28 vitals reviewed +fever and tachycardic sats are normal on RA in distress, very anxious, c/o sob and chest pain, body aches. DDx chest pain: ACS, coronary vasospasm, NSTEMI, arrhythmia, unstable angina, PE, aortic dissection, PUD, esophageal spasm, GERD, gastritis, costochondritis, pneumonia, pleurisy, pericarditis/myocarditis. dehydration, electrolyte/metabolic derangements. needs labs/lytes, dimer, unlikely , as she has tubal ligation. no ocp use. labs and lytes wnl dimer is neg, reassuring, unlikely dissection or PE. HD appropriate. covid swab pending cxr is clear no acute pathology most likely viral etiology of her sx repeat VS and assess s/o to Dr Lopez pending reeval/ultimate dispo 11/13/19 19:10 11/13/19 19:11 Discharge - Discharge Information Problems reviewed: Yes Clinical Impression/Diagnosis: Viral syndrome, Chest pain Condition: Stable - Follow up/Referral Referrals: Adam Malone [Primary Care Provider] - - Patient Discharge Instructions - Post Discharge Activity
[2019-11-13] MEDS ORDERED: morphine SULFATE 4 MG/ML VIAL ONE (17:44)
[2019-11-13] MEDS ORDERED: METOCLOPRAMIDE HCL INJECTION 10 MG/2 ML VIAL ONE (17:44)
[2019-11-13 18:23] LABS: BASO % 0.4 % (0-2.0); EOS % 1.4 % (0-4.5); HEMATOCRIT 35.7 % (32.4-45.2); HEMOGLOBIN 11.8 GM/dL (10.7-15.3); LYMPH % 12.4 % (8-40); MCH 27.8 pg (25.7-33.7); MEAN CELL VOLUME 84.1 fl (80-96); MEAN PLT VOLUME 9.7 fl (7.5-11.1); NEUT % 78.8 % (42.8-82.8); PLATELET COUNT 192 K/MM3 (134-434); RBC 4.25 M/mm3 (3.60-5.2); RDW 13.8 % (11.6-15.6); WHITE BLOOD COUNT 7.8 K/mm3 (4.0-10.0)
[2019-11-13 19:15] LABS: ALBUMIN 3.8 g/dl (3.4-5.0); ALK PHOS 77 U/L (45-117); ANION GAP 5 MMOL/L (8-16); BILIRUBIN,TOTAL 0.4 mg/dL (0.2-1); BLOOD UREA NITROGEN 12.4 mg/dL (7-18); CALCIUM 8.5 mg/dL (8.5-10.1); CHLORIDE 106 mmol/L (98-107); CO2 27 mmol/L (21-32); CREATININE 0.9 mg/dL (0.55-1.3); GLUCOSE,RANDOM 81 mg/dL (74-106); MAGNESIUM 2.2 mg/dL (1.8-2.4); SGOT/AST 12 U/L (15-37); SGPT/ALT 15 U/L (13-61); SODIUM 138 mmol/L (136-145); TOT PROT 7.1 g/dl (6.4-8.2)
--- NOTE | 2019-11-13 19:34 | PDOC ---
*Physical Exam - Vital Signs Last Vital Signs Temp Pulse Resp BP Pulse Ox 100.3 F H 123 H 20 126/78 100 11/13/19 16:28 11/13/19 16:28 11/13/19 16:28 11/13/19 16:28 11/13/19 17:30 ED Treatment Course - LABORATORY CBC & Chemistry Diagram: 11/13/19 17:50 11/13/19 17:50 - ADDITIONAL ORDERS Additional order review: Laboratory Results 11/13/19 11/13/19 11/13/19 18:26 17:50 17:50 D-Dimer < 215 Sodium 138 Potassium 4.0 Chloride 106 Carbon Dioxide 27 Anion Gap 5 L BUN 12.4 Creatinine 0.9 Est GFR (CKD-EPI)AfAm 94.01 Est GFR (CKD-EPI)NonAf 81.11 Random Glucose 81 Calcium 8.5 Magnesium 2.2 Total Bilirubin 0.4 AST 12 L ALT 15 Alkaline Phosphatase 77 Troponin I < 0.02 Total Protein 7.1 Albumin 3.8 Serum , Qual Negative 11/13/19 17:50 RBC 4.25 MCV 84.1 MCHC 33.0 RDW 13.8 MPV 9.7 Neutrophils % 78.8 Lymphocytes % 12.4 D Monocytes % 7.0 Eosinophils % 1.4 Basophils % 0.4 - Medications Given in the ED: ED Medications Discontinued Medications Generic Name Dose Route Start Last Admin Trade Name Jackq PRN Reason Stop Dose Admin Acetaminophen 650 mg 11/13/19 17:10 11/13/19 17:23 Tylenol - PO 11/13/19 17:11 650 mg ONCE ONE Administration Metoclopramide HCl 10 mg 11/13/19 17:21 11/13/19 17:58 Reglan Injection - IVPUSH 11/13/19 17:22 10 mg ONCE ONE Administration Morphine Sulfate 4 mg 11/13/19 17:21 11/13/19 17:58 Morphine Injection - IVPUSH 11/13/19 17:22 4 mg ONCE ONE Administration Sodium Chloride 1,000 ml 11/13/19 17:21 11/13/19 17:58 Normal Saline - IV 11/13/19 17:22 1,000 ml ONCE ONE Administration Medical Decision Making - Medical Decision Making 11/13/19 19:21 Pt signed out to me; fever; SOB; CP; tachy sign out believes she has viral issue 11/13/19 19:55 Pt has normal labs, normal D-Dimer normal CXR She has normal vitals at this time 11/13/19 22:27 Pt will be treated for sinusitis and she will be discharged home. First dose of abx in the ER Discharge - Discharge Information Problems reviewed: Yes Clinical Impression/Diagnosis: Chest pain, Sinusitis Condition: Stable Disposition: HOME - Admission No - Additional Discharge Information Prescriptions: Lidocaine 5% Patch [Lidoderm Patch -] 1 patch TP DAILY #30 patch Azithromycin [Zithromax Tri-Alexandru (3 DAYS) -] 500 mg PO DAILY #3 tablet - Follow up/Referral Referrals: Adam Malone [Primary Care Provider] - - Patient Discharge Instructions Patient Printed Discharge Instructions: DI for Sinusitis - Post Discharge Activity
[2019-11-13 19:54] LABS: URINE APPEARANCE CLEAR; URINE BILIRUBIN NEGATIVE (NEGATIVE); URINE COLOR YELLOW; URINE GLUCOSE (UA) NEGATIVE (NEGATIVE); URINE KETONE TRACE (NEGATIVE); URINE LEUK ESTERASE NEGATIVE (NEGATIVE); URINE NITRITE NEGATIVE (NEGATIVE); URINE PROTEIN NEGATIVE (NEGATIVE)
[2019-11-13] MEDS ORDERED: AZITHROMYCIN IVPB 500 MG in DEXTROSE 5%-WATER - 250 ML IVPB ONE (20:06)
[2019-11-13] MEDS ORDERED: LIDOCAINE 5% TOPICAL PATCH TP ONE (20:07)
[2019-11-13] MEDS ORDERED: LIDOCAINE VISCOUS 2% ORAL/TOP 20 ML UNIT-DOSE CUP MM ONE (20:07)
[2019-11-13] MEDS ORDERED: AZITHROMYCIN IVPB 500 MG/250 ML BAG IVPB ONE (20:29)
[2019-11-13] MEDS ORDERED: LIDOCAINE VISCOUS 2% ORAL/TOP 20 ML UNIT-DOSE CUP ONE (20:29)
[2019-11-13] MEDS ORDERED: LIDOCAINE PATCH REMOVAL MC SCH (22:00)
[2019-11-14 01:17] VITALS: BP 112/80; PULSE 78
== END 2019-11-13 21:00 | disposition home or self-care (01) ==
LOC: JER 16:24
PROC: 3E02329 Introduction of Other Anti-infective into Muscle, Percutaneous Approach (ICD-10-PCS; principal; 2019-11-13)
PROC: 3E033GC Introduction of Other Therapeutic Substance into Peripheral Vein, Percutaneous Approach (ICD-10-PCS; 2019-11-13)
DX: R07.9 Chest pain, unspecified (principal); J06.9 Acute upper respiratory infection, unspecified
CPT/HCPCS: 36415; 71045-TC-FY; 80053; 81003; 83735; 84484; 84703; 85025; 85379; 99285-25; U0003

== ENCOUNTER 2019-12-19 14:30 | Emergency (ER) | payer OTHER ==
[2019-12-19 14:46] VITALS: BP 93/56; PULSE 76; TEMP 98; BMI 27.0
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
[2019-12-19] MEDS ORDERED: ACETAMINOPHEN 500 MG TABLET (FP) PO ONE (15:12)
--- NOTE | 2019-12-19 15:15 | PDOC ---
History of Present Illness - General Chief Complaint: Injury Stated Complaint: ANKLE PAIN Time Seen by Provider: 12/19/19 14:52 History Source: Patient Exam Limitations: No Limitations - History of Present Illness Initial Comments: 12/19/19 15:13 31-year-old female past medical history of fibromyalgia presented to the ED with right ankle pain. Patient states she was walking on steps and on the second to last step she tripped fell inverting her right ankle. Patient denies head trauma or loss consciousness and states the fall was strictly mechanical. Patient is complaining of 7-10 constant right lateral ankle pain worse with ambulation. Pt otherwise denies: fevers, chills, syncope, lightheadedness, dizziness, headaches, neck pain, chest pain, shortness of breath, palpitations, back pain, abdominal pain, nausea, vomiting, diarrhea, constipation. Past History - Medical History Allergies/Adverse Reactions: Allergies Allergy/AdvReac Type Severity Reaction Status Date / Time Iodinated Contrast Media Allergy Severe Swelling Verified 12/19/19 14:43 [Iodinated Contrast Media - IV Dye] mushroom Allergy Severe Rash Verified 12/19/19 14:43 adhesive tape Allergy Verified 12/19/19 14:43 Home Medications: Ambulatory Orders Gabapentin 100 mg PO HS 03/27/17 Oxycodone HCl/Acetaminophen [Percocet 5-325 mg Tablet] 1 tab PO Q6H PRN 02/10/18 Tizanidine HCl [Zanaflex (Nf)] 4 mg PO ASDIR 02/10/18 Back Brace [Ultra Support] 1 each MC ONCE #1 each 12/26/18 Ibuprofen 600 mg PO TID PRN #15 tablet 12/26/18 Cephalexin Monohydrate [Keflex -] 500 mg PO BID #14 capsule 01/15/19 Fluticasone Prop 0.05% Nasal [Flonase -] 1 - 2 spray NS DAILY #1 spray.pump 1 03/17/18 Ibuprofen 600 mg PO Q6H #30 tablet 01/15/19 Sulfamethoxazole/Trimethoprim [Bactrim Ds -] 1 tab PO BID #14 tablet 01/15/19 Famotidine [Pepcid] 40 mg PO DAILY #30 tablet 01/20/19 Azithromycin [Zithromax Tri-Alexandru (3 DAYS) -] 500 mg PO DAILY #3 tablet 11/13/19 Lidocaine 5% Patch [Lidoderm Patch -] 1 patch TP DAILY #30 patch 11/13/19 Anemia: Yes Asthma: Yes Cancer: No Cardiac Disorders: Yes CVA: No COPD: No CHF: No Dementia: No Diabetes: ("chronically hypoglycemic") GI Disorders: Yes Disorders: No HTN: Yes Hypercholesterolemia: No Liver Disease: No Seizures: Yes Thyroid Disease: Yes - Surgical History Abdominal Surgery: No (UTERINE ABLATION) Appendectomy: No Cardiac Surgery: No Cholecystectomy: No GI Surgery: Yes (gastric bypass: 08/22/2015) Lung Surgery: No Neurologic Surgery: No - Reproductive History Is Patient Now?: No (#): 6 Para: 3 Tubal Ligation: Yes - Immunization History Td Vaccination: Yes TDAP Vaccination: Yes Immunization Up to Date: No - Psycho-Social/Smoking History Smoking Status: Yes Smoking History: Never smoked Have you smoked in the past 12 months: No Number of Cigarettes Smoked Daily: 0 Cigars Per Day: 0 - Substance Abuse Hx (Audit-C & DAST Scrn) How often the patient has a drink containing alcohol: Never Score: In Men: 4 or > Positive; In Women: 3 or > Positive: 0 Screen Result (Pos requires Nsg. Audit-10AR): Negative *Physical Exam - Vital Signs Last Vital Signs Temp Pulse Resp BP Pulse Ox 98.0 F 76 18 93/56 L 99 12/19/19 14:43 12/19/19 14:43 12/19/19 14:43 12/19/19 14:43 12/19/19 14:43 - Physical Exam 12/19/19 15:13 Gen: AAOx 3, no acute distress, comfortable, no signs of respiratory distress CV: RRR no murmurs, gallops, or rubs. CHEST: CTA b/l no wheezing, rales or rhonchi ABD: +BS/ND. no TTP; soft, no rebound, no guarding EXTREMITY: no cyanosis or erythema. 2+ dorsalis pedis, posterior tibial, and radial pulse. No pedal edema; no calf swelling or tenderness SKIN: no rash, warm and dry, no diaphoresis HEME: no purpura or ecchymosis NEURO: normal speech, CN II-XII intact, sensation intact, normal gait, no cerebellar deficits MS: 5/5 strength in all extremities, FROM intact in all extremities. Right ankle and foot: Tenderness palpation over the lateral aspect of the ankle with swelling, sensation intact from with decreased strength secondary to pain ED Treatment Course - RADIOLOGY Radiology Studies Ordered: Category Date Time Status ANKLE & FOOT-RIGHT* [RAD] Stat Radiology 12/19/19 15:12 Ordered Medical Decision Making - Medical Decision Making 12/19/19 15:14 39-year-old female with right ankle injury Vital signs stable We will give Tylenol for pain and x-ray ankle foot Will reassess based on results X-ray negative for any acute findings Patient ankle wrapped with Alvino neurovascularly intact postprocedure Patient provided crutches for support Patient to follow-up with Ortho and PCP Pt appears well and is safe and stable for discharge with strict return precautions including signs and symptoms requring immediate return to the ED Supportive care instructions explained and given to pt. Reasons to return emergently to ER explained and given. Importance of follow up with PMD and other specialists as indicated stressed to pt. Pt verbalized understanding of instructions. Pt to follow up with PMD in 2 days. Discharge - Discharge Information Problems reviewed: Yes Clinical Impression/Diagnosis: Ankle sprain Qualifiers: Encounter type: initial encounter Involved ligament of ankle: unspecified ligament Laterality: right Qualified Code(s): S93.401A - Sprain of unspecified ligament of right ankle, initial encounter Condition: Stable Disposition: HOME - Follow up/Referral Referrals: Adam Malone [Primary Care Provider] - - Patient Discharge Instructions Patient Printed Discharge Instructions: DI for Ankle Sprain - Post Discharge Activity
[2019-12-19] MEDS ORDERED: ACETAMINOPHEN 325 MG TABLET (FP) ONE (15:17)
== END 2019-12-19 15:46 | disposition home or self-care (01) ==
LOC: JERFT 14:30
DX: S93.401A Sprain of unspecified ligament of right ankle, initial encounter (principal)
CPT/HCPCS: 73610-TC-RT-FY; 73630-TC-RT-FY; 99283-25

== ENCOUNTER 2020-01-22 05:21 | Emergency (ER) | payer OTHER ==
[2020-01-22 05:34] VITALS: BMI 29.0
[2020-01-22] MEDS ORDERED: ONDANSETRON 4 MG/2 ML VIAL IVPUSH ONE (05:54)
[2020-01-22] MEDS ORDERED: FAMOTIDINE 20 MG/50 ML IVPB 20 MG/50 ML MG IVPB ONE ×2 (05:54→06:17)
[2020-01-22] MEDS ORDERED: LACTATED RINGERS SOLUTION 1,000 ML/1,000 ML INFUS.BAG IV STA (05:54)
[2020-01-22] MEDS ORDERED: PANTOPRAZOLE SODIUM 40 MG VIAL IVPUSH ONE (05:54)
[2020-01-22] MEDS ORDERED: ACETAMINOPHEN 1000 MG/100 ML VIAL (NON FORMULARY) IVPB ONE (05:56)
[2020-01-22] MEDS ORDERED: ACETAMINOPHEN INJECTION 100 ML IVPB ONE (06:16)
[2020-01-22] MEDS ORDERED: PANTOPRAZOLE SODIUM 40 MG VIAL ONE (06:17)
[2020-01-22 07:18] LABS: HEMATOCRIT 35.2 % (32.4-45.2); HEMOGLOBIN 11.4 GM/dL (10.7-15.3); MCH 26.8 pg (25.7-33.7); MCHC 32.5 g/dl (32.0-36.0); MEAN CELL VOLUME 82.3 fl (80-96); MEAN PLT VOLUME 9.9 fl (7.5-11.1); PLATELET COUNT 204 K/MM3 (134-434); RBC 4.27 M/mm3 (3.60-5.2); RDW 13.7 % (11.6-15.6); WHITE BLOOD COUNT 8.7 K/mm3 (4.0-10.0)
[2020-01-22 07:25] LABS: POTASSIUM 4.1 mmol/L (3.5-5.1)
[2020-01-22 07:27] LABS: CALCIUM 8.6 mg/dL (8.5-10.1)
[2020-01-22 07:28] LABS: ALBUMIN 3.6 g/dl (3.4-5.0); BLOOD UREA NITROGEN 14.8 mg/dL (7-18)
[2020-01-22 07:31] LABS: CREATININE 0.8 mg/dL (0.55-1.3)
[2020-01-22 07:32] LABS: BILIRUBIN,TOTAL 0.3 mg/dL (0.2-1)
[2020-01-22 10:04] LABS: PH,URINE 6.5 (5.0-8.0); URINE APPEARANCE CLEAR; URINE BILIRUBIN NEGATIVE (NEGATIVE); URINE COLOR YELLOW; URINE GLUCOSE (UA) NEGATIVE (NEGATIVE); URINE KETONE NEGATIVE (NEGATIVE); URINE LEUK ESTERASE NEGATIVE (NEGATIVE); URINE NITRITE NEGATIVE (NEGATIVE); URINE PROTEIN NEGATIVE (NEGATIVE)
[2020-01-22 12:04] VITALS: BP 115/75; PULSE 72; TEMP 98.4
== END 2020-01-22 12:04 | disposition home or self-care (01) ==
LOC: JER 05:21
PROC: 3E033NZ Introduction of Analgesics, Hypnotics, Sedatives into Peripheral Vein, Percutaneous Approach (ICD-10-PCS; principal; 2020-01-22)
PROC: 3E0337Z Introduction of Electrolytic and Water Balance Substance into Peripheral Vein, Percutaneous Approach (ICD-10-PCS; 2020-01-22)
PROC: 3E033GC Introduction of Other Therapeutic Substance into Peripheral Vein, Percutaneous Approach (ICD-10-PCS; 2020-01-22)
DX: R10.9 Unspecified abdominal pain (principal)
CPT/HCPCS: 36415; 80053; 81003; 83690; 84703; 85027; 99285-25; J0131

== ENCOUNTER 2020-06-20 18:40 | Emergency (ER) | payer OTHER ==
[2020-06-20 19:15] VITALS: BP 114/74; PULSE 89; TEMP 98.6; BMI 27.3
== END 2020-06-20 20:36 | disposition home or self-care (01) ==
LOC: JER 18:40
DX: J01.91 Acute recurrent sinusitis, unspecified (principal)
CPT/HCPCS: 99281-25

== ENCOUNTER 2020-10-09 17:37 | Emergency (ER) | payer OTHER ==
[2020-10-09 18:08] VITALS: BP 108/69; PULSE 70; TEMP 97; BMI 27.0
== END 2020-10-09 22:15 | disposition home or self-care (01) ==
LOC: JER 17:37
DX: I80.203 Phlebitis and thrombophlebitis of unspecified deep vessels of lower extremities, bilateral (principal)
CPT/HCPCS: 93970-TC; 99283-25

== ENCOUNTER 2020-10-12 02:33 | Emergency (ER) | payer OTHER ==
[2020-10-12 02:59] VITALS: BP 106/69; PULSE 65; TEMP 97.9; BMI 26.9
[2020-10-12] MEDS ORDERED: FAMOTIDINE 20 MG/50 ML IVPB 20 MG/50 ML MG IVPB ONE ×2 (03:16→03:38)
[2020-10-12] MEDS ORDERED: SODIUM CHLORIDE 0.9% 500 ML INFUS.BAG IV ONE (03:16)
[2020-10-12 04:09] LABS: BASO % 0.4 % (0-2.0); EOS % 1.5 % (0-4.5); HEMATOCRIT 36.3 % (32.4-45.2); LYMPH % 13.8 % (8-40); MCH 26.6 pg (25.7-33.7); MCHC 33.1 g/dl (32.0-36.0); MEAN CELL VOLUME 80.2 fl (80-96); MEAN PLT VOLUME 9.8 fl (7.5-11.1); NEUT % 78.3 % (42.8-82.8); PLATELET COUNT 240 10^3/uL (134-434); RBC 4.53 M/mm3 (3.60-5.2); RDW 14.2 % (11.6-15.6); WHITE BLOOD COUNT 10.7 K/mm3 (4.0-10.0)
[2020-10-12 04:30] LABS: CHLORIDE 105 mmol/L (98-107); SODIUM 137 mmol/L (136-145)
[2020-10-12 04:32] LABS: CALCIUM 8.8 mg/dL (8.5-10.1)
[2020-10-12 04:33] LABS: ALBUMIN 4.2 g/dl (3.4-5.0); ANION GAP 6 MMOL/L (8-16); BLOOD UREA NITROGEN 14.2 mg/dL (7-18); CO2 26 mmol/L (21-32); GLUCOSE,RANDOM 86 mg/dL (74-106); LIPASE 76 U/L (73-393); MAGNESIUM 2.3 mg/dL (1.8-2.4)
[2020-10-12] MEDS ORDERED: ACETAMINOPHEN 1000 MG/100 ML VIAL (NON FORMULARY) IVPB ONE (04:34)
[2020-10-12 04:36] LABS: CREATININE 0.9 mg/dL (0.55-1.3); SGOT/AST 13 U/L (15-37); SGPT/ALT 22 U/L (13-61)
[2020-10-12] MEDS ORDERED: ACETAMINOPHEN INJECTION 100 ML IVPB ONE (04:36)
[2020-10-12 04:37] LABS: BILIRUBIN,TOTAL 0.3 mg/dL (0.2-1); TOT PROT 7.9 g/dl (6.4-8.2)
[2020-10-12 04:38] LABS: ALK PHOS 84 U/L (45-117)
== END 2020-10-12 05:48 | disposition home or self-care (01) ==
LOC: JER 02:33
PROC: 3E0333Z Introduction of Anti-inflammatory into Peripheral Vein, Percutaneous Approach (ICD-10-PCS; principal; 2020-10-12)
PROC: 3E033GC Introduction of Other Therapeutic Substance into Peripheral Vein, Percutaneous Approach (ICD-10-PCS; 2020-10-12)
DX: R07.89 Other chest pain (principal)
CPT/HCPCS: 36415; 71045-TC-FY; 80053; 82550; 83690; 83735; 84484; 85025; 93005; 93010; 99285-25; J0131

== ENCOUNTER 2020-10-29 11:25 | Emergency (ER) | payer OTHER ==
[2020-10-29 11:31] VITALS: BP 96/64; PULSE 66; TEMP 98; BMI 27.3
[2020-10-29] MEDS ORDERED: KETOROLAC TROMETHAMINE 60 MG/2 ML VIAL IM ONE (12:38)
[2020-10-29] MEDS ORDERED: KETOROLAC TROMETHAMINE 60 MG/2 ML VIAL ONE (12:42)
== END 2020-10-29 13:30 | disposition home or self-care (01) ==
LOC: JER 11:25
PROC: 3E023GC Introduction of Other Therapeutic Substance into Muscle, Percutaneous Approach (ICD-10-PCS; principal; 2020-10-29)
DX: M79.10 Myalgia, unspecified site (principal)
CPT/HCPCS: 82962; 96372; 99284-25

== ENCOUNTER 2020-11-21 10:42 | Emergency (ER) | payer OTHER ==
[2020-11-21 11:10] VITALS: BP 110/59; PULSE 71; TEMP 98.4; BMI 27.3
[2020-11-21] MEDS ORDERED: ONDANSETRON *ODT* 4 MG TABLET SL ONE (12:05)
[2020-11-21] MEDS ORDERED: KETOROLAC TROMETHAMINE 60 MG/2 ML VIAL IM ONE (12:05)
[2020-11-21] MEDS ORDERED: ONDANSETRON *ODT* 4 MG TABLET ONE (12:06)
[2020-11-21] MEDS ORDERED: KETOROLAC TROMETHAMINE 60 MG/2 ML VIAL ONE (12:06)
[2020-11-21 12:42] LABS: BASO % 0.5 % (0-2.0); EOS % 1.9 % (0-4.5); HEMATOCRIT 36.5 % (32.4-45.2); HEMOGLOBIN 12.2 GM/dL (10.7-15.3); LYMPH % 20.9 % (8-40); MCH 26.8 pg (25.7-33.7); MCHC 33.3 g/dl (32.0-36.0); MEAN CELL VOLUME 80.3 fl (80-96); MEAN PLT VOLUME 9.3 fl (7.5-11.1); MONO % 5.9 % (3.8-10.2); NEUT % 70.8 % (42.8-82.8); PLATELET COUNT 239 10^3/uL (134-434); RBC 4.55 M/mm3 (3.60-5.2); RDW 14.2 % (11.6-15.6); WHITE BLOOD COUNT 8.2 K/mm3 (4.0-10.0)
[2020-11-21 13:47] LABS: CALCIUM 9.3 mg/dL (8.5-10.1)
[2020-11-21 13:49] LABS: ALBUMIN 4.2 g/dl (3.4-5.0); BLOOD UREA NITROGEN 15.9 mg/dL (7-18); MAGNESIUM 2.3 mg/dL (1.8-2.4)
[2020-11-21 13:51] LABS: CREATININE 0.9 mg/dL (0.55-1.3)
[2020-11-21 13:52] LABS: URINE APPEARANCE CLEAR; URINE BILIRUBIN NEGATIVE (NEGATIVE); URINE COLOR YELLOW; URINE GLUCOSE (UA) NEGATIVE (NEGATIVE); URINE KETONE NEGATIVE (NEGATIVE); URINE LEUK ESTERASE NEGATIVE (NEGATIVE); URINE NITRITE NEGATIVE (NEGATIVE); URINE PROTEIN NEGATIVE (NEGATIVE)
[2020-11-21 13:53] LABS: BILIRUBIN,TOTAL 0.5 mg/dL (0.2-1)
== END 2020-11-21 14:04 | disposition home or self-care (01) ==
LOC: JERFT 10:42
PROC: 3E023GC Introduction of Other Therapeutic Substance into Muscle, Percutaneous Approach (ICD-10-PCS; principal; 2020-11-21)
DX: M54.41 Lumbago with sciatica, right side (principal); R10.11 Right upper quadrant pain
CPT/HCPCS: 36415; 76705-TC; 80053; 81003; 83690; 83735; 85025; 87086; 96372; 99284-25; Q0162

== ENCOUNTER 2021-01-06 20:42 | Emergency (ER) | payer OTHER ==
[2021-01-06 20:49] VITALS: TEMP 98; BMI 27.3
[2021-01-06] MEDS ORDERED: morphine CARPU-JECT 4 MG/1 ML DISP.SYRIN IVPUSH ONE (21:59)
[2021-01-06] MEDS ORDERED: morphine SULFATE 4 MG/ML VIAL ONE (22:22)
[2021-01-06 22:50] LABS: BASO % 1.1 % (0-2.0); EOS % 2.2 % (0-4.5); HEMATOCRIT 30.7 % (32.4-45.2); HEMOGLOBIN 10.4 GM/dL (10.7-15.3); MCH 26.1 pg (25.7-33.7); MCHC 33.9 g/dl (32.0-36.0); MEAN CELL VOLUME 76.9 fl (80-96); MEAN PLT VOLUME 8.5 fl (7.5-11.1); MONO % 6.9 % (3.8-10.2); NEUT % 65.8 % (42.8-82.8); PLATELET COUNT 231 10^3/uL (134-434); RBC 3.99 M/mm3 (3.60-5.2); RDW 14.7 % (11.6-15.6); WHITE BLOOD COUNT 7.3 K/mm3 (4.0-10.0)
[2021-01-06 22:52] LABS: PH,URINE 6.5 (5.0-8.0); URINE APPEARANCE CLEAR; URINE BILIRUBIN NEGATIVE (NEGATIVE); URINE COLOR ORANGE; URINE GLUCOSE (UA) NEGATIVE (NEGATIVE); URINE KETONE NEGATIVE (NEGATIVE); URINE LEUK ESTERASE NEGATIVE (NEGATIVE); URINE NITRITE NEGATIVE (NEGATIVE); URINE PROTEIN NEGATIVE (NEGATIVE)
[2021-01-06 22:54] LABS: HCG,QUALITATIVE URINE Negative
[2021-01-06 23:10] LABS: CALCIUM 8.6 mg/dL (8.5-10.1)
[2021-01-06 23:11] LABS: ALBUMIN 3.3 g/dl (3.4-5.0); BLOOD UREA NITROGEN 13.7 mg/dL (7-18)
[2021-01-06 23:13] LABS: CREATININE 0.8 mg/dL (0.55-1.3)
[2021-01-06 23:15] LABS: BILIRUBIN,TOTAL 0.2 mg/dL (0.2-1); TOT PROT 6.4 g/dl (6.4-8.2)
[2021-01-07] MEDS ORDERED: HYDROmorphone HCL CARPU-JECT 2 MG/1 ML DISP.SYRIN IVPUSH ONE (01:10)
[2021-01-07] MEDS ORDERED: HYDROmorphone HCl 2 MG/ML VIAL ONE (01:12)
[2021-01-07 02:48] VITALS: BP 100/62; PULSE 89
== END 2021-01-07 02:49 | disposition home or self-care (01) ==
LOC: JER 20:42
PROC: 3E033NZ Introduction of Analgesics, Hypnotics, Sedatives into Peripheral Vein, Percutaneous Approach (ICD-10-PCS; principal; 2021-01-06)
PROC: 3E033GC Introduction of Other Therapeutic Substance into Peripheral Vein, Percutaneous Approach (ICD-10-PCS; 2021-01-06)
DX: R10.11 Right upper quadrant pain (principal)
CPT/HCPCS: 36415; 74176-TC; 76700-TC; 80053; 81003; 83690; 84703; 85025; 87086; 96374; 96375; 99284-25

== ENCOUNTER 2021-04-02 14:30 | Emergency (ER) | payer OTHER ==
[2021-04-02 14:59] VITALS: TEMP 97.9; BMI 27.3
[2021-04-02] MEDS ORDERED: SODIUM CHLORIDE 0.9% 500 ML INFUS.BAG IV ONE (15:20)
[2021-04-02] MEDS ORDERED: KETOROLAC TROMETHAMINE 30 MG/1 ML VIAL IVPUSH ONE (15:20)
[2021-04-02] MEDS ORDERED: FAMOTIDINE 20 MG/50 ML IVPB 20 MG/50 ML MG IVPB ONE ×2 (15:22→15:32)
[2021-04-02] MEDS ORDERED: KETOROLAC TROMETHAMINE 30 MG/1 ML VIAL ONE (15:31)
[2021-04-02] MEDS ORDERED: ACETAMINOPHEN 1000 MG/100 ML BAG IVPB ONE (15:32)
[2021-04-02] MEDS ORDERED: ACETAMINOPHEN INJECTION 100 ML IVPB ONE (15:35)
[2021-04-02 15:52] LABS: BASO % 0.3 % (0-2.0); LYMPH % 9.8 % (8-40); MCH 23.6 pg (25.7-33.7); MCHC 31.3 g/dl (32.0-36.0); MEAN CELL VOLUME 75.5 fl (80-96); MEAN PLT VOLUME 8.8 fl (7.5-11.1); MONO % 7.7 % (3.8-10.2); NEUT % 81.2 % (42.8-82.8); PLATELET COUNT 183 10^3/uL (134-434); RBC 4.64 M/mm3 (3.60-5.2); RDW 15.2 % (11.6-15.6); WHITE BLOOD COUNT 12.1 K/mm3 (4.0-10.0)
[2021-04-02 16:09] LABS: URINE APPEARANCE CLOUDY; URINE BILIRUBIN MODERATE (NEGATIVE); URINE COLOR DK YELLOW; URINE GLUCOSE (UA) NEGATIVE (NEGATIVE); URINE KETONE 15 mg/dl (NEGATIVE)
[2021-04-02 16:10] LABS: URINE LEUK ESTERASE 1+ (NEGATIVE); URINE NITRITE POSITIVE (NEGATIVE); URINE PROTEIN 1+ (NEGATIVE)
[2021-04-02 16:12] LABS: EPI CELLS 46.1 /uL (0-25.1); HYALINE CASTS 8.46 /uL (0-3.1); URINE RBC 49.2 /uL (0-23.9); URINE WBC 11.7 /uL (0-25.8)
[2021-04-02 16:17] LABS: URINE CRYSTALS CA OXALATE /hpf
[2021-04-02 16:24] LABS: CALCIUM 9.5 mg/dL (8.5-10.1)
[2021-04-02 16:25] LABS: ALBUMIN 4.2 g/dl (3.4-5.0); BLOOD UREA NITROGEN 11.8 mg/dL (7-18); MAGNESIUM 2.2 mg/dL (1.8-2.4)
[2021-04-02 16:28] LABS: CREATININE 0.9 mg/dL (0.55-1.3)
[2021-04-02 16:29] LABS: BILIRUBIN,TOTAL 0.7 mg/dL (0.2-1)
[2021-04-02 17:03] VITALS: BP 107/70; PULSE 69
== END 2021-04-02 17:20 | disposition home or self-care (01) ==
LOC: JERFT 14:30 → JER 14:30 → JERFT 17:20
PROC: 3E033GC Introduction of Other Therapeutic Substance into Peripheral Vein, Percutaneous Approach (ICD-10-PCS; principal; 2021-04-02)
DX: R10.13 Epigastric pain (principal); M62.838 Other muscle spasm
CPT/HCPCS: 36415; 80053; 81003; 83735; 85025; 96365; 96375; 99284-25; J0131

== ENCOUNTER 2021-07-04 11:54 | Emergency (ER) | payer OTHER ==
[2021-07-04 12:03] VITALS: BP 111/63; PULSE 86; TEMP 98; BMI 27.3
[2021-07-05 10:07] LABS: SARS-CoV-2 NAA Not Detected (Not Detected)
== END 2021-07-04 14:22 | disposition home or self-care (01) ==
LOC: JER 11:54
DX: J01.91 Acute recurrent sinusitis, unspecified (principal); J06.9 Acute upper respiratory infection, unspecified
CPT/HCPCS: 87651; 87804; 99283-25; C9803-CS; U0003; U0005

== ENCOUNTER 2021-07-31 01:13 | Inpatient (IN) | payer OTHER ==
[2021-07-31 02:22] LABS: BASO % 1.1 % (0-2.0); EOS % 2.6 % (0-4.5); HEMATOCRIT 26.2 % (32.4-45.2); HEMOGLOBIN 8.3 GM/dL (10.7-15.3); MCH 23.4 pg (25.7-33.7); MCHC 31.7 g/dl (32.0-36.0); MEAN CELL VOLUME 73.6 fl (80-96); MEAN PLT VOLUME 8.9 fl (7.5-11.1); MONO % 7.7 % (3.8-10.2); NEUT % 58.6 % (42.8-82.8); PLATELET COUNT 217 10^3/uL (134-434); RBC 3.56 M/mm3 (3.60-5.2); RDW 16.3 % (11.6-15.6); WHITE BLOOD COUNT 7.1 K/mm3 (4.0-10.0)
[2021-07-31] MEDS ORDERED: NALOXONE HCL 0.4 MG/ML VIAL IVPUSH ONE (02:25)
[2021-07-31 02:44] LABS: ALBUMIN 3.2 g/dl (3.4-5.0); BLOOD UREA NITROGEN 17.9 mg/dL (7-18); MAGNESIUM 2.1 mg/dL (1.8-2.4)
[2021-07-31 02:47] LABS: CREATININE 0.8 mg/dL (0.55-1.3)
[2021-07-31 02:48] LABS: BILIRUBIN,TOTAL 0.3 mg/dL (0.2-1)
[2021-07-31 02:49] LABS: TOT PROT 5.9 g/dl (6.4-8.2)
[2021-07-31] MEDS ORDERED: MAGNESIUM SULF 50% (8.12 MEQ/2 ML-1 GM VIAL) IVPB ONE (02:58)
[2021-07-31] MEDS ORDERED: SODIUM CHLORIDE 1,000 ML IV SCH (05:45)
[2021-07-31] MEDS ORDERED: PANTOPRAZOLE 40 MG TABLET PO ONE (09:27)
[2021-07-31] MEDS ORDERED: PANTOPRAZOLE 40 MG TABLET PO SCH (10:00)
[2021-07-31] MEDS ORDERED: ONDANSETRON 4 MG/2 ML VIAL IVPUSH ONE (13:34)
[2021-07-31] MEDS ORDERED: MAG HYDROX/AL HYDROX/SIMETH 30 ML UNIT-DOSE CUP PO PRN (13:34)
[2021-07-31] MEDS ORDERED: oxyCODONE HCL 5 MG TABLET ONE (14:11)
[2021-07-31] MEDS ORDERED: oxyCODONE HCL 5 MG TABLET PO ONE (14:15)
[2021-07-31 14:38] LABS: URINE APPEARANCE CLEAR; URINE BILIRUBIN NEGATIVE (NEGATIVE); URINE COLOR YELLOW; URINE GLUCOSE (UA) NEGATIVE (NEGATIVE); URINE KETONE NEGATIVE (NEGATIVE); URINE LEUK ESTERASE NEGATIVE (NEGATIVE); URINE NITRITE NEGATIVE (NEGATIVE); URINE PROTEIN NEGATIVE (NEGATIVE)
[2021-07-31 14:56] LABS: PHENCYCLIDINE,URINE NEGATIVE (NEGATIVE)
[2021-07-31 14:57] LABS: METHADONE, UR NEGATIVE (NEGATIVE); OPIATES, URI NEGATIVE (NEGATIVE); URINE AMPHETAMINES NEGATIVE (NEGATIVE); URINE BARBITURATES NEGATIVE (NEGATIVE)
[2021-07-31 14:59] LABS: COCAINE, UR NEGATIVE (NEGATIVE); URINE BENZODIAZEPINES NEGATIVE (NEGATIVE)
[2021-07-31] MEDS ORDERED: MONTELUKAST NA 10 MG TABLET PO SCH (22:00)
[2021-07-31 22:15] VITALS: BMI 31.1
[2021-07-31] MEDS ORDERED: MELATONIN 5 MG TABLETS PO ONE (23:58)
[2021-08-01] MEDS ORDERED: MELATONIN 5 MG TABLETS PO ONE (01:47)
[2021-08-01] MEDS ORDERED: oxyCODONE HCL 5 MG TABLET PO ONE (01:47)
[2021-08-01 03:57] VITALS: BP 98/61; PULSE 60; TEMP 97.7
[2021-08-01] MEDS ORDERED: FAMOTIDINE 20 MG TABLET PO SCH (10:00)
== END 2021-08-01 04:35 | disposition left against medical advice (07) | DRG 101 ==
LOC: JER 01:13 → JERBED 04:10 → J4W 21:47
PROVIDERS: ADMIT Internal Medicine; ATTEND Nurse Practitioner Acute Care
DX: R56.9 Unspecified convulsions (principal); E03.9 Hypothyroidism, unspecified; F31.9 Bipolar disorder, unspecified; D64.9 Anemia, unspecified; E78.5 Hyperlipidemia, unspecified; M54.9 Dorsalgia, unspecified; M79.7 Fibromyalgia; G89.29 Other chronic pain; I95.9 Hypotension, unspecified
CPT/HCPCS: 36415; 70450-TC; 70551-TC; 71250-TC; 80053; 80307; 81003; 82962; 83735; 84484; 85025; 87086; 87186; 93005; 93010; 93880-TC; 95816; 99285-25; C9803-CS; U0003; U0005

== ENCOUNTER 2021-10-30 20:49 | Emergency (ER) | payer OTHER ==
[2021-10-30 20:53] VITALS: BP 136/89; PULSE 73; RESP 18; TEMP 98; BMI 27.0
[2021-10-30] MEDS ORDERED: ACETAMINOPHEN 1000 MG/100 ML BAG IVPB ONE (22:14)
[2021-10-30] MEDS ORDERED: SODIUM CHLORIDE 500 ML IV STA (22:14)
[2021-10-30] MEDS ORDERED: ONDANSETRON 4 MG/2 ML VIAL IVPUSH ONE (22:15)
[2021-10-30] MEDS ORDERED: ONDANSETRON 4 MG/2 ML VIAL ONE (22:51)
[2021-10-30] MEDS ORDERED: ACETAMINOPHEN INJECTION 100 ML IVPB ONE (22:51)
[2021-10-30 23:31] LABS: BASO % 0.4 % (0-2.0); HEMATOCRIT 34.3 % (32.4-45.2); HEMOGLOBIN 11.1 GM/dL (10.7-15.3); LYMPH % 7.1 % (8-40); MCH 24.3 pg (25.7-33.7); MCHC 32.5 g/dl (32.0-36.0); MEAN CELL VOLUME 74.7 fl (80-96); MEAN PLT VOLUME 8.9 fl (7.5-11.1); MONO % 1.5 % (3.8-10.2); PH,URINE 6.5 (5.0-8.0); PLATELET COUNT 225 10^3/uL (134-434); RBC 4.59 M/mm3 (3.60-5.2); RDW 18.8 % (11.6-15.6); URINE APPEARANCE CLEAR; URINE BILIRUBIN NEGATIVE (NEGATIVE); URINE COLOR YELLOW; URINE GLUCOSE (UA) NEGATIVE (NEGATIVE); URINE KETONE NEGATIVE (NEGATIVE); URINE LEUK ESTERASE NEGATIVE (NEGATIVE); URINE NITRITE NEGATIVE (NEGATIVE); URINE PROTEIN NEGATIVE (NEGATIVE); URINE UROBILINOGEN 0.2 mg/dL (0.2-1.0); WHITE BLOOD COUNT 9.8 K/mm3 (4.0-10.0)
[2021-10-30 23:44] LABS: CALCIUM 9.5 mg/dL (8.5-10.1)
[2021-10-30 23:45] LABS: ALBUMIN 4.3 g/dl (3.4-5.0); BLOOD UREA NITROGEN 17.2 mg/dL (7-18); MAGNESIUM 2.2 mg/dL (1.8-2.4)
[2021-10-30 23:49] LABS: TOT PROT 7.7 g/dl (6.4-8.2)
[2021-10-30 23:50] LABS: BILIRUBIN,TOTAL 0.3 mg/dL (0.2-1)
[2021-10-31] MEDS ORDERED: FAMOTIDINE 20 MG/50 ML IVPB 20 MG/50 ML MG IVPB ONE ×2 (00:31→00:50)
[2021-10-31 03:13] LABS: ANISOCYTOSIS 2+; MACROCYTOSIS 0; OVALOCYTE 2+
== END 2021-10-31 01:04 | disposition home or self-care (01) ==
LOC: JER 20:49
PROC: 3E033GC Introduction of Other Therapeutic Substance into Peripheral Vein, Percutaneous Approach (ICD-10-PCS; 2021-10-30)
PROC: 3E0337Z Introduction of Electrolytic and Water Balance Substance into Peripheral Vein, Percutaneous Approach (ICD-10-PCS; 2021-10-30)
PROC: 3E033GC Introduction of Other Therapeutic Substance into Peripheral Vein, Percutaneous Approach (ICD-10-PCS; 2021-10-30)
PROC: 3E033NZ Introduction of Analgesics, Hypnotics, Sedatives into Peripheral Vein, Percutaneous Approach (ICD-10-PCS; principal; 2021-10-31)
DX: R10.11 Right upper quadrant pain (principal)
CPT/HCPCS: 36415; 76705-TC; 80053; 81003; 83690; 83735; 85025; 93005; 93010; 99285-25

== ENCOUNTER 2022-07-16 02:01 | Emergency (ER) | payer OTHER ==
[2022-07-16 02:09] VITALS: RESP 18; BMI 27.3
[2022-07-16] MEDS ORDERED: SODIUM CHLORIDE 1,000 ML IV ONE (02:57)
[2022-07-16] MEDS ORDERED: ACETAMINOPHEN 1000 MG/100 ML BAG IVPB ONE (03:17)
[2022-07-16] MEDS ORDERED: ACETAMINOPHEN INJECTION 100 ML IVPB ONE (03:18)
[2022-07-16] MEDS ORDERED: morphine CARPU-JECT 2 MG/1 ML DISP.SYRIN IVPUSH ONE (03:45)
[2022-07-16 04:33] VITALS: BP 118/77; TEMP 98
[2022-07-16 05:58] VITALS: PULSE 94
== END 2022-07-16 06:07 | disposition home or self-care (01) ==
LOC: JER 02:01
PROC: 3E033NZ Introduction of Analgesics, Hypnotics, Sedatives into Peripheral Vein, Percutaneous Approach (ICD-10-PCS; principal; 2022-07-16)
PROC: 3E033GC Introduction of Other Therapeutic Substance into Peripheral Vein, Percutaneous Approach (ICD-10-PCS; 2022-07-16)
PROC: 3E0337Z Introduction of Electrolytic and Water Balance Substance into Peripheral Vein, Percutaneous Approach (ICD-10-PCS; 2022-07-16)
DX: F19.10 Other psychoactive substance abuse, uncomplicated (principal); R00.2 Palpitations
CPT/HCPCS: 71046-TC-FY; 93005; 93010; 96361; 96374; 96375; 99284-25

== ENCOUNTER 2022-11-24 09:41 | Emergency (ER) | payer OTHER ==
[2022-11-24 09:49] VITALS: BP 119/72; PULSE 69; RESP 20; TEMP 97.7; BMI 26.4
[2022-11-24] MEDS ORDERED: ACETAMINOPHEN 1000 MG/100 ML BAG IVPB ONE (11:33)
[2022-11-24] MEDS ORDERED: ACETAMINOPHEN INJECTION 100 ML IVPB ONE (11:34)
[2022-11-24 11:53] LABS: BASO % 1.1 % (0-2.0); HEMATOCRIT 33.9 % (32.4-45.2); HEMOGLOBIN 11.1 GM/dL (10.7-15.3); LYMPH % 29.9 % (8-40); MCH 23.7 pg (25.7-33.7); MCHC 32.6 g/dl (32.0-36.0); MEAN CELL VOLUME 72.8 fl (80-96); MEAN PLT VOLUME 8.5 fl (7.5-11.1); MONO % 7.2 % (3.8-10.2); NEUT % 58.8 % (42.8-82.8); PLATELET COUNT 243 10^3/uL (134-434); RBC 4.66 M/mm3 (3.60-5.2); RDW 16.7 % (11.6-15.6); WHITE BLOOD COUNT 6.5 K/mm3 (4.0-10.0)
[2022-11-24 12:25] LABS: POTASSIUM 4.6 mmol/L (3.5-5.1)
[2022-11-24 12:28] LABS: ALBUMIN 3.9 g/dl (3.4-5.0); BLOOD UREA NITROGEN 13.8 mg/dL (7-18); CALCIUM 8.7 mg/dL (8.5-10.1); MAGNESIUM 2.1 mg/dL (1.8-2.4)
[2022-11-24 12:31] LABS: CREATININE 0.8 mg/dL (0.55-1.3); PHOSPHOROUS 3.9 mg/dL (2.5-4.9)
[2022-11-24 12:33] LABS: BILIRUBIN,TOTAL 0.6 mg/dL (0.2-1); TOT PROT 7.2 g/dl (6.4-8.2)
== END 2022-11-24 12:45 | disposition home or self-care (01) ==
LOC: JER 09:41
PROC: 3E033NZ Introduction of Analgesics, Hypnotics, Sedatives into Peripheral Vein, Percutaneous Approach (ICD-10-PCS; principal; 2022-11-24)
DX: M54.50 Low back pain, unspecified (principal); M25.551 Pain in right hip; M25.552 Pain in left hip
CPT/HCPCS: 36415; 80053; 82306; 82607; 83735; 84100; 84425; 84703; 85025; 99284-25

== ENCOUNTER 2023-01-29 18:44 | Emergency (ER) | payer OTHER ==
[2023-01-29 18:57] VITALS: BMI 27.3
[2023-01-29] MEDS ORDERED: ONDANSETRON 4 MG/2 ML VIAL IVPUSH ONE (19:51)
[2023-01-29] MEDS ORDERED: ACETAMINOPHEN 1000 MG/100 ML BAG IVPB ONE (19:51)
[2023-01-29] MEDS ORDERED: LACTATED RINGERS SOLUTION 1000 ML INFUS.BAG IV ONE (19:51)
[2023-01-29] MEDS ORDERED: ONDANSETRON 4 MG/2 ML VIAL ONE (20:47)
[2023-01-29] MEDS ORDERED: ACETAMINOPHEN INJECTION 100 ML IVPB ONE (20:47)
[2023-01-29 21:16] LABS: BASO % 0.9 % (0-2.0); EOS % 1.7 % (0-4.5); HEMATOCRIT 31.5 % (32.4-45.2); LYMPH % 24.3 % (8-40); MCH 23.1 pg (25.7-33.7); MCHC 31.8 g/dl (32.0-36.0); MEAN CELL VOLUME 72.6 fl (80-96); MEAN PLT VOLUME 9.1 fl (7.5-11.1); MONO % 5.5 % (3.8-10.2); NEUT % 67.6 % (42.8-82.8); PLATELET COUNT 275 10^3/uL (134-434); RBC 4.34 M/mm3 (3.60-5.2); RDW 16.4 % (11.6-15.6); WHITE BLOOD COUNT 8.2 K/mm3 (4.0-10.0)
[2023-01-29 21:30] LABS: ACTIVATED PTT 30.8 SECONDS (25.2-36.5); PROTHROMBIN TIME (PATIENT) 11.6 SEC (9.7-13.0)
[2023-01-29 21:50] LABS: POTASSIUM 4.6 mmol/L (3.5-5.1)
[2023-01-29 21:52] LABS: ALBUMIN 3.9 g/dl (3.4-5.0); BLOOD UREA NITROGEN 18.5 mg/dL (7-18); CALCIUM 8.8 mg/dL (8.5-10.1); MAGNESIUM 2.3 mg/dL (1.8-2.4)
[2023-01-29 21:56] LABS: BILIRUBIN,TOTAL 0.2 mg/dL (0.2-1)
[2023-01-29 21:57] LABS: TOT PROT 7.1 g/dl (6.4-8.2)
[2023-01-29 21:59] LABS: URINE APPEARANCE CLEAR; URINE BILIRUBIN NEGATIVE (NEGATIVE); URINE COLOR YELLOW; URINE GLUCOSE (UA) NEGATIVE (NEGATIVE); URINE KETONE NEGATIVE (NEGATIVE); URINE LEUK ESTERASE NEGATIVE (NEGATIVE); URINE NITRITE NEGATIVE (NEGATIVE); URINE PROTEIN NEGATIVE (NEGATIVE)
[2023-01-29 22:02] LABS: HCG,QUALITATIVE URINE Negative
[2023-01-29] MEDS ORDERED: methylPREDNISolone NA SUCC 125 MG/2 ML VIAL IVPB ONE (22:41)
[2023-01-29] MEDS ORDERED: methylPREDNISolone NA SUCC 125 MG/2 ML VIAL ONE (22:54)
[2023-01-30] MEDS ORDERED: morphine CARPU-JECT 2 MG/1 ML DISP.SYRIN IVPUSH ONE (00:19)
[2023-01-30 01:00] VITALS: TEMP 97.8
[2023-01-30 04:25] VITALS: BP 120/75; PULSE 80; RESP 18
== END 2023-01-30 04:26 | disposition home or self-care (01) ==
LOC: JER 18:44
PROC: 3E033NZ Introduction of Analgesics, Hypnotics, Sedatives into Peripheral Vein, Percutaneous Approach (ICD-10-PCS; principal; 2023-01-29)
PROC: 3E033GC Introduction of Other Therapeutic Substance into Peripheral Vein, Percutaneous Approach (ICD-10-PCS; 2023-01-29)
PROC: 3E033GC Introduction of Other Therapeutic Substance into Peripheral Vein, Percutaneous Approach (ICD-10-PCS; 2023-01-29)
PROC: 3E033GC Introduction of Other Therapeutic Substance into Peripheral Vein, Percutaneous Approach (ICD-10-PCS; 2023-01-29)
PROC: 3E033GC Introduction of Other Therapeutic Substance into Peripheral Vein, Percutaneous Approach (ICD-10-PCS; 2023-01-30)
PROC: 3E033GC Introduction of Other Therapeutic Substance into Peripheral Vein, Percutaneous Approach (ICD-10-PCS; 2023-01-30)
DX: R10.11 Right upper quadrant pain (principal); R10.31 Right lower quadrant pain; R11.2 Nausea with vomiting, unspecified; R63.8 Other symptoms and signs concerning food and fluid intake; E86.0 Dehydration
CPT/HCPCS: 36415; 74177-TC; 76705-TC; 80053; 81003; 83690; 83735; 84100; 84703; 85025; 85610; 85730; 86850; 86900; 86901; 87086; 93005; 93010; 96374; 96375; 96376; 99285-25

== ENCOUNTER 2023-04-06 15:04 | Emergency (ER) | payer OTHER ==
[2023-04-06 15:10] VITALS: BP 116/81; RESP 20; TEMP 98.3; BMI 25.8
[2023-04-06] MEDS ORDERED: PHENAZOPYRIDINE HCL 100 MG TABLET (FP) PO ONE (15:36)
[2023-04-06 15:37] LABS: EPI CELLS 7 /uL (0-25.1); HYALINE CASTS 3 /uL (0-3.1); URINE APPEARANCE CLOUDY; URINE BACTERIA 5646 /uL (0-1359); URINE BILIRUBIN NEGATIVE (NEGATIVE); URINE COLOR YELLOW; URINE GLUCOSE (UA) NEGATIVE (NEGATIVE); URINE KETONE TRACE (NEGATIVE); URINE LEUK ESTERASE 3+ (NEGATIVE); URINE NITRITE POSITIVE (NEGATIVE); URINE PROTEIN 1+ (NEGATIVE); URINE RBC 675 /uL (0-23.9); URINE WBC 2303 /uL (0-25.8)
[2023-04-06] MEDS ORDERED: PHENAZOPYRIDINE HCL 100 MG TABLET (FP) ONE (15:37)
[2023-04-06 16:06] VITALS: PULSE 84
[2023-04-06] MEDS ORDERED: NITROFURANTOIN MONOHYD/M-CRYST 100 MG CAPSULE PO SCH (22:00)
== END 2023-04-06 16:07 | disposition home or self-care (01) ==
LOC: JERFT 15:04
DX: N39.0 Urinary tract infection, site not specified (principal); R30.0 Dysuria; R35.0 Frequency of micturition; R39.15 Urgency of urination; R30.9 Painful micturition, unspecified
CPT/HCPCS: 36415; 81003; 84703; 87086; 87186; 87491; 87591; 99283-25

== ENCOUNTER 2023-07-30 18:20 | Emergency (ER) | payer OTHER ==
[2023-07-30 18:31] VITALS: BP 121/65; PULSE 77; RESP 20; TEMP 98.3; BMI 27.3
[2023-07-30] MEDS ORDERED: MECLIZINE HCL 25 MG TABLET (FP) ONE (19:58)
[2023-07-30] MEDS ORDERED: ACETAMINOPHEN INJECTION 100 ML IVPB ONE (19:59)
[2023-07-30 20:03] LABS: BASO % 0.2 % (0-2.0); EOS % 0.2 % (0-4.5); HEMATOCRIT 33.5 % (32.4-45.2); HEMOGLOBIN 10.6 GM/dL (10.7-15.3); LYMPH % 6.8 % (8-40); MCH 23.2 pg (25.7-33.7); MCHC 31.6 g/dl (32.0-36.0); MEAN CELL VOLUME 73.4 fl (80-96); MEAN PLT VOLUME 8.6 fl (7.5-11.1); NEUT % 90.8 % (42.8-82.8); PLATELET COUNT 205 10^3/uL (134-434); RBC 4.56 M/mm3 (3.60-5.2); RDW 16.4 % (11.6-15.6); WHITE BLOOD COUNT 8.4 K/mm3 (4.0-10.0)
[2023-07-30] MEDS: ACETAMINOPHEN 1000 MG/100 ML BAG IVPB ONE (20:03)
[2023-07-30] MEDS: MECLIZINE HCL 25 MG TABLET (FP) PO ONE (20:03)
[2023-07-30 20:13] LABS: POTASSIUM 4.4 mmol/L (3.5-5.1)
[2023-07-30 20:15] LABS: CALCIUM 9.7 mg/dL (8.5-10.1)
[2023-07-30 20:16] LABS: BLOOD UREA NITROGEN 13.2 mg/dL (7-18); MAGNESIUM 2.4 mg/dL (1.8-2.4)
[2023-07-30 20:19] LABS: CREATININE 0.8 mg/dL (0.55-1.3)
[2023-07-30 20:21] LABS: BILIRUBIN,TOTAL 0.4 mg/dL (0.2-1); TOT PROT 7.4 g/dl (6.4-8.2)
[2023-07-30] MEDS ORDERED: METOCLOPRAMIDE HCL INJECTION 10 MG/2 ML VIAL ONE (22:37)
[2023-07-30] MEDS: METOCLOPRAMIDE HCL INJECTION 10 MG/2 ML VIAL IVPB ONE (22:44)
[2023-07-30] MEDS: SODIUM CHLORIDE 0.9% 500 ML INFUS.BAG IV ONE (22:44)
== END 2023-07-31 00:09 | disposition home or self-care (01) ==
LOC: JER 18:20
PROC: 3E033NZ Introduction of Analgesics, Hypnotics, Sedatives into Peripheral Vein, Percutaneous Approach (ICD-10-PCS; principal; 2023-07-30)
PROC: 3E033GC Introduction of Other Therapeutic Substance into Peripheral Vein, Percutaneous Approach (ICD-10-PCS; 2023-07-30)
DX: S00.83XA Contusion of other part of head, initial encounter (principal); R42 Dizziness and giddiness; R05.9 Cough, unspecified; R09.81 Nasal congestion; M54.2 Cervicalgia; W10.9XXA Fall (on) (from) unspecified stairs and steps, initial encounter; Z20.822 Contact with and (suspected) exposure to COVID-19
CPT/HCPCS: 0241U-QW; 36415; 70450-TC; 72125-TC; 80053; 83735; 84703; 85025; 93005; 93010; 96374; 96375; 99285-25; J0131

== ENCOUNTER 2023-09-01 04:34 | Emergency (ER) | payer OTHER ==
[2023-09-01 04:48] VITALS: BP 93/67; PULSE 77; RESP 20; TEMP 97.5; BMI 25.8
[2023-09-01] MEDS ORDERED: LORazepam 0.5 MG TABLET ONE (05:29)
[2023-09-01] MEDS: LORazepam 2 MG TABLET PO ONE (05:32)
== END 2023-09-01 06:20 | disposition home or self-care (01) ==
LOC: JER 04:34
DX: R00.2 Palpitations (principal); F41.9 Anxiety disorder, unspecified
CPT/HCPCS: 93005; 93010; 99283-25

== ENCOUNTER 2023-09-04 12:11 | Emergency (ER) | payer OTHER ==
[2023-09-04 12:35] VITALS: BMI 25.8
[2023-09-04 14:34] LABS: EOS % 3.4 % (0-4.5); HEMATOCRIT 34.3 % (32.4-45.2); HEMOGLOBIN 10.9 GM/dL (10.7-15.3); MCH 22.9 pg (25.7-33.7); MCHC 31.7 g/dl (32.0-36.0); MEAN CELL VOLUME 72.2 fl (80-96); MEAN PLT VOLUME 8.7 fl (7.5-11.1); MONO % 7.3 % (3.8-10.2); NEUT % 59.3 % (42.8-82.8); PLATELET COUNT 209 10^3/uL (134-434); RBC 4.75 M/mm3 (3.60-5.2); RDW 16.8 % (11.6-15.6); WHITE BLOOD COUNT 6.3 K/mm3 (4.0-10.0)
[2023-09-04 14:38] LABS: EPI CELLS 3 /uL (0-25.1); HYALINE CASTS 0 /uL (0-3.1); PH,URINE 6.5 (5.0-8.0); URINE APPEARANCE CLEAR; URINE BACTERIA 6 /uL (0-1359); URINE BILIRUBIN NEGATIVE (NEGATIVE); URINE COLOR YELLOW; URINE GLUCOSE (UA) NEGATIVE (NEGATIVE); URINE KETONE NEGATIVE (NEGATIVE); URINE LEUK ESTERASE 1+ (NEGATIVE); URINE NITRITE NEGATIVE (NEGATIVE); URINE PROTEIN NEGATIVE (NEGATIVE); URINE RBC 4 /uL (0-23.9); URINE WBC 12 /uL (0-25.8)
[2023-09-04] MEDS: SODIUM CHLORIDE 1,000 ML IV STA (14:55)
[2023-09-04 15:06] LABS: POTASSIUM 4.3 mmol/L (3.5-5.1)
[2023-09-04 15:08] LABS: ALBUMIN 4.2 g/dl (3.4-5.0); CALCIUM 9.3 mg/dL (8.5-10.1)
[2023-09-04 15:12] LABS: CREATININE 0.8 mg/dL (0.55-1.3)
[2023-09-04 15:13] LABS: BILIRUBIN,TOTAL 0.3 mg/dL (0.2-1); TOT PROT 7.7 g/dl (6.4-8.2)
[2023-09-04 15:25] LABS: URINE APPEARANCE CLEAR; URINE BILIRUBIN NEGATIVE (NEGATIVE); URINE COLOR YELLOW; URINE GLUCOSE (UA) NEGATIVE (NEGATIVE); URINE KETONE NEGATIVE (NEGATIVE); URINE LEUK ESTERASE NEGATIVE (NEGATIVE); URINE NITRITE NEGATIVE (NEGATIVE); URINE PROTEIN NEGATIVE (NEGATIVE); URINE UROBILINOGEN 0.2 mg/dL (0.2-1.0)
[2023-09-04 16:55] VITALS: BP 120/73; PULSE 65; RESP 18; TEMP 97.9
== END 2023-09-04 17:31 | disposition home or self-care (01) ==
LOC: JER 12:11
PROC: 0T9B70Z Drainage of Bladder with Drainage Device, Via Natural or Artificial Opening (ICD-10-PCS; principal; 2023-09-04)
PROC: 3E0337Z Introduction of Electrolytic and Water Balance Substance into Peripheral Vein, Percutaneous Approach (ICD-10-PCS; 2023-09-04)
DX: R33.9 Retention of urine, unspecified (principal); R60.0 Localized edema; N76.89 Other specified inflammation of vagina and vulva
CPT/HCPCS: 36415; 80053; 81003; 83690; 84703; 85025; 87077; 87086; 93005; 93010; 99284-25

== ENCOUNTER 2023-09-05 05:18 | Emergency (ER) | payer OTHER ==
[2023-09-05 05:31] VITALS: BP 125/84; PULSE 90; RESP 20; TEMP 97.7; BMI 25.8
== END 2023-09-05 06:11 | disposition home or self-care (01) ==
LOC: JER 05:18
DX: T83.9XXA Unspecified complication of genitourinary prosthetic device, implant and graft, initial encounter (principal)
CPT/HCPCS: 99282-25

== ENCOUNTER 2023-10-07 05:04 | Day surgery (SDC) | payer OTHER ==
[2023-10-03 15:10] VITALS: BMI 27.0
[2023-10-07] MEDS ORDERED: MIDAZOLAM HCL 2 MG/2 ML SINGLE DOSE VIAL ONE (13:20)
[2023-10-07] MEDS ORDERED: PROPOFOL 20 ML ONE (13:20)
[2023-10-07] MEDS ORDERED: ONDANSETRON 4 MG/2 ML VIAL ONE (13:45)
[2023-10-07] MEDS ORDERED: DEXAMETHASONE SOD PHOSPHATE 4 MG/1 ML VIAL ONE (13:45)
[2023-10-07] MEDS ORDERED: KETOROLAC TROMETHAMINE 30 MG/1 ML VIAL ONE (14:14)
[2023-10-07] MEDS ORDERED: oxyCODONE HCL 5 MG TABLET PO PRN ×2 (14:29→15:36)
[2023-10-07] MEDS ORDERED: ONDANSETRON 4 MG/2 ML VIAL IVPUSH PRN (14:29)
[2023-10-07] MEDS ORDERED: LACTATED RINGERS SOLUTION 1,000 ML IV SCH (14:30)
[2023-10-07 16:01] VITALS: RESP 18
[2023-10-07 16:24] VITALS: BP 104/59; PULSE 64; TEMP 98
== END 2023-10-07 18:20 | disposition home or self-care (01) ==
LOC: JASU-SURG 05:04
PROVIDERS: ATTEND Obstetrics & Gynecology
PROC: 0UBC8ZZ Excision of Cervix, Via Natural or Artificial Opening Endoscopic (ICD-10-PCS; principal; 2023-10-07 12:00)
PROC: 0UB98ZZ Excision of Uterus, Via Natural or Artificial Opening Endoscopic (ICD-10-PCS; 2023-10-07 12:00)
DX: D25.9 Leiomyoma of uterus, unspecified (principal)
CPT/HCPCS: 81025; 82962; 88305-TC; 88341-TC; 88342-TC; 94760

== ENCOUNTER 2024-01-05 10:08 | Emergency (ER) | payer OTHER ==
[2024-01-05 10:59] VITALS: BP 108/79; PULSE 82; RESP 16; TEMP 97.8; BMI 27.3
[2024-01-05] MEDS ORDERED: ACETAMINOPHEN INJECTION 100 ML ONE (12:44)
[2024-01-05 12:46] LABS: EOS % 2.8 % (0-4.5); HEMATOCRIT 40.5 % (32.4-45.2); LYMPH % 26.7 % (8-40); MCH 26.9 pg (25.7-33.7); MCHC 32.1 g/dl (32.0-36.0); MEAN CELL VOLUME 83.9 fl (80-96); MEAN PLT VOLUME 8.7 fl (7.5-11.1); MONO % 6.2 % (3.8-10.2); NEUT % 63.3 % (42.8-82.8); PLATELET COUNT 204 10^3/uL (134-434); RBC 4.83 M/mm3 (3.60-5.2); RDW 21.7 % (11.6-15.6); WHITE BLOOD COUNT 6.7 K/mm3 (4.0-10.0)
[2024-01-05] MEDS: ACETAMINOPHEN 1000 MG/100 ML BAG IVPB ONE (12:52)
[2024-01-05 12:58] LABS: POTASSIUM 4.3 mmol/L (3.5-5.1)
[2024-01-05 13:00] LABS: CALCIUM 9.1 mg/dL (8.5-10.1)
[2024-01-05 13:01] LABS: ALBUMIN 3.5 g/dl (3.4-5.0); BLOOD UREA NITROGEN 14.5 mg/dL (7-18); MAGNESIUM 2.1 mg/dL (1.8-2.4)
[2024-01-05 13:04] LABS: CREATININE 0.9 mg/dL (0.55-1.3)
[2024-01-05 13:05] LABS: BILIRUBIN,TOTAL 0.4 mg/dL (0.2-1)
[2024-01-05 13:06] LABS: TOT PROT 6.8 g/dl (6.4-8.2)
[2024-01-05 13:12] LABS: LACTIC ACID 2.5 mmol/L (0.4-2.0)
[2024-01-05 13:21] LABS: ANISOCYTOSIS 2+; MACROCYTOSIS 0
== END 2024-01-05 16:09 | disposition home or self-care (01) ==
LOC: JER 10:08
PROC: 3E033NZ Introduction of Analgesics, Hypnotics, Sedatives into Peripheral Vein, Percutaneous Approach (ICD-10-PCS; principal; 2024-01-05)
DX: R56.9 Unspecified convulsions (principal)
CPT/HCPCS: 36415; 70450-TC; 80053; 82962; 83605; 83735; 84484; 84703; 85025; 93005; 93010; 96374; 99285-25; J0131

== ENCOUNTER 2024-07-07 17:42 | Emergency (ER) | payer OTHER ==
[2024-07-07 17:58] VITALS: TEMP 98.3; BMI 30.1
[2024-07-07] MEDS ORDERED: ONDANSETRON 4 MG/2 ML VIAL ONE (20:09)
[2024-07-07] MEDS: ONDANSETRON 4 MG/2 ML VIAL IVPUSH ONE (20:20)
[2024-07-07 20:27] LABS: ABSOLUTE IMMATURE GRANULOCYTES 0.01 x10^3/uL (0.0-0.031); BASOPHILS # 0.06 x10^3/uL (0.01-0.08); HEMATOCRIT 39.9 % (34.1-44.9); HEMOGLOBIN 12.9 g/dL (11.2-15.7); MCHC 32.3 g/dl (32.2-35.5); MEAN CELL VOLUME 88.9 fl (79.4-94.8); MEAN PLT VOLUME 11.6 fl (9.4-12.3); MONOCYTE # 0.48 x10^3/uL (0.24-0.86); MONOCYTE % 7.2 % (4.7-12.5); PLATELET COUNT 246 x10^3/uL (182-369); RDW 12.7 % (12.2-17.1)
[2024-07-07 21:05] LABS: POTASSIUM 4.3 mmol/L (3.5-5.1)
[2024-07-07 21:07] LABS: CALCIUM 9.5 mg/dL (8.5-10.1)
[2024-07-07 21:08] LABS: ALBUMIN 3.4 g/dl (3.4-5.0); BLOOD UREA NITROGEN 10.6 mg/dL (7-18)
[2024-07-07 21:11] LABS: CREATININE 0.8 mg/dL (0.55-1.3)
[2024-07-07 21:12] LABS: BILIRUBIN,TOTAL 0.3 mg/dL (0.2-1); TOT PROT 7.1 g/dl (6.4-8.2)
[2024-07-07 21:29] VITALS: BP 129/77; PULSE 71; RESP 19
[2024-07-07 21:50] LABS: HCV DIAGNOSTIC IN-HOUSE W/RFLX NON-REACTIVE (NONREACTIVE); HIV INTERPRETATION NEGATIVE (NEGATIVE)
== END 2024-07-07 21:43 | disposition home or self-care (01) ==
LOC: JER 17:42
PROC: 3E033GC Introduction of Other Therapeutic Substance into Peripheral Vein, Percutaneous Approach (ICD-10-PCS; principal; 2024-07-07)
DX: I10 Essential (primary) hypertension (principal); R00.2 Palpitations; R10.13 Epigastric pain; G89.29 Other chronic pain; R11.0 Nausea; R51.9 Headache, unspecified
CPT/HCPCS: 36415; 70450-TC; 80053; 82962; 83690; 85025; 86803; 87389; 93005; 93010; 99285-25